=== PATIENT | female | born 1935 | race Caucasian/White ===

== ENCOUNTER 2017-03-03 15:31 | Inpatient (IN) | payer MEDICARE, MEDICAID ==
[2017-03-03 15:31] VITALS: BMI 35.6
--- NOTE | 2017-03-03 15:45 | C.PDOC ---
History Of Present Illness 81F c/o sob and productive cough and chest pain since yesterday worse today, she says from "bronchial asthma." she says she is scheduled for a "catheter with Dr Pendleton on monday." Time Seen by Provider: 03/03/17 15:34 Chief Complaint (Nursing): Chest Pain Past Medical History Vital Signs: Last Vital Signs Temp 98.3 F 03/10/17 14:15 Pulse 82 03/10/17 14:15 Resp 18 03/10/17 14:15 BP 110/81 03/10/17 14:15 Pulse Ox 97 03/10/17 14:15 - Medical History PMH: Anxiety, Arthritis, Asthma, Atrial Fibrillation, Bipolar Disorder, CAD, Cardia Arrhythmia (a fib), CHF, COPD, CVA, Dementia, Depression, Diabetes, Diverticulitis, Fractures (left hip), Gastritis, Hiatal Hernia, HTN, Hypercholesterolemia, Hyperlipidemia, Hypothyroidism, Osteoporosis, Peripheral Edema, Chronic Kidney Disease Surgical History: Cholecystectomy (documented in history but patient does not acknowledge), - [facility] Procedures CORONAR ARTERIOGR-2 CATH (08/24/12) ESOPHAGOGASTRODUODENOSCOPY [EGD] W/CLOSED BIOPSY (10/03/13) EXCISION OF DUODENUM, ENDO, DIAGN (11/02/15) EXCISION OF STOMACH, ENDO, DIAGN (11/02/15) EXERCISE TRMT MUSCULOSK LOW BACK/LE W ASSIST EQUIP (04/26/16) GAIT TRAINING/AMBULAT TREATMENT USING ASSIST EQUIPMENT (04/26/16) GAIT TRAINING/FUNCTIONAL AMBULATION TREATMENT (06/19/15) HOME MANAGEMENT TREATMENT (06/19/15) HOME MANAGEMENT TREATMENT USING ASSIST EQUIPMENT (04/26/16) INTRODUCE OF OTH THERAP SUBST INTO RESP TRACT, VIA OPENING (12/23/16) INTRODUCTION OF ANTI-INFLAM INTO PERIPH VEIN, PERC APPROACH (04/26/16) INTRODUCTION OF ANTI-INFLAM INTO RESP TRACT, VIA OPENING (04/26/16) INTRODUCTION OF SERUM/TOX/VACCINE INTO MUSCLE, PERC APPROACH (03/08/16) LT HEART ANGIOCARDIOGRAM (08/24/12) RT/LEFT HEART CARD CATH (08/24/12) THERAPEUTIC EXERCISE TREATMENT OF MUSCULOSK WHOLE (06/19/15) VACCINATION NEC (10/03/13) Family History: States: Other Other Family History: nc - Social History Hx Tobacco Use: No Hx Alcohol Use: No Hx Substance Use: No - Immunization History Hx Tetanus Toxoid Vaccination: No Hx Influenza Vaccination: No Hx Pneumococcal Vaccination: No Review Of Systems Constitutional: Negative for: Fever Cardiovascular: Positive for: Chest Pain, Edema (chronic) Respiratory: Positive for: Cough, Shortness of Breath. Negative for: Hemoptysis Gastrointestinal: Negative for: Nausea, Vomiting, Abdominal Pain Neurological: Negative for: Weakness, Numbness, Headache Physical Exam - Physical Exam Appears: Non-toxic Skin: Warm, Dry Eye(s): bilateral: PERRL Nose: No Epistaxis Oral Mucosa: Moist Cardiovascular: Rhythm Regular Respiratory: Decreased Breath Sounds, No Accessory Muscle Use Gastrointestinal/Abdominal: Soft, No Tenderness Extremity: Swelling (1+ BLE) Pulses: Left Radial: Normal, Right Radial: Normal Neurological/Psych: Oriented x3, Normal Motor, Normal Sensation, Other (no focla deficits) ED Course And Treatment - Laboratory Results Result Diagrams: 03/08/17 12:00 03/10/17 07:39 Medical Decision Making Medical Decision Making: ecg- a fib w rvr 114, lad, no stemi cxr- HISTORY:sob cough COMPARISON: No prior. FINDINGS: LUNGS: There are low lung volumes. The lungs are clear. PLEURA: No significant pleural effusion identified, no pneumothorax apparent. CARDIOVASCULAR: Normal. OSSEOUS STRUCTURES: No significant abnormalities. VISUALIZED UPPER ABDOMEN: Normal. OTHER FINDINGS: None. IMPRESSION: No active pulmonary disease. Disposition - Disposition Disposition: HOSPITALIZED Disposition Time: 16:59 Condition: STABLE - Clinical Impression Clinical Impression: Chest pain
[2017-03-03] MEDS ORDERED: Albuterol-Ipratrop 3 mg / 0.5 (3 ml) UD IH STA (15:46)
[2017-03-03 16:09] LABS: VENOUS BLOOD GAS BASE EXCESS 10.3 mmol/L (0.0-2.0); VENOUS BLOOD GAS PCO2 57 mmHg (40-60); VENOUS BLOOD PH 7.42 (7.32-7.43)
[2017-03-03 16:10] LABS: BASO # 0.1 K/uL (0.0-0.2); BASO % 2.1 % (0.0-2.0); EOS # 0.1 K/uL (0.0-0.7); EOS % 1.1 % (0.0-4.0); HEMATOCRIT 40.1 % (34.0-47.0); LYMPH # 3.2 K/uL (1.0-4.3); LYMPH % 48.8 % (20.0-40.0); MEAN CELL VOLUME 89.9 fL (81.0-99.0); MEAN CORPUSCULAR HEMOGLOBIN 29.2 pg (27.0-31.0); MEAN CORPUSCULAR HGB CONC 32.5 g/dL (33.0-37.0); MEAN PLATELET VOLUME 8.8 fL (7.2-11.7); MONO # 0.7 K/uL (0.0-0.8); MONO % 10.8 % (0.0-10.0); NRBC % 0.1 % (0.0-2.0); RED CELL DISTRIBUTION WIDTH 14.8 % (11.5-14.5); WHITE BLOOD COUNT 6.5 K/uL (4.8-10.8)
--- NOTE | 2017-03-03 16:10 | RAD ---
HISTORY: sob cough COMPARISON: No prior. FINDINGS: LUNGS: There are low lung volumes. The lungs are clear. PLEURA: No significant pleural effusion identified, no pneumothorax apparent. CARDIOVASCULAR: Normal. OSSEOUS STRUCTURES: No significant abnormalities. VISUALIZED UPPER ABDOMEN: Normal. OTHER FINDINGS: None. IMPRESSION: No active pulmonary disease.
[2017-03-03] MEDS ORDERED: Albuterol-Ipratrop 3 mg / 0.5 (3 ml) UD ONE (16:12)
[2017-03-03 16:21] LABS: CHLORIDE 97 mmol/L (98-107); SODIUM 136 mmol/L (132-148)
[2017-03-03 16:22] LABS: POTASSIUM 3.9 mmol/L (3.6-5.2)
[2017-03-03 16:23] LABS: GFR AFRICAN-AMERICAN > 60
[2017-03-03 16:24] LABS: ALB/GLOB RATIO 1.7 (1.0-2.1); ALKALINE PHOSPHATASE 99 U/L (38-126); ALT/SGPT 42 U/L (9-52); AST/SGOT 32 U/L (14-36); BILIRUBIN,TOTAL 0.7 mg/dL (0.2-1.3); BLOOD UREA NITROGEN 23 mg/dL (7-17); CARBON DIOXIDE 31 mmol/L (22-30); GLUCOSE,RANDOM 86 mg/dL (65-105); TOTAL PROTEIN 6.1 g/dL (6.3-8.3)
[2017-03-03 16:25] LABS: CALCIUM 8.6 mg/dl (8.6-10.4)
[2017-03-03] MEDS ORDERED: MethylPREDNISolone 40 mg Vial IVP STA (23:14)
[2017-03-04] MEDS: Albuterol-Ipratrop 3 mg / 0.5 (3 ml) UD INH SCH ×4 (01:18→19:35)
[2017-03-04] MEDS: Levothyroxine 100 MCG TAB PO SCH (06:08)
[2017-03-04] MEDS ORDERED: (Novolog) Insulin Aspart, Recombinant 100 u/ml 10 ml vial SC SCH (07:30)
[2017-03-04] MEDS: Fluticasone-Salmeterol 500-50mcg Diskus INH SCH ×2 (07:58→19:35)
[2017-03-04 08:00] LABS: CHLORIDE 98 mmol/L (98-107)
[2017-03-04 08:01] LABS: POTASSIUM 3.7 mmol/L (3.6-5.2); SODIUM 135 mmol/L (132-148)
[2017-03-04 08:03] LABS: ALB/GLOB RATIO 1.1 (1.0-2.1); AST/SGOT 36 U/L (14-36); BILIRUBIN,TOTAL 0.4 mg/dL (0.2-1.3); BLOOD UREA NITROGEN 20 mg/dL (7-17); CARBON DIOXIDE 29 mmol/L (22-30); GFR AFRICAN-AMERICAN > 60; TOTAL PROTEIN 6.9 g/dL (6.3-8.3)
[2017-03-04 08:04] LABS: ALKALINE PHOSPHATASE 99 U/L (38-126); ALT/SGPT 45 U/L (9-52); CALCIUM 8.8 mg/dl (8.6-10.4); GLUCOSE,RANDOM 143 mg/dL (65-105)
[2017-03-04 08:18] LABS: FREE T4 1.65 ng/dL (0.78-2.19)
[2017-03-04 08:32] LABS: THYROID STIMULATING HORMONE 0.04 mIU/L (0.46-4.68)
--- NOTE | 2017-03-04 10:25 | CP.PCM.HP ---
History of Present Illness - History of Present Illness History of Present Illness: pt came for chest pain pressure and sob Present on Admission - Present on Admission Any Indicators Present on Admission: Yes Review of Systems - Review of Systems Systems not reviewed;Unavailable: Acuity of Condition - Constitutional Constitutional: Fatigue, Sleep Apnea, Weakness - EENT Eyes: As Per HPI Ears: As Per HPI Nose/Mouth/Throat: As Per HPI - Breasts Breasts: As Per HPI - Cardiovascular Cardiovascular: Chest Pain at Rest, Chest Pain with Activity, Dyspnea, Irregular Heart Rhythm, Leg Edema, Pedal Edema - Respiratory Respiratory: Dyspnea - Gastrointestinal Gastrointestinal: Constipation - Genitourinary Genitourinary: Urinary Frequency - Reproductive: Female Reproductive:Female: Post Menopausal - Menstruation Menstruation: Post Menopausal - Musculoskeletal Musculoskeletal: Arthralgias, Back Pain, Stiffness - Integumentary Integumentary: As Per HPI - Neurological Neurological: Lack of Coordination - Psychiatric Psychiatric: Depression - Endocrine Endocrine: Cold Intolorance - Hematologic/Lymphatic Hematologic: As Per HPI Past Patient History - Infectious Disease Hx of Infectious Diseases: None - Past Medical History & Family History Past Medical History?: Yes - Past Social History Smoking Status: Never Smoked Chewing Tobacco Use: No Cigar Use: No Alcohol: None Drugs: Denies Home Situation {Lives}: Alone Domestic Violence: Negative - CARDIAC Hx Atrial Fibrillation: Yes Hx Cardia Arrhythmia: Yes (a fib) Hx Congestive Heart Failure: Yes Hx Hypercholesterolemia: Yes Hx Hypertension: Yes Hx Peripheral Edema: Yes - PULMONARY Hx Asthma: Yes Hx Chronic Obstructive Pulmonary Disease (COPD): Yes - NEUROLOGICAL Hx Dementia: Yes - HEENT Hx HEENT Problems: Yes 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) Hx Glaucoma: Yes (right eye) - RENAL Hx Chronic Kidney Disease: Yes - ENDOCRINE/METABOLIC Hx Hypothyroidism: Yes - INTEGUMENTARY Hx Dermatological Problems: No Other/Comment: redness sacrum/buttocks - MUSCULOSKELETAL/RHEUMATOLOGICAL Hx Arthritis: Yes Hx Falls: Yes Hx Fractures: Yes (left hip) Hx Osteoporosis: Yes - GASTROINTESTINAL Hx Diverticulitis: Yes Hx Gastritis: Yes - GENITOURINARY/GYNECOLOGICAL Hx Genitourinary Disorders: Yes Hx Incontinence: Yes - PSYCHIATRIC Hx Anxiety: Yes Hx Bipolar Disorder: Yes Hx Depression: Yes Hx Substance Use: No - SURGICAL HISTORY Hx Cholecystectomy: Yes (documented in history but patient does not acknowledge) - ANESTHESIA Hx Anesthesia: Yes Hx Anesthesia Reactions: No Hx Malignant Hyperthermia: No Meds Allergies/Adverse Reactions: Allergies Allergy/AdvReac Type Severity Reaction Status Date / Time No Known Allergies Allergy Verified 03/03/17 15:38 Physical Exam - Constitutional Appears: Non-toxic - Head Exam Head Exam: ATRAUMATIC - Eye Exam Pupil Exam: PERRL - ENT Exam ENT Exam: Mucous Membranes Moist - Neck Exam Neck exam: Positive for: Full Rom - Respiratory Exam Respiratory Exam: Decreased Breath Sounds - Cardiovascular Exam Cardiovascular Exam: Tachycardia - GI/Abdominal Exam GI & Abdominal Exam: Normal Bowel Sounds Results - Vital Signs Recent Vital Signs: Last Vital Signs Temp 97.4 F L 03/04/17 07:51 Pulse 72 03/04/17 07:51 Resp 20 03/04/17 07:51 BP 119/76 03/04/17 07:51 Pulse Ox 98 03/04/17 07:51 - Labs Result Diagrams: 03/03/17 16:04 03/04/17 07:15 Labs: Laboratory Results - last 24 hr 03/03/17 03/03/17 03/03/17 16:00 16:04 16:04 WBC 6.5 RBC 4.46 Hgb 13.0 Hct 40.1 MCV 89.9 MCH 29.2 MCHC 32.5 L RDW 14.8 H Plt Count 176 MPV 8.8 Neut % (Auto) 37.2 L Lymph % (Auto) 48.8 H Florence % (Auto) 10.8 H Eos % (Auto) 1.1 Baso % (Auto) 2.1 H Neut # 2.4 Lymph # 3.2 Florence # 0.7 Eos # 0.1 Baso # 0.1 pO2 32 VBG pH 7.42 VBG pCO2 57 VBG HCO3 32.0 VBG Total CO2 38.7 H VBG O2 Sat (Calc) 65.7 H VBG Base Excess 10.3 H VBG Potassium 3.6 Sodium 139.0 136 Chloride 104.0 97 L Glucose 97 Lactate 1.1 FiO2 21.0 Potassium 3.9 Carbon Dioxide 31 H Anion Gap 12 BUN 23 H Creatinine 0.7 Est GFR ( Amer) > 60 Est GFR (Non-Af Amer) > 60 POC Glucose (mg/dL) Random Glucose 86 Calcium 8.6 Total Bilirubin 0.7 AST 32 ALT 42 Alkaline Phosphatase 99 Total Creatine Kinase CK-MB (Mass) Troponin I < 0.0120 Troponin I, Quant NT-Pro-B Natriuret Pep 2450 H Total Protein 6.1 L Albumin 3.8 Globulin 2.3 Albumin/Globulin Ratio 1.7 Free T4 TSH 3rd Generation Venous Blood Potassium 3.6 03/03/17 03/03/17 03/04/17 18:35 21:01 00:41 WBC RBC Hgb Hct MCV MCH MCHC RDW Plt Count MPV Neut % (Auto) Lymph % (Auto) Florence % (Auto) Eos % (Auto) Baso % (Auto) Neut # Lymph # [place] # Eos # Baso # pO2 VBG pH VBG pCO2 VBG HCO3 VBG Total CO2 VBG O2 Sat (Calc) VBG Base Excess VBG Potassium Sodium Chloride Glucose Lactate FiO2 Potassium Carbon Dioxide Anion Gap BUN Creatinine Est GFR ( Amer) Est GFR (Non-Af Amer) POC Glucose (mg/dL) 107 206 H Random Glucose Calcium Total Bilirubin AST ALT Alkaline Phosphatase Total Creatine Kinase 23 L CK-MB (Mass) 0.54 Troponin I Troponin I, Quant < 0.0120 NT-Pro-B Natriuret Pep Total Protein Albumin Globulin Albumin/Globulin Ratio Free T4 TSH 3rd Generation Venous Blood Potassium 03/04/17 03/04/17 03/04/17 06:45 07:15 07:15 WBC RBC Hgb Hct MCV MCH MCHC RDW Plt Count MPV Neut % (Auto) Lymph % (Auto) Florence % (Auto) Eos % (Auto) Baso % (Auto) Neut # Lymph # [place] # Eos # Baso # pO2 VBG pH VBG pCO2 VBG HCO3 VBG Total CO2 VBG O2 Sat (Calc) VBG Base Excess VBG Potassium Sodium Chloride Glucose Lactate FiO2 Potassium Carbon Dioxide Anion Gap BUN Creatinine Est GFR ( Amer) Est GFR (Non-Af Amer) POC Glucose (mg/dL) 144 H Random Glucose Calcium Total Bilirubin AST ALT Alkaline Phosphatase Total Creatine Kinase 20 L CK-MB (Mass) 0.51 Troponin I Troponin I, Quant < 0.0120 NT-Pro-B Natriuret Pep Total Protein Albumin Globulin Albumin/Globulin Ratio Free T4 1.65 TSH 3rd Generation 0.04 L Venous Blood Potassium 03/04/17 07:15 WBC RBC Hgb Hct MCV MCH MCHC RDW Plt Count MPV Neut % (Auto) Lymph % (Auto) Florence % (Auto) Eos % (Auto) Baso % (Auto) Neut # Lymph # [place] # Eos # Baso # pO2 VBG pH VBG pCO2 VBG HCO3 VBG Total CO2 VBG O2 Sat (Calc) VBG Base Excess VBG Potassium Sodium 135 Chloride 98 Glucose Lactate FiO2 Potassium 3.7 Carbon Dioxide 29 Anion Gap 13 BUN 20 H Creatinine 0.7 Est GFR ( Amer) > 60 Est GFR (Non-Af Amer) > 60 POC Glucose (mg/dL) Random Glucose 143 H Calcium 8.8 Total Bilirubin 0.4 AST 36 ALT 45 Alkaline Phosphatase 99 Total Creatine Kinase CK-MB (Mass) Troponin I Troponin I, Quant NT-Pro-B Natriuret Pep 3060 H Total Protein 6.9 Albumin 3.6 Globulin 3.3 Albumin/Globulin Ratio 1.1 Free T4 TSH 3rd Generation Venous Blood Potassium Assessment & Plan - Assessment and Plan (Free Text) Assessment: ac chest pain chf palpitation pulmonary htn hypothyroid arthritis prediabetic asthma Plan: as per orders - Date & Time Date: 03/04/17 Time: 10:31
[2017-03-04] MEDS: guaiFENesin 600 mg ER Tab PO SCH ×2 (10:30→18:29)
[2017-03-04] MEDS: diltiaZEM 240 mg/24 Hours CD Cap PO SCH (10:30)
[2017-03-04] MEDS: Enoxaparin 40 mg Syringe SC SCH (10:41)
[2017-03-04] MEDS ORDERED: DICLOFENAC SODIUM APPL TOP PRN (10:47)
[2017-03-04] MEDS ORDERED: Omega-3-Acid Ethyl Esters 1 GM Cap PO SCH (18:00)
[2017-03-04] MEDS: Pantoprazole 40 mg EC Tab PO SCH (18:29)
[2017-03-04] MEDS ORDERED: Magnesium Hydroxide Susp 30 ml UD PO ONE (23:31)
[2017-03-05] MEDS: Albuterol-Ipratrop 3 mg / 0.5 (3 ml) UD INH SCH ×4 (01:46→19:38)
[2017-03-05] MEDS: Levothyroxine 100 MCG TAB PO SCH (06:12)
[2017-03-05] MEDS: Sucralfate 1 gm/10 ml Oral Susp UD PO SCH ×3 (08:30→16:59)
[2017-03-05] MEDS: LIPASE/PROTEASE/AMYLASE 4,200 U ECC PO SCH ×3 (08:30→18:00)
[2017-03-05] MEDS: Fluticasone-Salmeterol 500-50mcg Diskus INH SCH ×2 (08:45→19:38)
[2017-03-05] MEDS: Omega-3-Acid Ethyl Esters 1 GM Cap PO SCH ×2 (10:41→18:25)
[2017-03-05] MEDS: guaiFENesin 600 mg ER Tab PO SCH ×2 (10:42→18:25)
[2017-03-05] MEDS: Pantoprazole 40 mg EC Tab PO SCH (10:42)
[2017-03-05] MEDS: diltiaZEM 240 mg/24 Hours CD Cap PO SCH (10:42)
[2017-03-05] MEDS: Enoxaparin 40 mg Syringe SC SCH (10:44)
--- NOTE | 2017-03-05 12:15 | CP.PCM.PN ---
Subjective - Date & Time of Evaluation Date of Evaluation: 03/05/17 Time of Evaluation: 12:12 - Subjective Subjective: less sob less oeadeama has cough today Objective - Vital Signs/Intake and Output Vital Signs (last 24 hours): Temp Pulse Resp BP Pulse Ox 98.0 F 109 H 20 98/56 L 97 03/05/17 08:32 03/05/17 08:32 03/05/17 08:32 03/05/17 10:45 03/05/17 08:32 Intake and Output: 03/05/17 03/05/17 06:59 18:59 Intake Total 300 Balance 300 - Medications Medications: Current Medications Albuterol/Ipratropium (Duoneb 3 Mg/0.5 Mg (3 Ml) Ud) 3 ml INH RQ6 [facility] Last Admin: 03/05/17 08:45 Dose: 3 ml Aspirin (Ecotrin) 81 mg PO DAILY [facility] Last Admin: 03/05/17 10:42 Dose: 81 mg Diltiazem HCl (Cardizem Cd) 240 mg PO DAILY [facility] Last Admin: 03/05/17 10:42 Dose: Not Given Docusate Sodium (Colace) 200 mg PO HS [facility] Last Admin: 03/04/17 22:51 Dose: 200 mg Enoxaparin Sodium (Lovenox) 40 mg SC DAILY [facility] Last Admin: 03/05/17 10:44 Dose: 40 mg Furosemide (Lasix) 40 mg IVP DAILY [facility] Last Admin: 03/05/17 10:44 Dose: Not Given Guaifenesin (Mucinex La) 600 mg PO BID [facility] Last Admin: 03/05/17 10:42 Dose: 600 mg Home Med (Sildenafil [Revatio]) 20 mg PO TID [facility] Insulin Aspart (Novolog) 0 unit SC [facility] PRN Reason: Protocol Isosorbide Mononitrate (Imdur Er) 30 mg PO DAILY [facility] Last Admin: 03/05/17 10:44 Dose: Not Given Levothyroxine Sodium (Synthroid) 100 mcg PO DAILY@0630 [facility] Last Admin: 03/05/17 06:12 Dose: 100 mcg Montelukast Sodium (Singulair) 10 mg PO HS [facility] Last Admin: 03/04/17 22:51 Dose: 10 mg [id number] Ethyl Esters (Lovaza) 2 gm PO BID [facility] Last Admin: 03/05/17 10:41 Dose: 2 gm Pantoprazole Sodium (Protonix Ec Tab) 40 mg PO DAILY [facility] Last Admin: 03/05/17 10:42 Dose: 40 mg Rivastigmine (Exelon 4.6 Mg/24 Hr Patch) 3 patch TD DAILY [facility] Last Admin: 03/05/17 10:43 Dose: 3 patch Rosuvastatin Calcium (Crestor) 5 mg PO HS [facility] Last Admin: 03/04/17 22:52 Dose: 5 mg Fluticasone/Salmeterol (Advair Diskus 500/50) 1 puff INH RQ12 [facility] Last Admin: 03/05/17 08:45 Dose: 1 puff Sitagliptin Phosphate (Januvia) 50 mg PO DAILY [facility] Last Admin: 03/05/17 10:42 Dose: 50 mg Sucralfate (Carafate Oral Susp) 1 gm PO ACTID [facility] Last Admin: 03/05/17 10:39 Dose: 1 gm - Labs Labs: 03/03/17 16:04 03/04/17 07:15 - Constitutional Appears: Non-toxic - Head Exam Head Exam: NORMAL INSPECTION - Eye Exam Eye Exam: Normal appearance Pupil Exam: PERRL - ENT Exam ENT Exam: Mucous Membranes Moist - Neck Exam Neck Exam: Tenderness - Respiratory Exam Respiratory Exam: Decreased Breath Sounds, Rales - Cardiovascular Exam Cardiovascular Exam: REGULAR RHYTHM - GI/Abdominal Exam GI & Abdominal Exam: Normal Bowel Sounds - Rectal Exam Rectal Exam: Deferred - Extremities Exam Extremities Exam: Pedal Edema - Back Exam Back Exam: NORMAL INSPECTION - Neurological Exam Neurological Exam: Normal Gait - Psychiatric Exam Psychiatric exam: Normal Affect - Skin Skin Exam: Normal Color Assessment and Plan - Assessment and Plan (Free Text) Assessment: ac chf copd ex dm htn arthritis dificulty ambulating Plan: cont as per orders
--- NOTE | 2017-03-05 19:20 | CP.PCM.CON ---
History of Present Illness - History of Present Illness History of Present Illness: consulation for evaluation of worsening SOB and chest discomfort HPI: Past Patient History - Infectious Disease Hx of Infectious Diseases: None - Past Medical History & Family History Past Medical History?: Yes - Past Social History Smoking Status: Never Smoked Chewing Tobacco Use: No Cigar Use: No Alcohol: None Drugs: Denies Home Situation {Lives}: Alone Domestic Violence: Negative - CARDIAC Hx Hypercholesterolemia: Yes Hx Hypertension: Yes - PULMONARY Hx Asthma: Yes Hx Chronic Obstructive Pulmonary Disease (COPD): Yes - NEUROLOGICAL HX Cerebrovascular Accident: Yes - HEENT Hx HEENT Problems: Yes 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) Hx Glaucoma: Yes (right eye) - RENAL Hx Chronic Kidney Disease: Yes - ENDOCRINE/METABOLIC Hx Hypothyroidism: Yes - INTEGUMENTARY Hx Dermatological Problems: No Other/Comment: redness sacrum/buttocks - MUSCULOSKELETAL/RHEUMATOLOGICAL Hx Arthritis: Yes Hx Falls: Yes Hx Fractures: Yes (left hip) Hx Osteoporosis: Yes - GASTROINTESTINAL Hx Diverticulitis: Yes Hx Gastritis: Yes - GENITOURINARY/GYNECOLOGICAL Hx Genitourinary Disorders: Yes Hx Incontinence: Yes - PSYCHIATRIC Hx Anxiety: Yes Hx Bipolar Disorder: Yes Hx Depression: Yes Hx Substance Use: No - SURGICAL HISTORY Hx Cholecystectomy: Yes (documented in history but patient does not acknowledge) - ANESTHESIA Hx Anesthesia: Yes Hx Anesthesia Reactions: No Hx Malignant Hyperthermia: No Meds Allergies/Adverse Reactions: Allergies Allergy/AdvReac Type Severity Reaction Status Date / Time No Known Allergies Allergy Verified 03/03/17 15:38 - Medications Medications: Current Medications Albuterol/Ipratropium (Duoneb 3 Mg/0.5 Mg (3 Ml) Ud) 3 ml INH RQ6 [facility] Last Admin: 03/05/17 14:03 Dose: 3 ml Aspirin (Ecotrin) 81 mg PO DAILY [facility] Last Admin: 03/05/17 10:42 Dose: 81 mg Diltiazem HCl (Cardizem Cd) 240 mg PO DAILY [facility] Last Admin: 03/05/17 10:42 Dose: Not Given Docusate Sodium (Colace) 200 mg PO HS [facility] Last Admin: 03/04/17 22:51 Dose: 200 mg Enoxaparin Sodium (Lovenox) 40 mg SC DAILY [facility] Last Admin: 03/05/17 10:44 Dose: 40 mg Furosemide (Lasix) 40 mg IVP DAILY [facility] Last Admin: 03/05/17 10:44 Dose: Not Given Guaifenesin (Mucinex La) 600 mg PO BID [facility] Last Admin: 03/05/17 18:25 Dose: 600 mg Home Med (Sildenafil [Revatio]) 20 mg PO TID [facility] Insulin Aspart (Novolog) 0 unit SC [facility] PRN Reason: Protocol Isosorbide Mononitrate (Imdur Er) 30 mg PO DAILY [facility] Last Admin: 03/05/17 10:44 Dose: Not Given Levothyroxine Sodium (Synthroid) 100 mcg PO DAILY@0630 [facility] Last Admin: 03/05/17 06:12 Dose: 100 mcg Montelukast Sodium (Singulair) 10 mg PO HS [facility] Last Admin: 03/04/17 22:51 Dose: 10 mg Crfgt-[id number] Ethyl Esters (Lovaza) 2 gm PO BID [facility] Last Admin: 03/05/17 18:25 Dose: 2 gm Pantoprazole Sodium (Protonix Ec Tab) 40 mg PO DAILY [facility] Last Admin: 03/05/17 10:42 Dose: 40 mg Rivastigmine (Exelon 4.6 Mg/24 Hr Patch) 3 patch TD DAILY [facility] Last Admin: 03/05/17 10:43 Dose: 3 patch Rosuvastatin Calcium (Crestor) 5 mg PO HS [facility] Last Admin: 03/04/17 22:52 Dose: 5 mg Fluticasone/Salmeterol (Advair Diskus 500/50) 1 puff INH RQ12 [facility] Last Admin: 03/05/17 08:45 Dose: 1 puff Sitagliptin Phosphate (Januvia) 50 mg PO DAILY [facility] Last Admin: 03/05/17 10:42 Dose: 50 mg Sucralfate (Carafate Oral Susp) 1 gm PO ACTID [facility] Last Admin: 03/05/17 16:59 Dose: 1 gm Results - Vital Signs Recent Vital Signs: Last Vital Signs Temp 97.8 F 03/05/17 15:59 Pulse 103 H 03/05/17 15:59 Resp 20 03/05/17 15:59 BP 105/74 03/05/17 15:59 Pulse Ox 97 03/05/17 15:59 - Labs Result Diagrams: 03/03/17 16:04 11/11/17 07:15 Labs: Laboratory Results - last 24 hr 03/04/17 03/05/17 03/05/17 21:39 07:09 11:40 POC Glucose (mg/dL) 123 H 83 111 H 03/05/17 16:18 POC Glucose (mg/dL) 100
--- NOTE | 2017-03-05 19:20 | CP.PCM.PN ---
Subjective - Date & Time of Evaluation Date of Evaluation: 03/05/17 Time of Evaluation: 19:20 Objective - Vital Signs/Intake and Output Vital Signs (last 24 hours): Temp Pulse Resp BP Pulse Ox 97.8 F 103 H 20 105/74 97 03/05/17 15:59 03/05/17 15:59 03/05/17 15:59 03/05/17 15:59 03/05/17 15:59 Intake and Output: 03/05/17 03/06/17 18:59 06:59 Intake Total 240 Balance 240 - Medications Medications: Current Medications Albuterol/Ipratropium (Duoneb 3 Mg/0.5 Mg (3 Ml) Ud) 3 ml INH RQ6 [facility] Last Admin: 03/05/17 14:03 Dose: 3 ml Aspirin (Ecotrin) 81 mg PO DAILY [facility] Last Admin: 03/05/17 10:42 Dose: 81 mg Diltiazem HCl (Cardizem Cd) 240 mg PO DAILY [facility] Last Admin: 03/05/17 10:42 Dose: Not Given Docusate Sodium (Colace) 200 mg PO [facility] Last Admin: 03/04/17 22:51 Dose: 200 mg Enoxaparin Sodium (Lovenox) 40 mg SC DAILY [facility] Last Admin: 03/05/17 10:44 Dose: 40 mg Furosemide (Lasix) 40 mg IVP DAILY [facility] Last Admin: 03/05/17 10:44 Dose: Not Given Guaifenesin (Mucinex La) 600 mg PO BID [facility] Last Admin: 03/05/17 18:25 Dose: 600 mg Home Med (Sildenafil [Revatio]) 20 mg PO TID [facility] Insulin Aspart (Novolog) 0 unit SC [facility] PRN Reason: Protocol Isosorbide Mononitrate (Imdur Er) 30 mg PO DAILY [facility] Last Admin: 03/05/17 10:44 Dose: Not Given Levothyroxine Sodium (Synthroid) 100 mcg PO DAILY@0630 [facility] Last Admin: 03/05/17 06:12 Dose: 100 mcg Montelukast Sodium (Singulair) 10 mg PO HS [facility] Last Admin: 03/04/17 22:51 Dose: 10 mg Hwqai-2-Xtor Ethyl Esters (Lovaza) 2 gm PO BID [facility] Last Admin: 03/05/17 18:25 Dose: 2 gm Pantoprazole Sodium (Protonix Ec Tab) 40 mg PO DAILY [facility] Last Admin: 03/05/17 10:42 Dose: 40 mg Rivastigmine (Exelon 4.6 Mg/24 Hr Patch) 3 patch TD DAILY [facility] Last Admin: 03/05/17 10:43 Dose: 3 patch Rosuvastatin Calcium (Crestor) 5 mg PO HS [facility] Last Admin: 03/04/17 22:52 Dose: 5 mg Fluticasone/Salmeterol (Advair Diskus 500/50) 1 puff INH RQ12 [facility] Last Admin: 03/05/17 08:45 Dose: 1 puff Sitagliptin Phosphate (Januvia) 50 mg PO DAILY [facility] Last Admin: 03/05/17 10:42 Dose: 50 mg Sucralfate (Carafate Oral Susp) 1 gm PO ACTID [facility] Last Admin: 03/05/17 16:59 Dose: 1 gm - Labs Labs: 03/03/17 16:04 03/04/17 07:15
[2017-03-06] MEDS: Albuterol-Ipratrop 3 mg / 0.5 (3 ml) UD INH SCH ×5 (02:38→20:28)
[2017-03-06] MEDS: Levothyroxine 100 MCG TAB PO SCH (06:22)
[2017-03-06 06:45] LABS: BLOOD UREA NITROGEN 26 mg/dL (7-17); CALCIUM 8.4 mg/dl (8.6-10.4); CARBON DIOXIDE 32 mmol/L (22-30); CHLORIDE 96 mmol/L (98-107); CHOLESTEROL 127 mg/dL (0-199); GFR AFRICAN-AMERICAN > 60; GLUCOSE,RANDOM 100 mg/dL (65-105); POTASSIUM 3.9 mmol/L (3.6-5.2); SODIUM 135 mmol/L (132-148)
[2017-03-06 06:52] LABS: FREE T4 1.57 ng/dL (0.78-2.19)
[2017-03-06 07:06] LABS: THYROID STIMULATING HORMONE 0.22 mIU/L (0.46-4.68)
[2017-03-06] MEDS: LIPASE/PROTEASE/AMYLASE 4,200 U ECC PO SCH ×3 (07:49→17:00)
[2017-03-06] MEDS: Sucralfate 1 gm/10 ml Oral Susp UD PO SCH ×4 (07:49→18:09)
[2017-03-06] MEDS: Fluticasone-Salmeterol 500-50mcg Diskus INH SCH ×2 (08:49→20:25)
[2017-03-06] MEDS: diltiaZEM 240 mg/24 Hours CD Cap PO SCH (10:21)
[2017-03-06] MEDS: Pantoprazole 40 mg EC Tab PO SCH (10:22)
[2017-03-06] MEDS: Omega-3-Acid Ethyl Esters 1 GM Cap PO SCH ×2 (10:22→20:13)
[2017-03-06] MEDS: Enoxaparin 40 mg Syringe SC SCH (10:22)
[2017-03-06] MEDS: guaiFENesin 600 mg ER Tab PO SCH ×2 (10:22→20:13)
--- NOTE | 2017-03-06 12:10 | CP.PCM.PN ---
Subjective - Date & Time of Evaluation Date of Evaluation: 03/06/17 Time of Evaluation: 12:08 - Subjective Subjective: Pt s/e bedside, states she is feeling okay. She states that she does not need her oxygen at this time, and that her sob is improved. Pt denies cp. NO further complaints at this time. Objective - Vital Signs/Intake and Output Vital Signs (last 24 hours): Temp Pulse Resp BP Pulse Ox 97.7 F 93 H 20 114/79 99 03/06/17 08:09 03/06/17 08:09 03/06/17 08:09 03/06/17 08:09 03/06/17 08:09 Intake and Output: 03/06/17 03/06/17 06:59 18:59 Intake Total 400 Balance 400 - Medications Medications: Current Medications Albuterol/Ipratropium (Duoneb 3 Mg/0.5 Mg (3 Ml) Ud) 3 ml INH RQ6 [facility] Last Admin: 03/06/17 08:49 Dose: 3 ml Aspirin (Ecotrin) 81 mg PO DAILY [facility] Last Admin: 03/06/17 10:21 Dose: Not Given Diltiazem HCl (Cardizem Cd) 240 mg PO DAILY [facility] Last Admin: 03/06/17 10:21 Dose: Not Given Docusate Sodium (Colace) 200 mg PO HS [facility] Last Admin: 03/05/17 22:25 Dose: 200 mg Enoxaparin Sodium (Lovenox) 40 mg SC DAILY [facility] Last Admin: 03/06/17 10:22 Dose: Not Given Furosemide (Lasix) 40 mg IVP DAILY [facility] Last Admin: 03/06/17 10:22 Dose: Not Given Guaifenesin (Mucinex La) 600 mg PO BID [facility] Last Admin: 03/06/17 10:22 Dose: Not Given Home Med (Sildenafil [Revatio]) 20 mg PO TID [facility] Insulin Aspart (Novolog) 0 unit SC [facility] PRN Reason: Protocol Isosorbide Mononitrate (Imdur Er) 30 mg PO DAILY [facility] Last Admin: 03/06/17 10:21 Dose: Not Given Levothyroxine Sodium (Synthroid) 100 mcg PO DAILY@0630 [facility] Last Admin: 03/06/17 06:22 Dose: 100 mcg Montelukast Sodium (Singulair) 10 mg PO HS [facility] Last Admin: 03/05/17 22:25 Dose: 10 mg [id number] Ethyl Esters (Lovaza) 2 gm PO BID [facility] Last Admin: 03/06/17 10:22 Dose: Not Given Pantoprazole Sodium (Protonix Ec Tab) 40 mg PO DAILY [facility] Last Admin: 03/06/17 10:22 Dose: Not Given Rivastigmine (Exelon 4.6 Mg/24 Hr Patch) 3 patch TD DAILY [facility] Last Admin: 03/06/17 10:21 Dose: Not Given Rosuvastatin Calcium (Crestor) 5 mg PO HS [facility] Last Admin: 03/05/17 22:25 Dose: 5 mg Fluticasone/Salmeterol (Advair Diskus 500/50) 1 puff INH RQ12 [facility] Last Admin: 03/06/17 08:49 Dose: 1 puff Sitagliptin Phosphate (Januvia) 50 mg PO DAILY [facility] Last Admin: 03/06/17 10:22 Dose: Not Given Sucralfate (Carafate Oral Susp) 1 gm PO ACTID [facility] Last Admin: 03/06/17 07:51 Dose: Not Given - Labs Labs: 03/03/17 16:04 03/06/17 06:12 - Additional Findings Additional findings: Phys Exam: VS as below Const'l: a&o x 4, nad, morbidly obese, not currently using her oxygen Head/Neck: neck supple, no jvd, trachea midline, carotid midline, no cervical /head mass Eyes: tutu, nonicteric sclera, eom intact ENT: auditory acuity grossly intact, throat not congested, no nasal deformity Cardio: rrr, no m/r/g, no carotid bruit, nml s1, s2 Pulm: +diffuse rales anterior and posterior; no accessory muscle use, equal nml breath sounds bilaterally Abd: s/nt/nd, nbs x 4 q, no palpable masses Derm: no rashes, no ulcers, no lesions Extr: no edema, no cyanosis, no calf tenderness, no lesions, no varicosities Neuro: cn II-XII grossly intact, ue and le 5/5 muscle strength bilaterally, no los ue, le bilaterally and core Assessment and Plan - Assessment and Plan (Free Text) Assessment: A/P 81 F w/ Hx of CHF, COPD, Pulm HTN, and HLD presents with worsening sob and chest pressure. Tropes neg X 2 CHF Exacerbation - Continue diuresis - Taking her to [facility] today Thank you for this interesting consult Abhinav Daniel DO PGY - 1 d/w Dr. Pendleton.
--- NOTE | 2017-03-06 13:58 | CARD ---
APPROVED REPORT EKG Measurement Heart [id number] <Conclusion> Atrial fibrillation Left axis deviation Abnormal ECG
--- NOTE | 2017-03-06 13:59 | CARD ---
APPROVED REPORT EKG Measurement Heart [id number] <Conclusion> Atrial fibrillation with rapid ventricular response Left axis deviation Abnormal ECG
[2017-03-06] MEDS ORDERED: Lidocaine 2% Inj (20ml) ONE (16:03)
[2017-03-06] MEDS ORDERED: Midazolam 2 MG/2 ML VIAL ONE (16:03)
[2017-03-06] MEDS ORDERED: Iohexol 350mg/ml 100 ML ONE (16:27)
[2017-03-06] MEDS ORDERED: Naloxone 0.4 mg/ml Inj (Adult) ONE (16:44)
[2017-03-06] MEDS ORDERED: Flumazenil 0.1 mg/ml Inj (5ml) IVP ONE (16:44)
--- NOTE | 2017-03-06 16:56 | CP.PCM.PN ---
Subjective - Date & Time of Evaluation Date of Evaluation: 03/06/17 Time of Evaluation: 04:00 - Subjective Subjective: pt less sob ocasionaly chest pain Objective - Vital Signs/Intake and Output Vital Signs (last 24 hours): Temp Pulse Resp BP Pulse Ox 97.7 F 93 H 20 114/79 99 03/06/17 08:09 03/06/17 08:09 03/06/17 08:09 03/06/17 08:09 03/06/17 08:09 Intake and Output: 03/06/17 03/06/17 06:59 18:59 Intake Total 400 Balance 400 - Medications Medications: Current Medications Albuterol/Ipratropium (Duoneb 3 Mg/0.5 Mg (3 Ml) Ud) 3 ml INH RQ6 [facility] Last Admin: 03/06/17 13:52 Dose: 3 ml Aspirin (Ecotrin) 81 mg PO DAILY [facility] Last Admin: 03/06/17 10:21 Dose: Not Given Diltiazem HCl (Cardizem Cd) 240 mg PO DAILY [facility] Last Admin: 03/06/17 10:21 Dose: Not Given Docusate Sodium (Colace) 200 mg PO HS [facility] Last Admin: 03/05/17 22:25 Dose: 200 mg Enoxaparin Sodium (Lovenox) 40 mg SC DAILY [facility] Last Admin: 03/06/17 10:22 Dose: Not Given Furosemide (Lasix) 40 mg IVP DAILY [facility] Last Admin: 03/06/17 10:22 Dose: Not Given Guaifenesin (Mucinex La) 600 mg PO BID [facility] Last Admin: 03/06/17 10:22 Dose: Not Given Home Med (Sildenafil [Revatio]) 20 mg PO TID [facility] Insulin Aspart (Novolog) 0 unit SC [facility] PRN Reason: Protocol Isosorbide Mononitrate (Imdur Er) 30 mg PO DAILY [facility] Last Admin: 03/06/17 10:21 Dose: Not Given Levothyroxine Sodium (Synthroid) 100 mcg PO DAILY@0630 [facility] Last Admin: 03/06/17 06:22 Dose: 100 mcg Montelukast Sodium (Singulair) 10 mg PO HS [facility] Last Admin: 03/05/17 22:25 Dose: 10 mg [id number] Ethyl Esters (Lovaza) 2 gm PO BID [facility] Last Admin: 03/06/17 10:22 Dose: Not Given Pantoprazole Sodium (Protonix Ec Tab) 40 mg PO DAILY [facility] Last Admin: 03/06/17 10:22 Dose: Not Given Rivastigmine (Exelon 4.6 Mg/24 Hr Patch) 3 patch TD DAILY [facility] Last Admin: 03/06/17 10:21 Dose: Not Given Rosuvastatin Calcium (Crestor) 5 mg PO HS [facility] Last Admin: 03/05/17 22:25 Dose: 5 mg Fluticasone/Salmeterol (Advair Diskus 500/50) 1 puff INH RQ12 [facility] Last Admin: 03/06/17 08:49 Dose: 1 puff Sitagliptin Phosphate (Januvia) 50 mg PO DAILY [facility] Last Admin: 03/06/17 10:22 Dose: Not Given Sucralfate (Carafate Oral Susp) 1 gm PO ACTID [facility] Last Admin: 03/06/17 12:10 Dose: Not Given - Labs Labs: 03/03/17 16:04 03/06/17 06:12 - Constitutional Appears: Non-toxic - Head Exam Head Exam: NORMAL INSPECTION - Eye Exam Eye Exam: Periorbital tenderness - ENT Exam ENT Exam: Mucous Membranes Moist - Neck Exam Neck Exam: Normal Inspection - Respiratory Exam Respiratory Exam: Decreased Breath Sounds - Cardiovascular Exam Cardiovascular Exam: REGULAR RHYTHM, +S1, +S2, +S4 - GI/Abdominal Exam GI & Abdominal Exam: Normal Bowel Sounds - Rectal Exam Rectal Exam: Deferred - Extremities Exam Extremities Exam: Pedal Edema - Back Exam Back Exam: NORMAL INSPECTION - Neurological Exam Neurological Exam: Normal Gait, Oriented x3 - Psychiatric Exam Psychiatric exam: Normal Mood - Skin Skin Exam: Warm Assessment and Plan - Assessment and Plan (Free Text) Assessment: chf cad phypertension Plan: cardiac cath today
[2017-03-06 17:00] LABS: DRAW SITE VEN RA; VENOUS BLOOD GAS BASE EXCESS 10.7 mmol/L (0.0-2.0); VENOUS BLOOD GAS PCO2 65 mmHg (40-60); VENOUS BLOOD PH 7.38 (7.32-7.43)
[2017-03-06 17:04] LABS: DRAW SITE VEN PA; VENOUS BLOOD GAS BASE EXCESS 8.4 mmol/L (0.0-2.0); VENOUS BLOOD GAS PCO2 64 mmHg (40-60); VENOUS BLOOD PH 7.36 (7.32-7.43)
[2017-03-06 17:08] LABS: ARTERIAL BLOOD HGB O2 SAT 70.4 % (95.0-98.0); CARBOXYHEMOGLOBIN 1.9 % (0.5-1.5); DRAW SITE FA; HHB 26.8 % (0.0-5.0); METHEMOGLOBIN 0.9 % (0.0-3.0)
[2017-03-06] MEDS: Sodium Chloride 0.9% 1,000 ML IV SCH (19:53)
[2017-03-07] MEDS: Albuterol-Ipratrop 3 mg / 0.5 (3 ml) UD INH SCH ×3 (01:11→13:37)
[2017-03-07] MEDS: Levothyroxine 100 MCG TAB PO SCH (05:50)
[2017-03-07] MEDS: LIPASE/PROTEASE/AMYLASE 4,200 U ECC PO SCH ×4 (08:07→20:31)
[2017-03-07] MEDS: Sucralfate 1 gm/10 ml Oral Susp UD PO SCH ×3 (08:07→17:25)
--- NOTE | 2017-03-07 08:13 | CARDCATH ---
PROCEDURE NOTE PROCEDURE DATE: 03/06/2017 INDICATION: Ms. Ananda Martino is a 81-year-old female who [facility] with symptoms of pulmonary hypertension. She was scheduled to undergo outpatient catheterization for worsening of her heart rate with symptoms of intermittent episodes of chest pain. She was therefore brought to the [facility]. She was admitted to the emergency room with the above complaints with worsening lower extremity edema and shortness of breath accompanied with shortness of breath with retrosternal chest pains. PROCEDURE PERFORMED: Right and left heart catheterization via 6-Turkmen right femoral artery and 7-Turkmen right femoral venous access, left ventriculogram, Mynx closure device for hemostasis. TECHNIQUE OF PROCEDURE: After obtaining informed consent, the patient was brought to the cardiac cath suite in post-absorptive, non-sedated state. The patient was prepped and draped in the usual sterile fashion. Then, 2% lidocaine was used for infiltration of anesthesia. Using modified Seldinger technique, a 6-Turkmen sheath was introduced into the right femoral artery and 7-Turkmen sheath was introduced into the right femora vein. Subsequently, under fluoroscopic guidance, with the balloon inflated, the pulmonary capillary wedge catheter was serially advanced through the IVC into the RA, RV, PA and wedge positions. Hemodynamics and saturations were obtained. Right heart cath findings; RA pressures 14/14/12 with mean RA pressure of 12 mmHg. RV pressures were 56/7/7 with RVEDP of 11 mmHg. Pulmonary capillary wedge pressure is 13/18/12 with a mean pulmonary pressure of 12 mmHg. PA pressures were 55/31/41, mean PA pressure of 40 mmHg. Using the peak equation, cardiac outflow was calculated to be 7.56 liters per minute. Cardiac index was 4.07 liters per minute per square meter. IMPRESSSION: Normal filling pressures, mild pulmonary hypertension. Subsequently, attention was paid to the left coronary system. Selective angiogram of the left and right coronary systems were obtained with the JL4 and JR4 diagnostic catheter and LV gram was obtained in the LAYA view. CORONARY ANATOMY: Left main has moderate 40% stenosis. It gives off LAD and left circumflex coronary artery, nonobstructive coronary artery disease involving the LAD and the circumflex. RCA, a large-sized vessel gives of the right PDA with mild nonobstructive disease. IMPRESSION: Non obstructive coronary artery disease, mild; left main stenosis, normal ejection fraction. RECOMMENDATIONS: Continue aggressive medical management, risk factor modification, increase diuretics, add calcium-channel blockers. Rony Pendleton MD DT: 03/07/2017 3:24:31
--- NOTE | 2017-03-07 08:38 | CP.PCM.PN ---
Subjective - Date & Time of Evaluation Date of Evaluation: 03/07/17 Time of Evaluation: 08:35 - Subjective Subjective: Cardiology progress note for Dr. Helder Daniel DO PGY - 1 Pt s/e bedside, states she is feeling okay. She states that she does not need her oxygen at this time, and that her sob is improved. Pt denies cp. NO further complaints at this time. Objective - Vital Signs/Intake and Output Vital Signs (last 24 hours): Temp Pulse Resp BP Pulse Ox 98.2 F 104 H 20 107/68 100 03/07/17 07:20 03/07/17 07:20 03/07/17 07:20 03/07/17 07:20 03/07/17 07:20 Intake and Output: 03/07/17 03/07/17 06:59 18:59 Intake Total 1465 Balance 1465 - Medications Medications: Current Medications Albuterol/Ipratropium (Duoneb 3 Mg/0.5 Mg (3 Ml) Ud) 3 ml INH RQ6 [facility] Last Admin: 03/07/17 01:11 Dose: Not Given Aspirin (Ecotrin) 81 mg PO DAILY [facility] Last Admin: 03/06/17 10:21 Dose: Not Given Diltiazem HCl (Cardizem Cd) 240 mg PO DAILY [facility] Last Admin: 03/06/17 10:21 Dose: Not Given Docusate Sodium (Colace) 200 mg PO HS [facility] Last Admin: 03/06/17 22:36 Dose: 200 mg Enoxaparin Sodium (Lovenox) 40 mg SC DAILY [facility] Last Admin: 03/06/17 10:22 Dose: Not Given Furosemide (Lasix) 40 mg IVP DAILY [facility] Last Admin: 03/06/17 10:22 Dose: Not Given Guaifenesin (Mucinex La) 600 mg PO BID [facility] Last Admin: 03/06/17 20:13 Dose: 600 mg Home Med (Sildenafil [Revatio]) 20 mg PO TID [facility] Sodium Chloride (Sodium Chloride 0.9%) 1,000 mls @ 75 mls/hr IV .[id number] [facility] Last Admin: 03/06/17 19:53 Dose: 75 mls/hr Insulin Aspart (Novolog) 0 unit SC [facility] PRN Reason: Protocol Isosorbide Mononitrate (Imdur Er) 30 mg PO DAILY [facility] Last Admin: 03/06/17 10:21 Dose: Not Given Levothyroxine Sodium (Synthroid) 100 mcg PO DAILY@0630 [facility] Last Admin: 03/07/17 05:50 Dose: 100 mcg Montelukast Sodium (Singulair) 10 mg PO HS [facility] Last Admin: 03/06/17 22:41 Dose: 10 mg Dxfdj-0-Jhtl Ethyl Esters (Lovaza) 2 gm PO BID [facility] Last Admin: 03/06/17 20:13 Dose: 2 gm Pantoprazole Sodium (Protonix Ec Tab) 40 mg PO DAILY [facility] Last Admin: 03/06/17 10:22 Dose: Not Given Rivastigmine (Exelon 4.6 Mg/24 Hr Patch) 3 patch TD DAILY [facility] Last Admin: 03/06/17 10:21 Dose: Not Given Rosuvastatin Calcium (Crestor) 5 mg PO HS [facility] Last Admin: 03/06/17 22:37 Dose: 5 mg Fluticasone/Salmeterol (Advair Diskus 500/50) 1 puff INH RQ12 [facility] Last Admin: 03/06/17 20:25 Dose: 1 puff Sitagliptin Phosphate (Januvia) 50 mg PO DAILY [facility] Last Admin: 03/06/17 10:22 Dose: Not Given Sucralfate (Carafate Oral Susp) 1 gm PO ACTID [facility] Last Admin: 03/07/17 08:07 Dose: 1 gm - Labs Labs: 03/03/17 16:04 03/06/17 06:12 - Additional Findings Additional findings: Phys Exam: VS as below Const'l: a&o x 4, nad, morbidly obese, not currently using her oxygen Head/Neck: neck supple, no jvd, trachea midline, carotid midline, no cervical /head mass Eyes: tutu, nonicteric sclera, eom intact ENT: auditory acuity grossly intact, throat not congested, no nasal deformity Cardio: rrr, no m/r/g, no carotid bruit, nml s1, s2 Pulm: +diffuse rales anterior and posterior; no accessory muscle use, equal nml breath sounds bilaterally Abd: s/nt/nd, nbs x 4 q, no palpable masses Derm: no rashes, no ulcers, no lesions Extr: no edema, no cyanosis, no calf tenderness, no lesions, no varicosities Neuro: cn II-XII grossly intact, ue and le 5/5 muscle strength bilaterally, no los ue, le bilaterally and core Assessment and Plan - Assessment and Plan (Free Text) Assessment: A/P 81 F w/ Hx of CHF, COPD, Pulm HTN, and HLD presents with worsening sob and chest pressure. Tropes neg X 2 CHF Exacerbation - Underwent catheterization yesterday R and L heart cath via R Femoral A and R Femoral V access Left ventriculogram Mynx Closure device Impression: Non-obstructive CAD, mild; and L main stenosis with normal EF - Continue aggressive medical management - Increase diuretic treatment - Lasix 40 bid - Add Aldactone 25 bid - Add Dig .125 Thank you for this interesting consult Abhinav Daniel DO PGY - 1 d/w Dr. Pendleton.
[2017-03-07] MEDS: Fluticasone-Salmeterol 500-50mcg Diskus INH SCH ×2 (09:03→19:53)
[2017-03-07] MEDS: Enoxaparin 40 mg Syringe SC SCH (09:46)
[2017-03-07] MEDS: Pantoprazole 40 mg EC Tab PO SCH (09:47)
[2017-03-07] MEDS: guaiFENesin 600 mg ER Tab PO SCH ×3 (09:47→20:31)
[2017-03-07] MEDS: Omega-3-Acid Ethyl Esters 1 GM Cap PO SCH ×3 (09:47→20:31)
[2017-03-07] MEDS: diltiaZEM 240 mg/24 Hours CD Cap PO SCH (09:47)
[2017-03-07] MEDS: Sodium Chloride 0.9% 1,000 ML IV SCH ×2 (11:22→22:38)
--- NOTE | 2017-03-07 11:56 | CP.PCM.PN ---
Subjective - Date & Time of Evaluation Date of Evaluation: 03/07/17 Time of Evaluation: 11:53 - Subjective Subjective: pt had c cath yesterday recomend cont on medication feels beter Objective - Vital Signs/Intake and Output Vital Signs (last 24 hours): Temp Pulse Resp BP Pulse Ox 98.2 F 104 H 20 113/80 100 03/07/17 07:20 03/07/17 07:20 03/07/17 07:20 03/07/17 09:47 03/07/17 07:20 Intake and Output: 03/07/17 03/07/17 06:59 18:59 Intake Total 1465 Balance 1465 - Medications Medications: Current Medications Albuterol/Ipratropium (Duoneb 3 Mg/0.5 Mg (3 Ml) Ud) 3 ml INH RQ6 [facility] Last Admin: 03/07/17 09:03 Dose: 3 ml Aspirin (Ecotrin) 81 mg PO DAILY [facility] Last Admin: 03/07/17 09:47 Dose: 81 mg Diltiazem HCl (Cardizem Cd) 240 mg PO DAILY [facility] Last Admin: 03/07/17 09:47 Dose: 240 mg Docusate Sodium (Colace) 200 mg PO HS [facility] Last Admin: 03/06/17 22:36 Dose: 200 mg Enoxaparin Sodium (Lovenox) 40 mg SC DAILY [facility] Last Admin: 03/07/17 09:46 Dose: 40 mg Furosemide (Lasix) 40 mg IVP DAILY [facility] Last Admin: 03/07/17 09:47 Dose: 40 mg Guaifenesin (Mucinex La) 600 mg PO BID [facility] Last Admin: 03/07/17 09:47 Dose: 600 mg Home Med (Sildenafil [Revatio]) 20 mg PO TID [facility] Sodium Chloride (Sodium Chloride 0.9%) 1,000 mls @ 75 mls/hr IV .[id number] [facility] Last Admin: 03/07/17 11:22 Dose: 75 mls/hr Insulin Aspart (Novolog) 0 unit SC ACHS [facility] PRN Reason: Protocol Isosorbide Mononitrate (Imdur Er) 30 mg PO DAILY [facility] Last Admin: 03/07/17 09:51 Dose: 30 mg Levothyroxine Sodium (Synthroid) 100 mcg PO DAILY@0630 [facility] Last Admin: 03/07/17 05:50 Dose: 100 mcg Montelukast Sodium (Singulair) 10 mg PO HS [facility] Last Admin: 03/06/17 22:41 Dose: 10 mg Aenhz-0-Zked Ethyl Esters (Lovaza) 2 gm PO BID [facility] Last Admin: 03/07/17 09:47 Dose: 2 gm Pantoprazole Sodium (Protonix Ec Tab) 40 mg PO DAILY [facility] Last Admin: 03/07/17 09:47 Dose: 40 mg Rivastigmine (Exelon 4.6 Mg/24 Hr Patch) 3 patch TD DAILY [facility] Last Admin: 03/07/17 09:46 Dose: 3 patch Rosuvastatin Calcium (Crestor) 5 mg PO HS [facility] Last Admin: 03/06/17 22:37 Dose: 5 mg Fluticasone/Salmeterol (Advair Diskus 500/50) 1 puff INH RQ12 [facility] Last Admin: 03/07/17 09:03 Dose: 1 puff Sitagliptin Phosphate (Januvia) 50 mg PO DAILY [facility] Last Admin: 03/07/17 09:47 Dose: 50 mg Sucralfate (Carafate Oral Susp) 1 gm PO ACTID [facility] Last Admin: 03/07/17 08:07 Dose: 1 gm - Labs Labs: 03/03/17 16:04 03/06/17 06:12 - Constitutional Appears: Non-toxic - Head Exam Head Exam: NORMAL INSPECTION - Eye Exam Eye Exam: Normal appearance Pupil Exam: NORMAL ACCOMODATION - ENT Exam ENT Exam: Normal Exam - Neck Exam Neck Exam: Full ROM - Respiratory Exam Respiratory Exam: Decreased Breath Sounds - Cardiovascular Exam Cardiovascular Exam: REGULAR RHYTHM - GI/Abdominal Exam GI & Abdominal Exam: Normal Bowel Sounds - Extremities Exam Extremities Exam: Normal Inspection Additional comments: no oeadeama now - Back Exam Back Exam: NORMAL INSPECTION - Neurological Exam Neurological Exam: Normal Gait, Oriented x3 - Psychiatric Exam Psychiatric exam: Normal Affect - Skin Skin Exam: Normal Color Assessment and Plan - Assessment and Plan (Free Text) Assessment: chf p ht htn dm arthritis Plan: d/c home with pt f/u in my office next weeke
--- NOTE | 2017-03-07 12:31 | CARD ---
APPROVED REPORT EKG Measurement Heart [id number] <Conclusion> Atrial fibrillation with rapid ventricular response with premature ventricular or aberrantly conducted complexes Left axis deviation Abnormal ECG
[2017-03-07] MEDS ORDERED: Albuterol-Ipratrop 3 mg / 0.5 (3 ml) UD INH STA (18:30)
[2017-03-08] MEDS ORDERED: Digoxin 500 mcg/2ml (0.5 mg/2ml) Inj IVP ONE (00:43)
[2017-03-08] MEDS: Albuterol-Ipratrop 3 mg / 0.5 (3 ml) UD INH SCH ×4 (01:48→19:37)
[2017-03-08] MEDS: Sodium Chloride 0.9% 1,000 ML IV SCH (05:00)
[2017-03-08] MEDS: Sucralfate 1 gm/10 ml Oral Susp UD PO SCH ×3 (06:34→18:16)
[2017-03-08] MEDS: Levothyroxine 100 MCG TAB PO SCH (06:34)
[2017-03-08] MEDS: LIPASE/PROTEASE/AMYLASE 4,200 U ECC PO SCH ×3 (08:30→18:17)
[2017-03-08] MEDS: Fluticasone-Salmeterol 500-50mcg Diskus INH SCH ×2 (09:10→19:37)
--- NOTE | 2017-03-08 09:30 | CP.PCM.PN ---
Subjective - Date & Time of Evaluation Date of Evaluation: 03/08/17 Time of Evaluation: 09:27 - Subjective Subjective: Cardiology progress note for Dr. Helder Daniel DO PGY - 1 Pt s/e bedside, states she is feeling okay. She states that she does not need her oxygen at this time, and that her sob is improved. Pt denies cp. Pt does have a question about her low bp, states that she thinks this is why she is always tired. NO further complaints at this time. Objective - Vital Signs/Intake and Output Vital Signs (last 24 hours): Temp Pulse Resp BP Pulse Ox 98.4 F 87 20 105/69 99 03/08/17 08:47 03/08/17 08:47 03/08/17 08:47 03/08/17 08:47 03/08/17 08:47 Intake and Output: 03/08/17 03/08/17 06:59 18:59 Intake Total 600 Balance 600 - Medications Medications: Current Medications Albuterol/Ipratropium (Duoneb 3 Mg/0.5 Mg (3 Ml) Ud) 3 ml INH RQ6 [facility] Last Admin: 03/08/17 07:19 Dose: 3 ml Aspirin (Ecotrin) 81 mg PO DAILY [facility] Last Admin: 03/07/17 09:47 Dose: 81 mg Digoxin (Lanoxin) 0.125 mg PO DAILY@1800 [facility] Diltiazem HCl (Cardizem Cd) 240 mg PO DAILY [facility] Last Admin: 03/07/17 09:47 Dose: 240 mg Docusate Sodium (Colace) 200 mg PO HS [facility] Last Admin: 03/07/17 21:17 Dose: 200 mg Enoxaparin Sodium (Lovenox) 40 mg SC DAILY [facility] Last Admin: 03/07/17 09:46 Dose: 40 mg Furosemide (Lasix) 40 mg IVP BID [facility] Guaifenesin (Mucinex La) 600 mg PO BID [facility] Last Admin: 03/07/17 20:31 Dose: 600 mg Home Med (Sildenafil [Revatio]) 20 mg PO TID [facility] Sodium Chloride (Sodium Chloride 0.9%) 1,000 mls @ 75 mls/hr IV .[id number] [facility] Last Admin: 03/08/17 05:00 Dose: 75 mls/hr Insulin Aspart (Novolog) 0 unit SC ACHS [facility] PRN Reason: Protocol Isosorbide Mononitrate (Imdur Er) 30 mg PO DAILY [facility] Last Admin: 03/07/17 09:51 Dose: 30 mg Levothyroxine Sodium (Synthroid) 100 mcg PO DAILY@0630 [facility] Last Admin: 03/08/17 06:34 Dose: 100 mcg Montelukast Sodium (Singulair) 10 mg PO HS [facility] Last Admin: 03/07/17 21:17 Dose: 10 mg Socmx-0-Quot Ethyl Esters (Lovaza) 2 gm PO BID [facility] Last Admin: 03/07/17 20:31 Dose: 2 gm Pantoprazole Sodium (Protonix Ec Tab) 40 mg PO DAILY [facility] Last Admin: 03/07/17 09:47 Dose: 40 mg Rivastigmine (Exelon 4.6 Mg/24 Hr Patch) 3 patch TD DAILY [facility] Last Admin: 03/07/17 09:46 Dose: 3 patch Rosuvastatin Calcium (Crestor) 5 mg PO HS [facility] Last Admin: 03/07/17 21:17 Dose: 5 mg Fluticasone/Salmeterol (Advair Diskus 500/50) 1 puff INH RQ12 [facility] Last Admin: 03/07/17 19:53 Dose: 1 puff Sitagliptin Phosphate (Januvia) 50 mg PO DAILY [facility] Last Admin: 03/07/17 09:47 Dose: 50 mg Spironolactone (Aldactone) 25 mg PO BID [facility] Sucralfate (Carafate Oral Susp) 1 gm PO ACTID [facility] Last Admin: 03/08/17 06:34 Dose: 1 gm - Labs Labs: 03/03/17 16:04 03/06/17 06:12 - Additional Findings Additional findings: Phys Exam: VS as below Const'l: a&o x 4, nad, morbidly obese, not currently using her oxygen Head/Neck: neck supple, no jvd, trachea midline, carotid midline, no cervical /head mass Eyes: tutu, nonicteric sclera, eom intact ENT: auditory acuity grossly intact, throat not congested, no nasal deformity Cardio: rrr, no m/r/g, no carotid bruit, nml s1, s2 Pulm: +diffuse rales anterior and posterior; no accessory muscle use, equal nml breath sounds bilaterally Abd: s/nt/nd, nbs x 4 q, no palpable masses Derm: no rashes, no ulcers, no lesions Extr: no edema, no cyanosis, no calf tenderness, no lesions, no varicosities Neuro: cn II-XII grossly intact, ue and le 5/5 muscle strength bilaterally, no los ue, le bilaterally and core Assessment and Plan - Assessment and Plan (Free Text) Assessment: A/P 81 F w/ Hx of CHF, COPD, Pulm HTN, and HLD presents with worsening sob and chest pressure. Tropes neg X 3. s/p Cath two days ago CHF Exacerbation - Underwent catheterization two days ago R and L heart cath via R Femoral A and R Femoral V access Left ventriculogram Mynx Closure device Impression: Non-obstructive CAD, mild; and L main stenosis with normal EF - Change Lasix 40 bid to Lasix 5 mg IV drip, non-titrated - Add sodium restriction to diet - 2 mg - Remove Januvia from medications at this time Januvia has been known to cause water retention - Continue Aldactone 25 bid, Dig .125 Thank you for this interesting consult Abhinav Daniel DO PGY - 1 d/w Dr. Pendleton.
--- NOTE | 2017-03-08 10:09 | CP.PCM.PN ---
Subjective - Date & Time of Evaluation Date of Evaluation: 03/08/17 Time of Evaluation: 10:05 - Subjective Subjective: weeke sob ocasionaly cough bp low severe pain r wrest canot move it tender Objective - Vital Signs/Intake and Output Vital Signs (last 24 hours): Temp Pulse Resp BP Pulse Ox 98.4 F 87 20 105/69 99 03/08/17 08:47 03/08/17 08:47 03/08/17 08:47 03/08/17 08:47 03/08/17 08:47 Intake and Output: 03/08/17 03/08/17 06:59 18:59 Intake Total 600 Balance 600 - Medications Medications: Current Medications Albuterol/Ipratropium (Duoneb 3 Mg/0.5 Mg (3 Ml) Ud) 3 ml INH RQ6 [facility] Last Admin: 03/08/17 07:19 Dose: 3 ml Aspirin (Ecotrin) 81 mg PO DAILY [facility] Last Admin: 03/07/17 09:47 Dose: 81 mg Digoxin (Lanoxin) 0.125 mg PO DAILY@1800 [facility] Diltiazem HCl (Cardizem Cd) 240 mg PO DAILY [facility] Last Admin: 03/07/17 09:47 Dose: 240 mg Docusate Sodium (Colace) 200 mg PO HS [facility] Last Admin: 03/07/17 21:17 Dose: 200 mg Enoxaparin Sodium (Lovenox) 40 mg SC DAILY [facility] Last Admin: 03/07/17 09:46 Dose: 40 mg Furosemide (Lasix) 40 mg IVP BID [facility] Guaifenesin (Mucinex La) 600 mg PO BID [facility] Last Admin: 03/07/17 20:31 Dose: 600 mg Home Med (Sildenafil [Revatio]) 20 mg PO TID [facility] Sodium Chloride (Sodium Chloride 0.9%) 1,000 mls @ 75 mls/hr IV .[id number] [facility] Last Admin: 03/08/17 05:00 Dose: 75 mls/hr Insulin Aspart (Novolog) 0 unit SC ACHS [facility] PRN Reason: Protocol Levothyroxine Sodium (Synthroid) 100 mcg PO DAILY@0630 [facility] Last Admin: 03/08/17 06:34 Dose: 100 mcg Montelukast Sodium (Singulair) 10 mg PO HS [facility] Last Admin: 03/07/17 21:17 Dose: 10 mg Qunbq-5-Mmzq Ethyl Esters (Lovaza) 2 gm PO BID [facility] Last Admin: 03/07/17 20:31 Dose: 2 gm Pantoprazole Sodium (Protonix Ec Tab) 40 mg PO DAILY [facility] Last Admin: 03/07/17 09:47 Dose: 40 mg Rivastigmine (Exelon 4.6 Mg/24 Hr Patch) 3 patch TD DAILY [facility] Last Admin: 03/07/17 09:46 Dose: 3 patch Rosuvastatin Calcium (Crestor) 5 mg PO HS [facility] Last Admin: 03/07/17 21:17 Dose: 5 mg Fluticasone/Salmeterol (Advair Diskus 500/50) 1 puff INH RQ12 [facility] Last Admin: 03/07/17 19:53 Dose: 1 puff Sitagliptin Phosphate (Januvia) 50 mg PO DAILY [facility] Last Admin: 03/07/17 09:47 Dose: 50 mg Spironolactone (Aldactone) 25 mg PO BID [facility] Sucralfate (Carafate Oral Susp) 1 gm PO ACTID [facility] Last Admin: 03/08/17 06:34 Dose: 1 gm - Labs Labs: 03/03/17 16:04 03/06/17 06:12 - Constitutional Appears: Non-toxic - Head Exam Head Exam: NORMAL INSPECTION - Eye Exam Additional comments: jeanie protheis - ENT Exam ENT Exam: Mucous Membranes Moist - Neck Exam Neck Exam: Full ROM - Respiratory Exam Respiratory Exam: Decreased Breath Sounds - Cardiovascular Exam Cardiovascular Exam: REGULAR RHYTHM - GI/Abdominal Exam GI & Abdominal Exam: Normal Bowel Sounds - Back Exam Back Exam: NORMAL INSPECTION - Neurological Exam Neurological Exam: Abnormal Gait, Alert, Awake, Oriented x3 - Psychiatric Exam Psychiatric exam: Normal Affect - Skin Skin Exam: Normal Color Assessment and Plan - Assessment and Plan (Free Text) Assessment: ac wrest r pain chf diastolic ac exacerbation copd pulmonary htn arthritis hypotension Plan: as per orders
[2017-03-08] MEDS: Enoxaparin 40 mg Syringe SC SCH (11:00)
[2017-03-08] MEDS: guaiFENesin 600 mg ER Tab PO SCH ×2 (11:00→18:17)
[2017-03-08] MEDS: Pantoprazole 40 mg EC Tab PO SCH (11:00)
[2017-03-08] MEDS: Omega-3-Acid Ethyl Esters 1 GM Cap PO SCH ×2 (11:00→18:17)
[2017-03-08] MEDS: diltiaZEM 240 mg/24 Hours CD Cap PO SCH (11:01)
[2017-03-08 12:18] LABS: BASO % 0.4 % (0.0-2.0); EOS # 0.1 K/uL (0.0-0.7); EOS % 1.5 % (0.0-4.0); HEMATOCRIT 36.2 % (34.0-47.0); LYMPH # 1.6 K/uL (1.0-4.3); LYMPH % 28.9 % (20.0-40.0); MEAN CELL VOLUME 90.6 fL (81.0-99.0); MEAN CORPUSCULAR HEMOGLOBIN 29.7 pg (27.0-31.0); MEAN CORPUSCULAR HGB CONC 32.7 g/dL (33.0-37.0); MEAN PLATELET VOLUME 9.3 fL (7.2-11.7); MONO # 0.6 K/uL (0.0-0.8); MONO % 10.9 % (0.0-10.0); NRBC % 0.1 % (0.0-2.0); RED CELL DISTRIBUTION WIDTH 14.8 % (11.5-14.5); WHITE BLOOD COUNT 5.6 K/uL (4.8-10.8)
[2017-03-08 12:26] LABS: BLOOD UREA NITROGEN 17 mg/dL (7-17); CARBON DIOXIDE 31 mmol/L (22-30); CHLORIDE 97 mmol/L (98-107); GFR AFRICAN-AMERICAN > 60; GLUCOSE,RANDOM 102 mg/dL (65-105); POTASSIUM 3.9 mmol/L (3.6-5.2); SODIUM 133 mmol/L (132-148)
[2017-03-08] MEDS: Furosemide 100 MG in Dextrose 5% In Water 90 ML IV SCH (13:15)
--- NOTE | 2017-03-08 13:17 | RAD ---
Indication: Severe wrist pain Right wrist radiographs Comparison: None available Findings: Examination limited by habitus. Diffuse osseous demineralization limits evaluation for acute fracture lines. No acute displaced fracture appreciated. Rotated lateral view. No evidence of retained radiopaque foreign body. IV tubing evident. Impression: Osseous demineralization. Degenerative changes. No acute displaced fracture identified.
[2017-03-08] MEDS: Digoxin 125 mcg (0.125 mg) Tab PO SCH (18:17)
[2017-03-09] MEDS: Albuterol-Ipratrop 3 mg / 0.5 (3 ml) UD INH SCH ×4 (01:20→19:22)
[2017-03-09] MEDS: Furosemide 100 MG in Dextrose 5% In Water 90 ML IV SCH (05:45)
[2017-03-09] MEDS: Sucralfate 1 gm/10 ml Oral Susp UD PO SCH ×4 (06:30→17:47)
--- NOTE | 2017-03-09 08:13 | CP.PCM.PN ---
Subjective - Date & Time of Evaluation Date of Evaluation: 03/09/17 Time of Evaluation: 08:10 - Subjective Subjective: Cardiology progress note for Dr. Helder Daniel DO PGY - 1 Pt s/e bedside, states she is feeling okay. She states that she does not need her oxygen at this time, and that her sob is improved. Pt denies cp. Pt again asked about her low bp, states that she thinks this is why she is always tired. NO further complaints at this time. Objective - Vital Signs/Intake and Output Vital Signs (last 24 hours): Temp Pulse Resp BP Pulse Ox 98 F 76 20 115/72 98 03/09/17 03:47 03/09/17 03:47 03/09/17 03:47 03/09/17 05:45 03/09/17 03:47 Intake and Output: 03/09/17 03/09/17 06:59 18:59 Intake Total 50 Balance 50 - Medications Medications: Current Medications Albuterol/Ipratropium (Duoneb 3 Mg/0.5 Mg (3 Ml) Ud) 3 ml INH RQ6 [facility] Last Admin: 03/09/17 07:28 Dose: Not Given Aspirin (Ecotrin) 81 mg PO DAILY [facility] Last Admin: 03/08/17 11:00 Dose: 81 mg Digoxin (Lanoxin) 0.125 mg PO DAILY@1800 [facility] Last Admin: 03/08/17 18:17 Dose: 0.125 mg Diltiazem HCl (Cardizem Cd) 240 mg PO DAILY [facility] Last Admin: 03/08/17 11:01 Dose: Not Given Docusate Sodium (Colace) 200 mg PO HS [facility] Last Admin: 03/08/17 21:52 Dose: 200 mg Enoxaparin Sodium (Lovenox) 40 mg SC DAILY [facility] Last Admin: 03/08/17 11:00 Dose: 40 mg Guaifenesin (Mucinex La) 600 mg PO BID [facility] Last Admin: 03/08/17 18:17 Dose: 600 mg Home Med (Sildenafil [Revatio]) 20 mg PO TID [facility] Furosemide 100 mg/ Dextrose 100 mls @ 5 mls/hr IV .Q20H [facility] PRN Reason: 5 MG/HR Last Admin: 03/09/17 05:45 Dose: 5 mls/hr Insulin Aspart (Novolog) 0 unit SC ACHS [facility] PRN Reason: Protocol Levothyroxine Sodium (Synthroid) 100 mcg PO DAILY@0630 [facility] Last Admin: 03/08/17 06:34 Dose: 100 mcg Montelukast Sodium (Singulair) 10 mg PO HS [facility] Last Admin: 03/08/17 21:53 Dose: 10 mg Trcqa-8-Gxdi Ethyl Esters (Lovaza) 2 gm PO BID [facility] Last Admin: 03/08/17 18:17 Dose: 2 gm Pantoprazole Sodium (Protonix Ec Tab) 40 mg PO DAILY [facility] Last Admin: 03/08/17 11:00 Dose: 40 mg Rivastigmine (Exelon 4.6 Mg/24 Hr Patch) 3 patch TD DAILY [facility] Last Admin: 03/08/17 11:00 Dose: 3 patch Rosuvastatin Calcium (Crestor) 5 mg PO HS [facility] Last Admin: 03/08/17 21:53 Dose: 5 mg Fluticasone/Salmeterol (Advair Diskus 500/50) 1 puff INH RQ12 [facility] Last Admin: 03/08/17 19:37 Dose: 1 puff Spironolactone (Aldactone) 25 mg PO BID [facility] Last Admin: 03/08/17 18:18 Dose: 25 mg Sucralfate (Carafate Oral Susp) 1 gm PO ACTID [facility] Last Admin: 03/08/17 18:16 Dose: 1 gm - Labs Labs: 03/08/17 12:00 03/08/17 12:00 - Additional Findings Additional findings: Phys Exam: VS as below Const'l: a&o x 4, nad, morbidly obese, not currently using her oxygen Head/Neck: neck supple, no jvd, trachea midline, carotid midline, no cervical /head mass Eyes: tutu, nonicteric sclera, eom intact ENT: auditory acuity grossly intact, throat not congested, no nasal deformity Cardio: rrr, no m/r/g, no carotid bruit, nml s1, s2 Pulm: +diffuse rales anterior and posterior - much improved; no accessory muscle use, equal nml breath sounds bilaterally Abd: s/nt/nd, nbs x 4 q, no palpable masses Derm: no rashes, no ulcers, no lesions Extr: +2+ pitting edema; no cyanosis, no calf tenderness, no lesions, no varicosities Neuro: cn II-XII grossly intact, ue and le 5/5 muscle strength bilaterally, no los ue, le bilaterally and core Assessment and Plan - Assessment and Plan (Free Text) Assessment: A/P 81 F w/ Hx of CHF, COPD, Pulm HTN, and HLD presents with worsening sob and chest pressure. Tropes neg X 3. s/p Cath two days ago CHF Exacerbation - Underwent catheterization two days ago R and L heart cath via R Femoral A and R Femoral V access Left ventriculogram Mynx Closure device Impression: Non-obstructive CAD, mild; and L main stenosis with normal EF - Change Lasix 40 bid to Lasix 5 mg IV drip, non-titrated - Add sodium restriction to diet - 2 mg - Continue Aldactone 25 bid, Dig .125 - Remove Januvia from medications at this time Januvia has been known to cause water retention - Remove fluids Thank you for this interesting consult Abhinav Daniel DO PGY - 1 d/w Dr. Pendleton.
[2017-03-09] MEDS: Fluticasone-Salmeterol 500-50mcg Diskus INH SCH ×2 (08:30→19:22)
[2017-03-09] MEDS: LIPASE/PROTEASE/AMYLASE 4,200 U ECC PO SCH ×3 (08:35→18:12)
[2017-03-09 09:07] LABS: BLOOD UREA NITROGEN 20 mg/dL (7-17); CALCIUM 8.4 mg/dl (8.6-10.4); CARBON DIOXIDE 38 mmol/L (22-30); CHLORIDE 90 mmol/L (98-107); GFR AFRICAN-AMERICAN > 60; GLUCOSE,RANDOM 89 mg/dL (65-105); POTASSIUM 3.2 mmol/L (3.6-5.2); SODIUM 134 mmol/L (132-148)
[2017-03-09] MEDS: Omega-3-Acid Ethyl Esters 1 GM Cap PO SCH ×2 (10:04→18:10)
[2017-03-09] MEDS: Pantoprazole 40 mg EC Tab PO SCH (10:04)
[2017-03-09] MEDS: guaiFENesin 600 mg ER Tab PO SCH ×2 (10:04→18:11)
[2017-03-09] MEDS: diltiaZEM 240 mg/24 Hours CD Cap PO SCH (10:05)
[2017-03-09] MEDS: Enoxaparin 40 mg Syringe SC SCH (10:13)
[2017-03-09] MEDS ORDERED: Potassium Chloride 20 mEq ER Tab PO ONE (14:00)
[2017-03-09] MEDS ORDERED: Furosemide 100 MG in Sodium Chloride 0.9% 90 ML IV SCH (18:00)
[2017-03-09] MEDS: Digoxin 125 mcg (0.125 mg) Tab PO SCH (18:12)
[2017-03-09] MEDS: Metoprolol Succinate 25 mg XL Tab PO SCH (18:15)
[2017-03-09 18:16] VITALS: PULSE 66
--- NOTE | 2017-03-09 19:03 | CP.PCM.PN ---
Subjective - Date & Time of Evaluation Date of Evaluation: 03/09/17 Time of Evaluation: 19:01 - Subjective Subjective: less sob Objective - Vital Signs/Intake and Output Vital Signs (last 24 hours): Temp Pulse Resp BP Pulse Ox 98.1 F 71 20 114/79 100 03/09/17 15:18 03/09/17 16:23 03/09/17 15:18 03/09/17 18:11 03/09/17 15:18 Intake and Output: 03/09/17 03/10/17 18:59 06:59 Intake Total 440 Balance 440 - Medications Medications: Current Medications Albuterol/Ipratropium (Duoneb 3 Mg/0.5 Mg (3 Ml) Ud) 3 ml INH RQ6 [facility] Last Admin: 03/09/17 13:26 Dose: 3 ml Aspirin (Ecotrin) 81 mg PO DAILY [facility] Last Admin: 03/09/17 10:04 Dose: 81 mg Digoxin (Lanoxin) 0.125 mg PO DAILY@1800 [facility] Last Admin: 03/09/17 18:12 Dose: 0.125 mg Diltiazem HCl (Cardizem Cd) 240 mg PO DAILY [facility] Last Admin: 03/09/17 10:05 Dose: 240 mg Docusate Sodium (Colace) 200 mg PO HS [facility] Last Admin: 03/08/17 21:52 Dose: 200 mg Enoxaparin Sodium (Lovenox) 40 mg SC DAILY [facility] Last Admin: 03/09/17 10:13 Dose: 40 mg Furosemide (Lasix) 60 mg PO BID [facility] Last Admin: 03/09/17 18:11 Dose: 60 mg Guaifenesin (Mucinex La) 600 mg PO BID [facility] Last Admin: 03/09/17 18:11 Dose: 600 mg Home Med (Sildenafil [Revatio]) 20 mg PO TID [facility] Insulin Aspart (Novolog) 0 unit SC [facility] PRN Reason: Protocol Levothyroxine Sodium (Synthroid) 100 mcg PO DAILY@0630 [facility] Last Admin: 03/08/17 06:34 Dose: 100 mcg Metoprolol Succinate (Toprol Xl) 25 mg PO DAILY [facility] Last Admin: 03/09/17 18:15 Dose: 25 mg Montelukast Sodium (Singulair) 10 mg PO HS [facility] Last Admin: 03/08/17 21:53 Dose: 10 mg Gdzlg-8-Ohqg Ethyl Esters (Lovaza) 2 gm PO BID [facility] Last Admin: 03/09/17 18:10 Dose: 2 gm Pantoprazole Sodium (Protonix Ec Tab) 40 mg PO DAILY [facility] Last Admin: 03/09/17 10:04 Dose: 40 mg Rivastigmine (Exelon 4.6 Mg/24 Hr Patch) 3 patch TD DAILY [facility] Last Admin: 03/09/17 10:05 Dose: 3 patch Rosuvastatin Calcium (Crestor) 5 mg PO HS [facility] Last Admin: 03/08/17 21:53 Dose: 5 mg Fluticasone/Salmeterol (Advair Diskus 500/50) 1 puff INH RQ12 [facility] Last Admin: 03/09/17 08:30 Dose: Not Given Spironolactone (Aldactone) 25 mg PO BID [facility] Last Admin: 03/09/17 18:10 Dose: 25 mg Sucralfate (Carafate Oral Susp) 1 gm PO ACTID [facility] Last Admin: 03/09/17 17:47 Dose: 1 gm - Labs Labs: 03/08/17 12:00 03/09/17 08:38 - Constitutional Appears: Non-toxic - Head Exam Head Exam: NORMAL INSPECTION - Eye Exam Eye Exam: Normal appearance Pupil Exam: NORMAL ACCOMODATION - ENT Exam ENT Exam: Mucous Membranes Moist - Neck Exam Neck Exam: Full ROM - Respiratory Exam Respiratory Exam: Decreased Breath Sounds - Cardiovascular Exam Cardiovascular Exam: REGULAR RHYTHM - GI/Abdominal Exam GI & Abdominal Exam: Normal Bowel Sounds - Rectal Exam Rectal Exam: NORMAL INSPECTION - Extremities Exam Extremities Exam: Normal Inspection - Back Exam Back Exam: NORMAL INSPECTION - Neurological Exam Neurological Exam: Normal Gait, Oriented x3 - Psychiatric Exam Psychiatric exam: Normal Affect - Skin Skin Exam: Normal Color Assessment and Plan - Assessment and Plan (Free Text) Assessment: ac chf copd arthriris pulmonary htn dm Plan: cont as per orders
[2017-03-09] MEDS ORDERED: guaiFENesin DM 100 mg-10 mg/5 ml UD PO PRN (21:36)
[2017-03-10 01:05] VITALS: O2SAT 97
[2017-03-10] MEDS: Albuterol-Ipratrop 3 mg / 0.5 (3 ml) UD INH SCH ×3 (01:15→13:23)
--- NOTE | 2017-03-10 02:47 | CP.PCM.PN ---
Subjective - Date & Time of Evaluation Date of Evaluation: 03/10/17 Time of Evaluation: 07:15 - Subjective Subjective: Cardiology progress note for Dr. Helder Daniel DO PGY - 1 Pt s/e bedside, states she is feeling okay. She states that she does not need her oxygen at this time, and that her sob is improved. Pt denies cp. No further complaints at this time. Objective - Vital Signs/Intake and Output Vital Signs (last 24 hours): Temp Pulse Resp BP Pulse Ox 98.1 F 78 20 101/62 97 03/09/17 23:45 03/09/17 23:45 03/09/17 23:45 03/09/17 23:45 03/09/17 23:45 Intake and Output: 03/09/17 03/10/17 18:59 06:59 Intake Total 440 Balance 440 - Medications Medications: Current Medications Albuterol/Ipratropium (Duoneb 3 Mg/0.5 Mg (3 Ml) Ud) 3 ml INH RQ6 [facility] Last Admin: 03/10/17 01:15 Dose: Not Given Aspirin (Ecotrin) 81 mg PO DAILY [facility] Last Admin: 03/09/17 10:04 Dose: 81 mg Digoxin (Lanoxin) 0.125 mg PO DAILY@1800 [facility] Last Admin: 03/09/17 18:12 Dose: 0.125 mg Diltiazem HCl (Cardizem Cd) 240 mg PO DAILY [facility] Last Admin: 03/09/17 10:05 Dose: 240 mg Docusate Sodium (Colace) 200 mg PO HS [facility] Last Admin: 03/09/17 21:29 Dose: 200 mg Enoxaparin Sodium (Lovenox) 40 mg SC DAILY [facility] Last Admin: 03/09/17 10:13 Dose: 40 mg Furosemide (Lasix) 60 mg PO BID [facility] Last Admin: 03/09/17 18:11 Dose: 60 mg Guaifenesin (Mucinex La) 600 mg PO BID [facility] Last Admin: 03/09/17 18:11 Dose: 600 mg Guaifenesin/Dextromethorphan (Robitussin Dm) 5 ml PO Q6 PRN PRN Reason: Cough Last Admin: 03/09/17 21:58 Dose: 5 ml Home Med (Sildenafil [Revatio]) 20 mg PO TID [facility] Insulin Aspart (Novolog) 0 unit SC ACHS [facility] PRN Reason: Protocol Levothyroxine Sodium (Synthroid) 100 mcg PO DAILY@0630 [facility] Last Admin: 03/08/17 06:34 Dose: 100 mcg Metoprolol Succinate (Toprol Xl) 25 mg PO DAILY [facility] Last Admin: 03/09/17 18:15 Dose: 25 mg Montelukast Sodium (Singulair) 10 mg PO HS [facility] Last Admin: 03/09/17 21:29 Dose: 10 mg Bvrmc-2-Mwpv Ethyl Esters (Lovaza) 2 gm PO BID [facility] Last Admin: 03/09/17 18:10 Dose: 2 gm Pantoprazole Sodium (Protonix Ec Tab) 40 mg PO DAILY [facility] Last Admin: 03/09/17 10:04 Dose: 40 mg Rivastigmine (Exelon 4.6 Mg/24 Hr Patch) 3 patch TD DAILY [facility] Last Admin: 03/09/17 10:05 Dose: 3 patch Rosuvastatin Calcium (Crestor) 5 mg PO HS [facility] Last Admin: 03/09/17 21:29 Dose: 5 mg Fluticasone/Salmeterol (Advair Diskus 500/50) 1 puff INH RQ12 [facility] Last Admin: 03/09/17 19:22 Dose: 1 puff Spironolactone (Aldactone) 25 mg PO BID [facility] Last Admin: 03/09/17 18:10 Dose: 25 mg Sucralfate (Carafate Oral Susp) 1 gm PO ACTID [facility] Last Admin: 03/09/17 17:47 Dose: 1 gm Zolpidem Tartrate (Ambien) 5 mg PO HS PRN PRN Reason: Insomnia Last Admin: 03/09/17 21:58 Dose: 5 mg - Labs Labs: 03/08/17 12:00 03/09/17 08:38 - Additional Findings Additional findings: Phys Exam: VS as below Const'l: a&o x 4, nad, morbidly obese, not currently using her oxygen Head/Neck: neck supple, no jvd, trachea midline, carotid midline, no cervical /head mass Eyes: tutu, nonicteric sclera, eom intact ENT: auditory acuity grossly intact, throat not congested, no nasal deformity Cardio: rrr, no m/r/g, no carotid bruit, nml s1, s2 Pulm: +diffuse rales anterior and posterior - much improved; no accessory muscle use, equal nml breath sounds bilaterally Abd: s/nt/nd, nbs x 4 q, no palpable masses Derm: no rashes, no ulcers, no lesions Extr: +2+ pitting edema; no cyanosis, no calf tenderness, no lesions, no varicosities Neuro: cn II-XII grossly intact, ue and le 5/5 muscle strength bilaterally, no los ue, le bilaterally and core Assessment and Plan - Assessment and Plan (Free Text) Assessment: A/P 81 F w/ Hx of CHF, COPD, Pulm HTN, and HLD presents with worsening sob and chest pressure. Tropes neg X 3. s/p Cath POD #3 CHF Exacerbation - Underwent catheterization three days ago R and L heart cath via R Femoral A and R Femoral V access Left ventriculogram Mynx Closure device Impression: Non-obstructive CAD, mild; and L main stenosis with normal EF - Change Lasix 40 bid to Lasix 5 mg IV drip, non-titrated - Add sodium restriction to diet - 2 mg - Continue Aldactone 25 bid, Dig .125 - Remove Januvia from medications at this time Januvia has been known to cause water retention - Remove fluids Pulm HTN - Reduce preload with GDMT - Follow up with Dr. Pendleton o/p HLD - Continue GDMT A-Fib - Continue rate control and anti-coagulation (dig and coumadin) Dispo: At this point, no further cardiac intervention necessary. Pt needs to follow up with Dr. Pendleton o/p. Thank you for this interesting consult Abhinav Daniel DO PGY - 1 d/w Dr. Pendleton.
[2017-03-10 08:11] VITALS: RESP 18
[2017-03-10] MEDS: Sucralfate 1 gm/10 ml Oral Susp UD PO SCH ×2 (08:23→12:30)
[2017-03-10] MEDS: LIPASE/PROTEASE/AMYLASE 4,200 U ECC PO SCH ×2 (08:24→12:31)
[2017-03-10 09:09] LABS: BLOOD UREA NITROGEN 25 mg/dL (7-17); CALCIUM 8.9 mg/dl (8.6-10.4); CHLORIDE 89 mmol/L (98-107); GFR AFRICAN-AMERICAN > 60; GLUCOSE,RANDOM 97 mg/dL (65-105); POTASSIUM 3.7 mmol/L (3.6-5.2); SODIUM 136 mmol/L (132-148)
[2017-03-10 09:16] LABS: CARBON DIOXIDE 39 mmol/L (22-30)
[2017-03-10] MEDS: guaiFENesin 600 mg ER Tab PO SCH (09:35)
[2017-03-10] MEDS: Pantoprazole 40 mg EC Tab PO SCH (09:35)
[2017-03-10] MEDS: Metoprolol Succinate 25 mg XL Tab PO SCH (09:35)
[2017-03-10] MEDS: diltiaZEM 240 mg/24 Hours CD Cap PO SCH (09:35)
[2017-03-10] MEDS: Enoxaparin 40 mg Syringe SC SCH (09:35)
[2017-03-10] MEDS: Omega-3-Acid Ethyl Esters 1 GM Cap PO SCH (09:39)
[2017-03-10] MEDS: Fluticasone-Salmeterol 500-50mcg Diskus INH SCH (10:08)
--- NOTE | 2017-03-10 11:39 | CP.PCM.PN ---
Subjective - Date & Time of Evaluation Date of Evaluation: 03/10/17 Time of Evaluation: 11:37 - Subjective Subjective: PT FEELS BETER NO SOB OOB TOLERATING DIET NO PAIN Objective - Vital Signs/Intake and Output Vital Signs (last 24 hours): Temp Pulse Resp BP Pulse Ox 98.1 F 78 18 104/69 97 03/10/17 07:20 03/10/17 07:20 03/10/17 07:20 03/10/17 09:30 03/10/17 07:20 - Medications Medications: Current Medications Albuterol/Ipratropium (Duoneb 3 Mg/0.5 Mg (3 Ml) Ud) 3 ml INH RQ6 [facility] Last Admin: 03/10/17 07:23 Dose: Not Given Aspirin (Ecotrin) 81 mg PO DAILY [facility] Last Admin: 03/10/17 09:35 Dose: 81 mg Digoxin (Lanoxin) 0.125 mg PO DAILY@1800 [facility] Last Admin: 03/09/17 18:12 Dose: 0.125 mg Diltiazem HCl (Cardizem Cd) 240 mg PO DAILY [facility] Last Admin: 03/10/17 09:35 Dose: 240 mg Docusate Sodium (Colace) 200 mg PO HS [facility] Last Admin: 03/09/17 21:29 Dose: 200 mg Enoxaparin Sodium (Lovenox) 40 mg SC DAILY [facility] Last Admin: 03/10/17 09:35 Dose: 40 mg Furosemide (Lasix) 60 mg PO BID [facility] Last Admin: 03/10/17 09:30 Dose: 60 mg Guaifenesin (Mucinex La) 600 mg PO BID [facility] Last Admin: 03/10/17 09:35 Dose: 600 mg Guaifenesin/Dextromethorphan (Robitussin Dm) 5 ml PO Q6 PRN PRN Reason: Cough Last Admin: 03/09/17 21:58 Dose: 5 ml Home Med (Sildenafil [Revatio]) 20 mg PO TID [facility] Insulin Aspart (Novolog) 0 unit SC ACHS [facility] PRN Reason: Protocol Levothyroxine Sodium (Synthroid) 100 mcg PO DAILY@0630 [facility] Last Admin: 03/08/17 06:34 Dose: 100 mcg Metoprolol Succinate (Toprol Xl) 25 mg PO DAILY [facility] Last Admin: 03/10/17 09:35 Dose: 25 mg Montelukast Sodium (Singulair) 10 mg PO HS [facility] Last Admin: 03/09/17 21:29 Dose: 10 mg [id number] Ethyl Esters (Lovaza) 2 gm PO BID [facility] Last Admin: 03/10/17 09:39 Dose: 2 gm Pantoprazole Sodium (Protonix Ec Tab) 40 mg PO DAILY [facility] Last Admin: 03/10/17 09:35 Dose: 40 mg Rivastigmine (Exelon 4.6 Mg/24 Hr Patch) 3 patch TD DAILY [facility] Last Admin: 03/10/17 09:37 Dose: 3 patch Rosuvastatin Calcium (Crestor) 5 mg PO HS [facility] Last Admin: 03/09/17 21:29 Dose: 5 mg Fluticasone/Salmeterol (Advair Diskus 500/50) 1 puff INH RQ12 [facility] Last Admin: 03/10/17 10:08 Dose: 1 puff Spironolactone (Aldactone) 25 mg PO BID [facility] Last Admin: 03/10/17 09:34 Dose: 25 mg Sucralfate (Carafate Oral Susp) 1 gm PO ACTID [facility] Last Admin: 03/10/17 08:23 Dose: 1 gm Zolpidem Tartrate (Ambien) 5 mg PO HS PRN PRN Reason: Insomnia Last Admin: 03/09/17 21:58 Dose: 5 mg - Labs Labs: 03/08/17 12:00 03/10/17 07:39 - Constitutional Appears: Non-toxic - Head Exam Head Exam: NORMAL INSPECTION - Eye Exam Eye Exam: Normal appearance Pupil Exam: NORMAL ACCOMODATION - ENT Exam ENT Exam: Mucous Membranes Moist - Neck Exam Neck Exam: Full ROM - Respiratory Exam Respiratory Exam: NORMAL BREATHING PATTERN - Cardiovascular Exam Cardiovascular Exam: REGULAR RHYTHM - GI/Abdominal Exam GI & Abdominal Exam: Normal Bowel Sounds - Extremities Exam Extremities Exam: Normal Capillary Refill, Normal Inspection Additional comments: NO OEADEAMA - Psychiatric Exam Psychiatric exam: Normal Affect - Skin Skin Exam: Normal Color Assessment and Plan - Assessment and Plan (Free Text) Assessment: AC DEECOMPENSATED CHF COPD PULMONARY HTN DM ARTHRIRIS Plan: D/C HOME WITH PT AND ALL MED F/U IN MY OFFICE [facility]
--- NOTE | 2017-03-10 12:40 | CP.PCM.PN ---
Subjective - Date & Time of Evaluation Date of Evaluation: 03/10/17 Time of Evaluation: 12:40 - Subjective Subjective: PATIENT WAS ADMITTED FOR COPD AND CHEST PAIN She states that she does not need her oxygen at this time, and that her sob is improved. Pt denies cp. Pt again asked about her low blood pressure, states that she thinks this is why she is always tire. Objective - Vital Signs/Intake and Output Vital Signs (last 24 hours): Temp Pulse Resp BP Pulse Ox 98.1 F 70 18 104/69 97 03/10/17 07:20 03/10/17 08:00 03/10/17 07:20 03/10/17 09:30 03/10/17 07:20 - Medications Medications: Current Medications Albuterol/Ipratropium (Duoneb 3 Mg/0.5 Mg (3 Ml) Ud) 3 ml INH RQ6 [facility] Last Admin: 03/10/17 07:23 Dose: Not Given Aspirin (Ecotrin) 81 mg PO DAILY [facility] Last Admin: 03/10/17 09:35 Dose: 81 mg Digoxin (Lanoxin) 0.125 mg PO DAILY@1800 [facility] Last Admin: 03/09/17 18:12 Dose: 0.125 mg Diltiazem HCl (Cardizem Cd) 240 mg PO DAILY [facility] Last Admin: 03/10/17 09:35 Dose: 240 mg Docusate Sodium (Colace) 200 mg PO HS [facility] Last Admin: 03/09/17 21:29 Dose: 200 mg Enoxaparin Sodium (Lovenox) 40 mg SC DAILY [facility] Last Admin: 03/10/17 09:35 Dose: 40 mg Furosemide (Lasix) 60 mg PO BID [facility] Last Admin: 03/10/17 09:30 Dose: 60 mg Guaifenesin (Mucinex La) 600 mg PO BID [facility] Last Admin: 03/10/17 09:35 Dose: 600 mg Guaifenesin/Dextromethorphan (Robitussin Dm) 5 ml PO Q6 PRN PRN Reason: Cough Last Admin: 03/09/17 21:58 Dose: 5 ml Home Med (Sildenafil [Revatio]) 20 mg PO TID [facility] Insulin Aspart (Novolog) 0 unit SC ACHS [facility] PRN Reason: Protocol Levothyroxine Sodium (Synthroid) 100 mcg PO DAILY@0630 [facility] Last Admin: 03/08/17 06:34 Dose: 100 mcg Metoprolol Succinate (Toprol Xl) 25 mg PO DAILY [facility] Last Admin: 03/10/17 09:35 Dose: 25 mg Montelukast Sodium (Singulair) 10 mg PO HS [facility] Last Admin: 03/09/17 21:29 Dose: 10 mg [id number] Ethyl Esters (Lovaza) 2 gm PO BID [facility] Last Admin: 03/10/17 09:39 Dose: 2 gm Pantoprazole Sodium (Protonix Ec Tab) 40 mg PO DAILY [facility] Last Admin: 03/10/17 09:35 Dose: 40 mg Rivastigmine (Exelon 4.6 Mg/24 Hr Patch) 3 patch TD DAILY [facility] Last Admin: 03/10/17 09:37 Dose: 3 patch Rosuvastatin Calcium (Crestor) 5 mg PO HS [facility] Last Admin: 03/09/17 21:29 Dose: 5 mg Fluticasone/Salmeterol (Advair Diskus 500/50) 1 puff INH RQ12 [facility] Last Admin: 03/10/17 10:08 Dose: 1 puff Spironolactone (Aldactone) 25 mg PO BID [facility] Last Admin: 03/10/17 09:34 Dose: 25 mg Sucralfate (Carafate Oral Susp) 1 gm PO ACTID [facility] Last Admin: 03/10/17 12:30 Dose: 1 gm Zolpidem Tartrate (Ambien) 5 mg PO HS PRN PRN Reason: Insomnia Last Admin: 03/09/17 21:58 Dose: 5 mg - Labs Labs: 03/08/17 12:00 03/10/17 07:39 - Head Exam Head Exam: NORMAL INSPECTION - Respiratory Exam Respiratory Exam: Clear to Ausculation Bilateral - Cardiovascular Exam Cardiovascular Exam: +S1, +S2 - Skin Skin Exam: Normal Color Assessment and Plan - Assessment and Plan (Free Text) Assessment: A/P PATIENT WAS SEEN AND EXAMINED AT THE BEDSIDE; LUNG SOUND CLEAR BILATERAL ON AND OFF OXYGEN; BP IS 106 SYSTOLIC; ALSO FOLLOW UP WITH DR SANCHEZ IN HER OFFICE IN A WEEK ----CALL HER OFFICE FOR APPOINTMENT NEW Rx CARDIZEM GIVEN, HTCZ, ALDACTONE AND LASIX STOP TAKING JANUVIA AND LOSARTAN PER DR SANCHEZ DUE TO LOW BLOOD PRESSURE ALSO PATIENT WILL NEEDS PHYSICAL THERAPY THREE TIMES A WEEK OUT PATIENT CALL DR SANCHEZ OR GO TO THE NEAREST EMERGENCY ROOM IS SYMPTOMS RETURN OR WORSENING DR MUÑOZ AND [employer]ER DISCUSS DISCHARGE PLAN WITH PATIENT AND SHE AGREE AND VERBALIZE UNDERSTANDING
[2017-03-10 14:56] VITALS: BP 110/81; PULSE 82; TEMP 98.3
--- NOTE | 2017-03-15 05:42 | DS ---
HISTORY AND HOSPITAL COURSE: The patient came in with chest pain, pressure like and short of breath. She was having tightness. She has history of arthritis. She has history of coronary artery disease, COPD, pulmonary hypertension and she was admitted because of her chest pain, to monitor her cardiac enzymes and to be seen by the Cardiology. Her blood pressure at time of admission was 119/76. She was afebrile. Her sugar was 143. Her blood count was normal, and she was having bilateral edema both lower extremities, decreased breath sounds and some crackles and rales and wheezing. She was put on all medications for her asthma, and she was monitored for her enzymes and EKGs and she was seen by Dr. Pendleton who took her to the cardiac cath and she was taking aspirin, Plavix, Lasix, guaifenesin DM, insulin, Singulair, omega-3, Crestor and Januvia. We felt that the Januvia may increase heart failure and we discontinued that and she was taking Carafate for her stomach. She has no obstruction in the coronary artery disease as per the cardiac cath, so she was continued on her medications and she was gradually improving. She has physical therapy to help her with the walking. She was instructed to get all her medications as per order and to have physical therapy at home, and she was discharged on 03/10/2017 with PT arrangement and the medications. FINAL DIAGNOSES: Congestive heart failure, coronary artery disease, pulmonary hypertension, chronic obstructive pulmonary disease, arthritis and difficulty ambulating. Tomasa Perry MD
== END 2017-03-10 15:35 | disposition home or self-care (01) | DRG 286 ==
LOC: C.ER 15:31 → C.9E 16:59 → C.6T 17:38 → OBSVTOIN 03-04 16:38
PROVIDERS: ADMIT Internal Medicine; ATTEND Internal Medicine
PROC: 4A023N8 Measurement of Cardiac Sampling and Pressure, Bilateral, Percutaneous Approach (ICD-10-PCS; principal; 2017-03-06)
PROC: B2111ZZ Fluoroscopy of Multiple Coronary Arteries using Low Osmolar Contrast (ICD-10-PCS; 2017-03-06)
PROC: B2161ZZ Fluoroscopy of Right and Left Heart using Low Osmolar Contrast (ICD-10-PCS; 2017-03-06)
DX: I25.10 Atherosclerotic heart disease of native coronary artery without angina pectoris (principal); I50.33 Acute on chronic diastolic (congestive) heart failure; E11.22 Type 2 diabetes mellitus with diabetic chronic kidney disease; I48.91 Unspecified atrial fibrillation; J44.1 Chronic obstructive pulmonary disease with (acute) exacerbation; I13.0 Hypertensive heart and chronic kidney disease with heart failure and stage 1 through stage 4 chronic kidney disease, or unspecified chronic kidney disease; I27.20 Pulmonary hypertension, unspecified; E03.9 Hypothyroidism, unspecified; E78.00 Pure hypercholesterolemia, unspecified; F31.9 Bipolar disorder, unspecified; Z97.0 Presence of artificial eye; H91.93 Unspecified hearing loss, bilateral; M19.90 Unspecified osteoarthritis, unspecified site; M81.0 Age-related osteoporosis without current pathological fracture; N18.9 Chronic kidney disease, unspecified; Z86.73 Personal history of transient ischemic attack (TIA), and cerebral infarction without residual deficits

== ENCOUNTER 2017-03-11 11:17 | Inpatient (IN) | payer MEDICARE, MEDICAID ==
[2017-03-11 11:18] VITALS: BMI 35.6
--- NOTE | 2017-03-11 11:47 | C.PDOC ---
History Of Present Illness Patient is a 81 y/o female who presents to the ED with complaints of recurring SOB and CP since last night. Patient was discharged this week after presenting to ED with the same symptoms. Denies fever. Patient admits to feeling weak and reports having to use O2 "all the time". No other physical complaints at this time. RECUR SOB, CP SINCE LAST NIGHT. DC THIS WEEK S/P ADMISSION FOR SAME. NO FEVER. "I FEEL WEAK". NO FEVER. "I HAVE TO USE O2 ALL THE TIME" EXAM MILD DIST NONTOXIC HEENT NEG LUNGS +TACHYPNEA POOR EFFORT NO WHEEZE, AUDIBLE RALE CV IRREG REG NO EDEMA REMAINDER NEG Time Seen by Provider: 03/11/17 11:21 History Per: Patient History/Exam Limitations: no limitations Onset/Duration Of Symptoms: Hrs (last night) Current Symptoms Are (Timing): Still Present Associated Symptoms: Chest Pain. denies: Fever Reports Recently: Seen In ED (with same complaints; discharged) Recent travel outside of the [place]: No Additional History Per: Patient Past Medical History Reviewed: Historical Data, Nursing Documentation, Vital Signs Vital Signs: Last Vital Signs Temp 98.3 F 03/11/17 11:25 Pulse 85 03/11/17 11:25 Resp 24 03/11/17 11:25 BP 103/49 L 03/11/17 11:25 Pulse Ox 92 L 03/11/17 13:33 - Medical History PMH: Anxiety, Arthritis, Asthma, Atrial Fibrillation, Bipolar Disorder, CAD, Cardia Arrhythmia (a fib), CHF, COPD, CVA, Dementia, Depression, Diabetes, Diverticulitis, Fractures (left hip), Gastritis, Hiatal Hernia, HTN, Hypercholesterolemia, Hyperlipidemia, Hypothyroidism, Osteoporosis, Peripheral Edema, Chronic Kidney Disease Surgical History: Cholecystectomy (documented in history but patient does not acknowledge), - [facility] Procedures CORONAR ARTERIOGR-2 CATH (08/24/12) ESOPHAGOGASTRODUODENOSCOPY [EGD] W/CLOSED BIOPSY (10/03/13) EXCISION OF DUODENUM, ENDO, DIAGN (11/02/15) EXCISION OF STOMACH, ENDO, DIAGN (11/02/15) EXERCISE TRMT MUSCULOSK LOW BACK/LE W ASSIST EQUIP (04/26/16) GAIT TRAINING/AMBULAT TREATMENT USING ASSIST EQUIPMENT (04/26/16) GAIT TRAINING/FUNCTIONAL AMBULATION TREATMENT (06/19/15) HOME MANAGEMENT TREATMENT (06/19/15) HOME MANAGEMENT TREATMENT USING ASSIST EQUIPMENT (04/26/16) INTRODUCE OF OTH THERAP SUBST INTO RESP TRACT, VIA OPENING (12/23/16) INTRODUCTION OF ANTI-INFLAM INTO PERIPH VEIN, PERC APPROACH (04/26/16) INTRODUCTION OF ANTI-INFLAM INTO RESP TRACT, VIA OPENING (04/26/16) INTRODUCTION OF SERUM/TOX/VACCINE INTO MUSCLE, PERC APPROACH (03/08/16) LT HEART ANGIOCARDIOGRAM (08/24/12) RT/LEFT HEART CARD CATH (08/24/12) THERAPEUTIC EXERCISE TREATMENT OF MUSCULOSK WHOLE (06/19/15) VACCINATION NEC (10/03/13) Family History: States: Unknown Family Hx - Social History Hx Tobacco Use: No Hx Alcohol Use: No Hx Substance Use: No - Immunization History Hx Tetanus Toxoid Vaccination: No Hx Influenza Vaccination: No Hx Pneumococcal Vaccination: No Review Of Systems Constitutional: Negative for: Fever Cardiovascular: Positive for: Chest Pain Respiratory: Positive for: Shortness of Breath Neurological: Positive for: Weakness Physical Exam - Physical Exam Appears: Non-toxic, In Acute Distress (mild) Head: Atraumatic, Normacephalic Eye(s): bilateral: Normal Inspection Ear(s): Bilateral: Normal Nose: Normal Oral Mucosa: Moist Chest: Symmetrical Cardiovascular: Rhythm Regular, No Murmur Respiratory: Rales, No Wheezing, Other (tachypnea, poor effort) Gastrointestinal/Abdominal: Soft, No Tenderness Extremity: No Pedal Edema, No Swelling Neurological/Psych: Oriented x3, Normal Speech, Normal Cognition, Other (no focal deficits) ED Course And Treatment - Laboratory Results Result Diagrams: 03/11/17 12:10 03/11/17 12:10 Lab Interpretation: No Changes Compared To Prior Results ECG: Interpreted By Ks ECG Rhythm: Atrial Fibrillation Rate From EC O2 Sat by Pulse Oximetry: 92 Pulse Ox Interpretation: Abnormal - Radiology CXR: Interpreted by Me CXR Interpretation: Yes: No Acute Disease (ncp) Progress Note: CXR Impression: Patchy increased markings at the left lung base laterally which may represent some mild atelectasis and or infiltrate with trace left pleural effusion. Dr. Tomasa Perry called at 1:25 pm. - Physician Consult Information Time Consulting Physician Contacted: 01:30 Physician Contacted: Tomasa Perry Progress - Re-Evaluation Re-evaluation Note: 03/11/17 12:31 PT REFUSING VAPOTHERM, REQUESTING O2 NC ONLY 03/11/17 13:30 D/W DR PERRY PT HAD FULL SOSA DURING RECENT ADMISSION. ADMIT OBS - Data Reviewed Data Reviewed: Lab, Diagnostic imaging, EKG, Old records Medical Decision Making Medical Decision Making: Plan: * EKG * Blood work * CXR * Nebulizer treatment * Combivent Respimat Disposition Counseled Patient/Family Regarding: Studies Performed, Diagnosis - Disposition Disposition: HOSPITALIZED Disposition Time: 13:32 Condition: STABLE - POA Present On Arrival: None - Clinical Impression Clinical Impression: Dyspnea - Scribe Statement The provider has reviewed the documentation as recorded by the Scribe Elizabeth Moeller All medical record entries made by the Scribe were at my direction and personally dictated by me. I have reviewed the chart and agree that the record accurately reflects my personal performance of the history, physical exam, medical decision making, and the department course for this patient. I have also personally directed, reviewed, and agree with the discharge instructions and disposition. Decision To Admit - Pt Status Changed To: Hospital Disposition Of: Observation - . Bed Request Type: Telemetry Admitting Physician: Tomasa Perry Patient Diagnosis: Dyspnea
[2017-03-11] MEDS ORDERED: Albuterol-Ipratrop 3 mg / 0.5 (3 ml) UD IH STA (11:49)
[2017-03-11 12:21] LABS: BASO % 0.5 % (0.0-2.0); EOS # 0.1 K/uL (0.0-0.7); EOS % 1.8 % (0.0-4.0); HEMATOCRIT 44.2 % (34.0-47.0); LYMPH # 2.3 K/uL (1.0-4.3); LYMPH % 35.1 % (20.0-40.0); MEAN CELL VOLUME 90.6 fL (81.0-99.0); MEAN CORPUSCULAR HGB CONC 33.1 g/dL (33.0-37.0); MEAN PLATELET VOLUME 8.9 fL (7.2-11.7); MONO % 14.9 % (0.0-10.0); RED CELL DISTRIBUTION WIDTH 14.3 % (11.5-14.5); WHITE BLOOD COUNT 6.7 K/uL (4.8-10.8)
[2017-03-11] MEDS ORDERED: Albuterol-Ipratrop 3 mg / 0.5 (3 ml) UD ONE (12:29)
--- NOTE | 2017-03-11 12:46 | RAD ---
Chest x-ray single frontal view History: Shortness of breath. Comparison: 03/03/2017 Findings: Patchy increased markings at the left lung base laterally which may represent some mild atelectasis and or infiltrate with trace left pleural effusion. Mild venous congestion. Upper lobe granulomatous changes. Cardiomegaly. Calcification at the aortic knob. Degenerative changes in the spine and shoulders. Impression: Patchy increased markings at the left lung base laterally which may represent some mild atelectasis and or infiltrate with trace left pleural effusion. Mild venous congestion. Upper lobe granulomatous changes. Cardiomegaly.
[2017-03-11 12:51] LABS: ALKALINE PHOSPHATASE 117 U/L (38-126); ALT/SGPT 45 U/L (9-52); AST/SGOT 38 U/L (14-36); BILIRUBIN,TOTAL 0.6 mg/dL (0.2-1.3); BLOOD UREA NITROGEN 29 mg/dL (7-17); CALCIUM 9.1 mg/dl (8.6-10.4); CARBON DIOXIDE 40 mmol/L (22-30); CHLORIDE 91 mmol/L (98-107); GFR AFRICAN-AMERICAN > 60; GLUCOSE,RANDOM 103 mg/dL (65-105); POTASSIUM 3.8 mmol/L (3.6-5.2); SODIUM 137 mmol/L (132-148); TOTAL PROTEIN 7.6 g/dL (6.3-8.3)
--- NOTE | 2017-03-11 14:11 | CP.PCM.HP ---
History of Present Illness - History of Present Illness History of Present Illness: pt came in to er feeling very weeke dizzy light headed unable to walk sob scared was d/c yesterday Present on Admission - Present on Admission Any Indicators Present on Admission: No Review of Systems - Review of Systems Systems not reviewed;Unavailable: Acuity of Condition, Unstable Vital Signs, Respiratory Distress - Constitutional Constitutional: Fatigue - EENT Eyes: As Per HPI Ears: As Per HPI Nose/Mouth/Throat: As Per HPI - Breasts Breasts: As Per HPI - Cardiovascular Cardiovascular: Dyspnea, Dyspnea on Exertion, Irregular Heart Rhythm, Leg Edema , Rapid Heart Rate - Respiratory Respiratory: Dyspnea, Dyspnea on Exertion - Genitourinary Genitourinary: As Per HPI, Voiding Freq/Small Amts - Reproductive: Female Reproductive:Female: Post Menopausal - Menstruation Menstruation: Post Menopausal - Musculoskeletal Musculoskeletal: Arthralgias, Back Pain, Joint Swelling, Numbness, Stiffness - Integumentary Integumentary: As Per HPI - Neurological Neurological: Dizziness, Lack of Coordination - Psychiatric Psychiatric: Anxiety - Endocrine Endocrine: Cold Intolorance, Fatigue, Palpitations - Hematologic/Lymphatic Hematologic: As Per HPI Past Patient History - Infectious Disease Hx of Infectious Diseases: None - Past Medical History & Family History Past Medical History?: Yes - Past Social History Smoking Status: Never Smoked - CARDIAC Hx Atrial Fibrillation: Yes Hx Cardia Arrhythmia: Yes (a fib) Hx Congestive Heart Failure: Yes Hx Hypercholesterolemia: Yes Hx Hypertension: Yes Hx Peripheral Edema: Yes - PULMONARY Hx Asthma: Yes Hx Chronic Obstructive Pulmonary Disease (COPD): Yes - NEUROLOGICAL Hx Dementia: Yes - HEENT Hx HEENT Problems: Yes 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) Hx Glaucoma: Yes (right eye) - RENAL Hx Chronic Kidney Disease: Yes - ENDOCRINE/METABOLIC Hx Hypothyroidism: Yes - INTEGUMENTARY Hx Dermatological Problems: No Other/Comment: redness sacrum/buttocks - MUSCULOSKELETAL/RHEUMATOLOGICAL Hx Arthritis: Yes Hx Fractures: Yes (left hip) Hx Osteoporosis: Yes - GASTROINTESTINAL Hx Diverticulitis: Yes Hx Gastritis: Yes - GENITOURINARY/GYNECOLOGICAL Hx Genitourinary Disorders: Yes Hx Incontinence: Yes - PSYCHIATRIC Hx Anxiety: Yes Hx Bipolar Disorder: Yes Hx Depression: Yes Hx Substance Use: No - SURGICAL HISTORY Hx Cholecystectomy: Yes (documented in history but patient does not acknowledge) - ANESTHESIA Hx Anesthesia: Yes Hx Anesthesia Reactions: No Hx Malignant Hyperthermia: No Meds Allergies/Adverse Reactions: Allergies Allergy/AdvReac Type Severity Reaction Status Date / Time No Known Allergies Allergy Verified 03/03/17 15:38 Physical Exam - Constitutional Appears: In Acute Distress - Head Exam Head Exam: NORMOCEPHALIC - Eye Exam Additional comments: one eye - ENT Exam ENT Exam: Mucous Membranes Moist - Neck Exam Neck exam: Positive for: Full Rom - Respiratory Exam Respiratory Exam: Decreased Breath Sounds - Cardiovascular Exam Cardiovascular Exam: Irregular Rhythm - GI/Abdominal Exam GI & Abdominal Exam: Normal Bowel Sounds - Extremities Exam Extremities exam: Positive for: pedal edema - Back Exam Back exam: CVA tenderness (L), tenderness - Neurological Exam Neurological exam: Abnormal Gait, Oriented x3 - Psychiatric Exam Psychiatric exam: Anxious, Normal Affect - Skin Skin Exam: Normal Color Results - Vital Signs Recent Vital Signs: Last Vital Signs Temp 98.3 F 03/11/17 11:25 Pulse 81 03/11/17 13:42 Resp 20 03/11/17 13:42 BP 108/67 03/11/17 13:42 Pulse Ox 96 03/11/17 13:42 - Labs Result Diagrams: 03/11/17 12:10 03/11/17 12:10 Labs: Laboratory Results - last 24 hr 03/11/17 03/11/17 03/11/17 11:36 12:10 12:10 WBC 6.7 RBC 4.88 Hgb 14.6 D Hct 44.2 MCV 90.6 MCH 30.0 MCHC 33.1 RDW 14.3 Plt Count 214 MPV 8.9 Neut % (Auto) 47.7 L Lymph % (Auto) 35.1 [place] % (Auto) 14.9 H Eos % (Auto) 1.8 Baso % (Auto) 0.5 Neut # 3.2 Lymph # 2.3 [place] # 1.0 H Eos # 0.1 Baso # 0.0 Sodium 137 Potassium 3.8 Chloride 91 L Carbon Dioxide 40 H* Anion Gap 10 BUN 29 H Creatinine 0.8 Est GFR ( Amer) > 60 Est GFR (Non-Af Amer) > 60 POC Glucose (mg/dL) 112 H Random Glucose 103 Calcium 9.1 Total Bilirubin 0.6 AST 38 H ALT 45 Alkaline Phosphatase 117 Troponin I < 0.0120 NT-Pro-B Natriuret Pep 1210 H Total Protein 7.6 Albumin 3.9 Globulin 3.7 Albumin/Globulin Ratio 1.0 Influenza Typ A,B (EIA) 03/11/17 12:20 WBC RBC Hgb Hct MCV MCH MCHC RDW Plt Count MPV Neut % (Auto) Lymph % (Auto) [place] % (Auto) Eos % (Auto) Baso % (Auto) Neut # Lymph # [place] # Eos # Baso # Sodium Potassium Chloride Carbon Dioxide Anion Gap BUN Creatinine Est GFR ( Amer) Est GFR (Non-Af Amer) POC Glucose (mg/dL) Random Glucose Calcium Total Bilirubin AST ALT Alkaline Phosphatase Troponin I NT-Pro-B Natriuret Pep Total Protein Albumin Globulin Albumin/Globulin Ratio Influenza Typ A,B (EIA) Negative for flu a/b Assessment & Plan - Assessment and Plan (Free Text) Assessment: acdizziness weekness anexiety decompansated chf cardiac arrythmia copd arthritis hypotension Plan: admit pt to tele - Date & Time Date: 03/11/17 Time: 14:16
[2017-03-11] MEDS: Levothyroxine 100 MCG TAB PO SCH (17:29)
--- NOTE | 2017-03-11 22:29 | CP.PCM.CON ---
History of Present Illness - History of Present Illness History of Present Illness: consultation for dizziness, fatigue , hx of diastolic CHF and afib HPI: Thyroid is a pleasant 81-year-old English female with past medical history significant for hypertension dyslipidemia morbid obesity primary pulmonary hypertension diastolic congestive heart failure who has been followed by me for the last 4-5 years. She was recently seen by me in the office last week at which time she was noted to have worsening shortness of breath and lower extremity swelling and the plan was for further evaluation for possible right heart catheterization. Over the course of last hospitalization at which time she was complaining of chest pain and shortness of breath she underwent a cardiac catheterization showing mild to moderate CAD with mild to moderate pulmonary hypertension she was kept on IV diuretic therapy with IV Lasix which improved her swelling and edema significantly she was also noted to be in atrial fibrillation with variable ventricular response for which she was initiated on digoxin therapy with the improvement in her heart rate. She was subsequently discharged home yesterday and then went home and felt that she is getting extremely fatigued lethargic and short of breath and got very concerned and came back to the emergency room. Review of Systems - Review of Systems Systems not reviewed;Unavailable: Acuity of Condition - Constitutional Constitutional: As Per HPI, Fatigue, Lethargy, Malaise - EENT Eyes: As Per HPI Ears: As Per HPI Nose/Mouth/Throat: As Per HPI - Breasts Breasts: As Per HPI - Cardiovascular Cardiovascular: As Per HPI, Irregular Heart Rhythm - Respiratory Respiratory: As Per HPI - Gastrointestinal Gastrointestinal: As Per HPI - Genitourinary Genitourinary: As Per HPI - Reproductive: Female Reproductive:Female: As Per HPI - Musculoskeletal Musculoskeletal: As Per HPI - Integumentary Integumentary: As Per HPI - Neurological Neurological: As Per HPI, Abnormal Gait - Psychiatric Psychiatric: As Per HPI - Endocrine Endocrine: As Per HPI - Hematologic/Lymphatic Hematologic: As Per HPI Past Patient History - Infectious Disease Hx of Infectious Diseases: None - Past Medical History & Family History Past Medical History?: Yes - Past Social History Smoking Status: Never Smoked - CARDIAC Hx Atrial Fibrillation: Yes Hx Cardia Arrhythmia: Yes (a fib) Hx Congestive Heart Failure: Yes Hx Hypercholesterolemia: Yes Hx Hypertension: Yes Hx Peripheral Edema: Yes - PULMONARY Hx Asthma: Yes Hx Chronic Obstructive Pulmonary Disease (COPD): Yes - NEUROLOGICAL Hx Dementia: Yes - HEENT Hx HEENT Problems: Yes 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) Hx Glaucoma: Yes (right eye) - RENAL Hx Chronic Kidney Disease: Yes - ENDOCRINE/METABOLIC Hx Hypothyroidism: Yes - INTEGUMENTARY Hx Dermatological Problems: No Other/Comment: redness sacrum/buttocks - MUSCULOSKELETAL/RHEUMATOLOGICAL Hx Arthritis: Yes Hx Fractures: Yes (left hip) Hx Osteoporosis: Yes - GASTROINTESTINAL Hx Diverticulitis: Yes Hx Gastritis: Yes - GENITOURINARY/GYNECOLOGICAL Hx Genitourinary Disorders: Yes Hx Incontinence: Yes - PSYCHIATRIC Hx Anxiety: Yes Hx Bipolar Disorder: Yes Hx Depression: Yes Hx Substance Use: No - SURGICAL HISTORY Hx Cholecystectomy: Yes (documented in history but patient does not acknowledge) - ANESTHESIA Hx Anesthesia: Yes Hx Anesthesia Reactions: No Hx Malignant Hyperthermia: No Meds Allergies/Adverse Reactions: Allergies Allergy/AdvReac Type Severity Reaction Status Date / Time No Known Allergies Allergy Verified 03/03/17 15:38 - Medications Medications: Current Medications Aspirin (Ecotrin) 81 mg PO DAILY [facility] Last Admin: 03/11/17 17:14 Dose: 81 mg Docusate Sodium (Colace) 200 mg PO HS [facility] Last Admin: 03/11/17 21:11 Dose: 200 mg Ergocalciferol (Drisdol 50,000 Intl Units Cap) 1 cap PO QWK [facility] Furosemide (Lasix) 20 mg IVP DAILY [facility] Last Admin: 03/11/17 17:14 Dose: 20 mg Home Med (Lipase/Protease/Amylase [Zenpep Dr 20,000 Units Capsule]) 2 cap PO BID [facility] Home Med (Sildenafil [Revatio]) 20 mg PO TID [facility] Levothyroxine Sodium (Synthroid) 100 mcg PO DAILY@0630 [facility] Last Admin: 03/11/17 17:29 Dose: 100 mcg Magnesium Oxide (Mag-Ox) 800 mg PO DAILY [facility] Metoclopramide HCl (Reglan) 5 mg PO ACTID [facility] Last Admin: 03/11/17 18:22 Dose: 5 mg Rivastigmine (Exelon 4.6 Mg/24 Hr Patch) 3 patch TD DAILY [facility] Last Admin: 03/11/17 18:22 Dose: 3 patch Rosuvastatin Calcium (Crestor) 5 mg PO HS [facility] Last Admin: 03/11/17 21:11 Dose: 5 mg Spironolactone (Aldactone) 25 mg PO DAILY [facility] Physical Exam - Constitutional Appears: Well - Head Exam Head Exam: ATRAUMATIC, NORMAL INSPECTION, NORMOCEPHALIC - Eye Exam Eye Exam: EOMI, Normal appearance, PERRL Pupil Exam: NORMAL ACCOMODATION, PERRL - ENT Exam ENT Exam: Mucous Membranes Moist, Normal Exam - Neck Exam Neck exam: Positive for: Normal Inspection - Respiratory Exam Respiratory Exam: Clear to Auscultation Bilateral, Rales, NORMAL BREATHING PATTERN - Cardiovascular Exam Cardiovascular Exam: Irregular Rhythm, +S1, +S2, Systolic Murmur - GI/Abdominal Exam GI & Abdominal Exam: Normal Bowel Sounds, Soft. absent: Tenderness - Extremities Exam Extremities exam: Positive for: normal inspection, pedal edema - Back Exam Back exam: NORMAL INSPECTION - Neurological Exam Neurological exam: Alert, CN II-XII Intact, Normal Gait, Oriented x3, Reflexes Normal - Psychiatric Exam Psychiatric exam: Normal Affect, Normal Mood - Skin Skin Exam: Dry, Intact, Normal Color, Warm Results - Vital Signs Recent Vital Signs: Last Vital Signs Temp 98.1 F 03/11/17 15:33 Pulse 85 03/11/17 15:33 Resp 20 03/11/17 15:33 BP 110/64 03/11/17 17:14 Pulse Ox 96 03/11/17 15:33 - Labs Result Diagrams: 03/11/17 12:10 03/11/17 12:10 Labs: Laboratory Results - last 24 hr 03/11/17 03/11/17 03/11/17 11:36 12:10 12:10 WBC 6.7 RBC 4.88 Hgb 14.6 D Hct 44.2 MCV 90.6 MCH 30.0 MCHC 33.1 RDW 14.3 Plt Count 214 MPV 8.9 Neut % (Auto) 47.7 L Lymph % (Auto) 35.1 [place] % (Auto) 14.9 H Eos % (Auto) 1.8 Baso % (Auto) 0.5 Neut # 3.2 Lymph # 2.3 [place] # 1.0 H Eos # 0.1 Baso # 0.0 Sodium 137 Potassium 3.8 Chloride 91 L Carbon Dioxide 40 H* Anion Gap 10 BUN 29 H Creatinine 0.8 Est GFR ( Amer) > 60 Est GFR (Non-Af Amer) > 60 POC Glucose (mg/dL) 112 H Random Glucose 103 Calcium 9.1 Total Bilirubin 0.6 AST 38 H ALT 45 Alkaline Phosphatase 117 Troponin I < 0.0120 NT-Pro-B Natriuret Pep 1210 H Total Protein 7.6 Albumin 3.9 Globulin 3.7 Albumin/Globulin Ratio 1.0 Influenza Typ A,B (EIA) 03/11/17 03/11/17 03/11/17 12:20 17:20 22:08 WBC RBC Hgb Hct MCV MCH MCHC RDW Plt Count MPV Neut % (Auto) Lymph % (Auto) [place] % (Auto) Eos % (Auto) Baso % (Auto) Neut # Lymph # [place] # Eos # Baso # Sodium Potassium Chloride Carbon Dioxide Anion Gap BUN Creatinine Est GFR ( Amer) Est GFR (Non-Af Amer) POC Glucose (mg/dL) 129 H 104 Random Glucose Calcium Total Bilirubin AST ALT Alkaline Phosphatase Troponin I NT-Pro-B Natriuret Pep Total Protein Albumin Globulin Albumin/Globulin Ratio Influenza Typ A,B (EIA) Negative for flu a/b Assessment & Plan (1) CHF (congestive heart failure), NYHA class III Assessment and Plan: stable cont lasix 20mg IV daily cont bb, arb cont aldactone Status: Acute (2) Dyspnea Assessment and Plan: 2' to pulmonary HTN cont sildenafil Status: Acute (3) A-fib Assessment and Plan: cont digoxin, bb Status: Chronic (4) Hypertension Status: Chronic (5) Pulmonary hypertension Status: Chronic (6) Fatigue Status: Acute (7) Hypokalemia Status: Acute
[2017-03-12] MEDS: Levothyroxine 100 MCG TAB PO SCH (05:44)
[2017-03-12] MEDS: Magnesium Oxide 400 mg Tab UD PO SCH (09:29)
[2017-03-12] MEDS ORDERED: DICLOFENAC SODIUM APPL TOP PRN (11:47)
--- NOTE | 2017-03-12 12:01 | CP.PCM.PN ---
Subjective - Date & Time of Evaluation Date of Evaluation: 03/12/17 Time of Evaluation: 11:59 - Subjective Subjective: weeke sob Objective - Vital Signs/Intake and Output Vital Signs (last 24 hours): Temp Pulse Resp BP Pulse Ox 97.6 F 66 18 121/74 96 03/12/17 07:20 03/12/17 07:20 03/12/17 07:20 03/12/17 09:26 03/12/17 07:20 Intake and Output: 03/12/17 03/12/17 06:59 18:59 Intake Total 300 Balance 300 - Medications Medications: Current Medications Aspirin (Ecotrin) 81 mg PO DAILY [facility] Last Admin: 03/12/17 09:30 Dose: 81 mg Docusate Sodium (Colace) 200 mg PO HS [facility] Last Admin: 03/11/17 21:11 Dose: 200 mg Ergocalciferol (Drisdol 50,000 Intl Units Cap) 1 cap PO QWK [facility] Furosemide (Lasix) 20 mg IVP DAILY [facility] Last Admin: 03/12/17 09:26 Dose: 20 mg Heparin Sodium (Porcine) (Heparin) 5,000 units SC STAT STA Stop: 03/12/17 11:50 Heparin Sodium (Porcine) (Heparin) 5,000 units SC BID [facility] Home Med (Sildenafil [Revatio]) 20 mg PO TID [facility] Home Med (Linaclotide [Linzess]) 290 mcg PO DAILY PRN PRN Reason: Constipation Home Med (Tolterodine Tartrate [Detrol La]) 4 mg PO DAILY [facility] Home Med (Diclofenac Sodium [Voltaren]) 1 appl TOP QID PRN PRN Reason: Pain, Mild (1-3) Levothyroxine Sodium (Synthroid) 100 mcg PO DAILY@0630 [facility] Last Admin: 03/12/17 05:44 Dose: 100 mcg Magnesium Oxide (Mag-Ox) 800 mg PO DAILY [facility] Last Admin: 03/12/17 09:29 Dose: 800 mg Metoclopramide HCl (Reglan) 5 mg PO ACTID [facility] Last Admin: 03/12/17 08:08 Dose: 5 mg [id number] Ethyl Esters (Lovaza) 2 gm PO BID [facility] Polyethylene Glycol (Miralax) 17 gm PO ACD [facility] Rivastigmine (Exelon 4.6 Mg/24 Hr Patch) 3 patch TD DAILY [facility] Last Admin: 03/11/17 18:22 Dose: 3 patch Rosuvastatin Calcium (Crestor) 5 mg PO HS [facility] Last Admin: 03/11/17 21:11 Dose: 5 mg Spironolactone (Aldactone) 25 mg PO DAILY [facility] Last Admin: 03/12/17 09:29 Dose: 25 mg - Labs Labs: 03/11/17 12:10 03/11/17 12:10 - Constitutional Appears: Non-toxic - Head Exam Head Exam: NORMAL INSPECTION - ENT Exam ENT Exam: Mucous Membranes Moist - Neck Exam Neck Exam: Full ROM - Respiratory Exam Respiratory Exam: Decreased Breath Sounds - Cardiovascular Exam Cardiovascular Exam: REGULAR RHYTHM - GI/Abdominal Exam GI & Abdominal Exam: Normal Bowel Sounds - Extremities Exam Extremities Exam: Calf Tenderness - Back Exam Back Exam: CVA tenderness (L) - Neurological Exam Neurological Exam: Alert, Awake, Oriented x3 - Psychiatric Exam Psychiatric exam: Normal Affect - Skin Skin Exam: Normal Color Assessment and Plan - Assessment and Plan (Free Text) Assessment: copd chf arthritis dificulty ambulating pulmonary htn Plan: cont as per prders arrange for rehab
[2017-03-12] MEDS: LIPASE/PROTEASE/AMYLASE 4,200 U ECC PO SCH ×2 (14:15→17:38)
[2017-03-12] MEDS: POLYETHYLENE GLYCOL 3350 17 GM/Dose PACKET PO SCH (19:21)
[2017-03-12] MEDS: Omega-3-Acid Ethyl Esters 1 GM Cap PO SCH (19:21)
--- NOTE | 2017-03-13 02:50 | CP.PCM.PN ---
Subjective - Date & Time of Evaluation Date of Evaluation: 03/12/17 Time of Evaluation: 23:00 - Subjective Subjective: patient laying in bed fatigue +Ve Objective - Vital Signs/Intake and Output Vital Signs (last 24 hours): Temp Pulse Resp BP Pulse Ox 98.1 F 85 20 140/85 99 03/12/17 23:10 03/12/17 23:35 03/12/17 23:10 03/12/17 23:10 03/12/17 23:10 Intake and Output: 03/12/17 03/13/17 18:59 06:59 Intake Total 300 Balance 300 - Medications Medications: Current Medications Aspirin (Ecotrin) 81 mg PO DAILY [facility] Last Admin: 03/12/17 09:30 Dose: 81 mg Docusate Sodium (Colace) 200 mg PO HS [facility] Last Admin: 03/12/17 21:19 Dose: 200 mg Ergocalciferol (Drisdol 50,000 Intl Units Cap) 1 cap PO QWK [facility] Furosemide (Lasix) 20 mg IVP DAILY [facility] Last Admin: 03/12/17 09:26 Dose: 20 mg Heparin Sodium (Porcine) (Heparin) 5,000 units SC Q12 [facility] Last Admin: 03/12/17 21:20 Dose: 5,000 units Home Med (Sildenafil [Revatio]) 20 mg PO TID [facility] Home Med (Linaclotide [Linzess]) 290 mcg PO DAILY PRN PRN Reason: Constipation Home Med (Diclofenac Sodium [Voltaren]) 1 appl TOP QID PRN PRN Reason: Pain, Mild (1-3) Levothyroxine Sodium (Synthroid) 100 mcg PO DAILY@0630 [facility] Last Admin: 03/12/17 05:44 Dose: 100 mcg Magnesium Oxide (Mag-Ox) 800 mg PO DAILY [facility] Last Admin: 03/12/17 09:29 Dose: 800 mg Metoclopramide HCl (Reglan) 5 mg PO ACTID [facility] Last Admin: 03/12/17 17:42 Dose: 5 mg [id number]-[id number] Ethyl Esters (Lovaza) 2 gm PO BID [facility] Last Admin: 03/12/17 19:21 Dose: Not Given Polyethylene Glycol (Miralax) 17 gm PO ACD [facility] Last Admin: 03/12/17 19:21 Dose: 17 gm Rivastigmine (Exelon 4.6 Mg/24 Hr Patch) 3 patch TD DAILY [facility] Last Admin: 03/12/17 11:00 Dose: 3 patch Rosuvastatin Calcium (Crestor) 5 mg PO HS [facility] Last Admin: 03/12/17 21:19 Dose: 5 mg Spironolactone (Aldactone) 25 mg PO DAILY [facility] Last Admin: 03/12/17 09:29 Dose: 25 mg Tolterodine Tartrate (Detrol La) 4 mg PO DAILY [facility] - Labs Labs: 03/11/17 12:10 03/11/17 12:10 - Constitutional Appears: Well - Head Exam Head Exam: ATRAUMATIC, NORMAL INSPECTION, NORMOCEPHALIC - Eye Exam Eye Exam: EOMI, Normal appearance, PERRL Pupil Exam: NORMAL ACCOMODATION, PERRL - ENT Exam ENT Exam: Mucous Membranes Moist, Normal Exam - Neck Exam Neck Exam: Full ROM, Normal Inspection. absent: Lymphadenopathy - Respiratory Exam Respiratory Exam: Rales, NORMAL BREATHING PATTERN - Cardiovascular Exam Cardiovascular Exam: Irregular Rhythm, +S1, +S2, Murmur - GI/Abdominal Exam GI & Abdominal Exam: Soft, Normal Bowel Sounds. absent: Tenderness - Exam Bimanual exam: NORMAL BIMANUAL EXAM - Extremities Exam Extremities Exam: Full ROM, Normal Capillary Refill, Normal Inspection, Pedal Edema. absent: Joint Swelling - Back Exam Back Exam: NORMAL INSPECTION - Neurological Exam Neurological Exam: Alert, Awake, CN II-XII Intact, Normal Gait, Oriented x3 - Psychiatric Exam Psychiatric exam: Normal Affect, Normal Mood - Skin Skin Exam: Dry, Intact, Normal Color, Warm Assessment and Plan (1) CHF (congestive heart failure), NYHA class III Status: Acute (2) Dyspnea Status: Acute (3) A-fib Status: Chronic (4) Hypertension Status: Chronic (5) Pulmonary hypertension Status: Chronic (6) Fatigue Status: Acute (7) Hypokalemia Status: Acute
[2017-03-13] MEDS: Levothyroxine 100 MCG TAB PO SCH (06:42)
[2017-03-13] MEDS: Magnesium Oxide 400 mg Tab UD PO SCH (09:15)
[2017-03-13] MEDS: LIPASE/PROTEASE/AMYLASE 4,200 U ECC PO SCH ×4 (09:18→20:31)
[2017-03-13] MEDS: Omega-3-Acid Ethyl Esters 1 GM Cap PO SCH ×2 (10:15→17:01)
[2017-03-13] MEDS: Tolterodine 4 mg ER Cap PO SCH (10:15)
[2017-03-13] MEDS: POLYETHYLENE GLYCOL 3350 17 GM/Dose PACKET PO SCH (17:02)
--- NOTE | 2017-03-13 17:51 | CP.PCM.PN ---
Subjective - Date & Time of Evaluation Date of Evaluation: 03/13/17 Time of Evaluation: 17:48 - Subjective Subjective: pt weeke less sob in no distress had pt today needs SATHYA Objective - Vital Signs/Intake and Output Vital Signs (last 24 hours): Temp Pulse Resp BP Pulse Ox 97.8 F 92 H 20 129/81 98 03/13/17 15:00 03/13/17 15:00 03/13/17 15:00 03/13/17 15:00 03/13/17 15:00 Intake and Output: 03/13/17 03/13/17 06:59 18:59 Intake Total 300 Balance 300 - Medications Medications: Current Medications Aspirin (Ecotrin) 81 mg PO DAILY [facility] Last Admin: 03/13/17 09:16 Dose: 81 mg Docusate Sodium (Colace) 200 mg PO HS [facility] Last Admin: 03/12/17 21:19 Dose: 200 mg Ergocalciferol (Drisdol 50,000 Intl Units Cap) 1 cap PO QWK [facility] Furosemide (Lasix) 20 mg IVP DAILY [facility] Last Admin: 03/13/17 09:16 Dose: 20 mg Heparin Sodium (Porcine) (Heparin) 5,000 units SC Q12 [facility] Last Admin: 03/13/17 09:20 Dose: 5,000 units Home Med (Sildenafil [Revatio]) 20 mg PO TID [facility] Home Med (Linaclotide [Linzess]) 290 mcg PO DAILY PRN PRN Reason: Constipation Home Med (Diclofenac Sodium [Voltaren]) 1 appl TOP QID PRN PRN Reason: Pain, Mild (1-3) Levothyroxine Sodium (Synthroid) 100 mcg PO DAILY@0630 [facility] Last Admin: 03/13/17 06:42 Dose: 100 mcg Magnesium Oxide (Mag-Ox) 800 mg PO DAILY [facility] Last Admin: 03/13/17 09:15 Dose: 800 mg Metoclopramide HCl (Reglan) 5 mg PO ACTID [facility] Last Admin: 03/13/17 17:03 Dose: 5 mg [id number]-6-Dsua Ethyl Esters (Lovaza) 2 gm PO BID [facility] Last Admin: 03/13/17 17:01 Dose: 2 gm Polyethylene Glycol (Miralax) 17 gm PO ACD [facility] Last Admin: 03/13/17 17:02 Dose: Not Given Rivastigmine (Exelon 4.6 Mg/24 Hr Patch) 3 patch TD DAILY [facility] Last Admin: 03/13/17 09:21 Dose: 3 patch Rosuvastatin Calcium (Crestor) 5 mg PO HS [facility] Last Admin: 03/12/17 21:19 Dose: 5 mg Spironolactone (Aldactone) 25 mg PO DAILY [facility] Last Admin: 03/13/17 09:14 Dose: 25 mg Tolterodine Tartrate (Detrol La) 4 mg PO DAILY [facility] Last Admin: 03/13/17 10:15 Dose: 4 mg - Labs Labs: 03/11/17 12:10 03/11/17 12:10 - Constitutional Appears: Non-toxic - Head Exam Head Exam: NORMAL INSPECTION - Eye Exam Eye Exam: Normal appearance Pupil Exam: NORMAL ACCOMODATION - ENT Exam ENT Exam: Mucous Membranes Moist - Neck Exam Neck Exam: Full ROM - Respiratory Exam Respiratory Exam: Decreased Breath Sounds, NORMAL BREATHING PATTERN - Cardiovascular Exam Cardiovascular Exam: REGULAR RHYTHM - GI/Abdominal Exam GI & Abdominal Exam: Normal Bowel Sounds - Rectal Exam Rectal Exam: NORMAL INSPECTION - Back Exam Back Exam: NORMAL INSPECTION - Neurological Exam Neurological Exam: Abnormal Gait, Alert - Psychiatric Exam Psychiatric exam: Normal Affect - Skin Skin Exam: Normal Color Assessment and Plan - Assessment and Plan (Free Text) Assessment: generalised weekness arthritis chf copd dm ph Plan: as per orders
--- NOTE | 2017-03-13 17:54 | CARD ---
APPROVED REPORT EKG Measurement Heart [id number] <Conclusion> Atrial fibrillation Left axis deviation Abnormal ECG
[2017-03-14] MEDS: Levothyroxine 100 MCG TAB PO SCH (06:32)
[2017-03-14 06:48] LABS: BASO % 0.5 % (0.0-2.0); EOS # 0.2 K/uL (0.0-0.7); EOS % 2.5 % (0.0-4.0); LYMPH # 3.1 K/uL (1.0-4.3); LYMPH % 52.7 % (20.0-40.0); MEAN CELL VOLUME 89.8 fL (81.0-99.0); MEAN CORPUSCULAR HEMOGLOBIN 29.5 pg (27.0-31.0); MEAN CORPUSCULAR HGB CONC 32.8 g/dL (33.0-37.0); MEAN PLATELET VOLUME 9.2 fL (7.2-11.7); MONO # 0.7 K/uL (0.0-0.8); MONO % 11.7 % (0.0-10.0)
[2017-03-14 07:04] LABS: BLOOD UREA NITROGEN 32 mg/dL (7-17); CALCIUM 8.8 mg/dl (8.6-10.4); CARBON DIOXIDE 39 mmol/L (22-30); CHLORIDE 89 mmol/L (98-107); GFR AFRICAN-AMERICAN > 60; GLUCOSE,RANDOM 98 mg/dL (65-105); POTASSIUM 3.2 mmol/L (3.6-5.2); SODIUM 135 mmol/L (132-148)
[2017-03-14] MEDS: Omega-3-Acid Ethyl Esters 1 GM Cap PO SCH ×2 (09:18→17:44)
[2017-03-14] MEDS: Magnesium Oxide 400 mg Tab UD PO SCH (09:18)
[2017-03-14] MEDS: Tolterodine 4 mg ER Cap PO SCH (09:19)
[2017-03-14] MEDS: LIPASE/PROTEASE/AMYLASE 4,200 U ECC PO SCH ×3 (09:19→17:44)
--- NOTE | 2017-03-14 11:59 | CP.PCM.PN ---
Subjective - Date & Time of Evaluation Date of Evaluation: 03/14/17 Time of Evaluation: 11:59 - Subjective Subjective: weeke sob Objective - Vital Signs/Intake and Output Vital Signs (last 24 hours): Temp Pulse Resp BP Pulse Ox 97.8 F 80 20 120/74 99 03/14/17 08:30 03/14/17 08:30 03/14/17 08:30 03/14/17 09:17 03/14/17 08:30 Intake and Output: 03/14/17 03/14/17 06:59 18:59 Intake Total 118 Balance 118 - Medications Medications: Current Medications Aspirin (Ecotrin) 81 mg PO DAILY [facility] Last Admin: 03/14/17 09:18 Dose: 81 mg Diphenhydramine HCl (Benadryl) 25 mg PO HS [facility] Docusate Sodium (Colace) 200 mg PO HS [facility] Last Admin: 03/13/17 21:15 Dose: 200 mg Ergocalciferol (Drisdol 50,000 Intl Units Cap) 1 cap PO QWK [facility] Furosemide (Lasix) 20 mg IVP DAILY [facility] Last Admin: 03/14/17 09:17 Dose: 20 mg Heparin Sodium (Porcine) (Heparin) 5,000 units SC Q12 [facility] Last Admin: 03/14/17 09:17 Dose: 5,000 units Home Med (Sildenafil [Revatio]) 20 mg PO TID [facility] Home Med (Linaclotide [Linzess]) 290 mcg PO DAILY PRN PRN Reason: Constipation Home Med (Diclofenac Sodium [Voltaren]) 1 appl TOP QID PRN PRN Reason: Pain, Mild (1-3) Levothyroxine Sodium (Synthroid) 100 mcg PO DAILY@0630 [facility] Last Admin: 03/14/17 06:32 Dose: 100 mcg Magnesium Oxide (Mag-Ox) 800 mg PO DAILY [facility] Last Admin: 03/14/17 09:18 Dose: 800 mg Metoclopramide HCl (Reglan) 5 mg PO ACTID [facility] Last Admin: 03/14/17 06:32 Dose: 5 mg [id number] Ethyl Esters (Lovaza) 2 gm PO BID [facility] Last Admin: 03/14/17 09:18 Dose: 2 gm Polyethylene Glycol (Miralax) 17 gm PO ACD [facility] Last Admin: 03/13/17 17:02 Dose: Not Given Potassium Chloride (K-Dur 20 Meq Er Tab) 40 meq PO STAT STA Stop: 03/14/17 11:51 Rivastigmine (Exelon 4.6 Mg/24 Hr Patch) 3 patch TD DAILY [facility] Last Admin: 03/14/17 09:24 Dose: 3 patch Rosuvastatin Calcium (Crestor) 5 mg PO HS [facility] Last Admin: 03/13/17 21:15 Dose: 5 mg Spironolactone (Aldactone) 25 mg PO DAILY [facility] Last Admin: 03/14/17 09:18 Dose: 25 mg Tolterodine Tartrate (Detrol La) 4 mg PO DAILY [facility] Last Admin: 03/14/17 09:19 Dose: 4 mg - Labs Labs: 03/14/17 06:36 03/14/17 06:36 - Constitutional Appears: Non-toxic - Head Exam Head Exam: NORMOCEPHALIC - Eye Exam Eye Exam: Normal appearance Pupil Exam: NORMAL ACCOMODATION - ENT Exam ENT Exam: Mucous Membranes Moist - Respiratory Exam Respiratory Exam: Decreased Breath Sounds, NORMAL BREATHING PATTERN - Cardiovascular Exam Cardiovascular Exam: +S1, +S2, +S4 - GI/Abdominal Exam GI & Abdominal Exam: Normal Bowel Sounds - Rectal Exam Rectal Exam: NORMAL INSPECTION - Extremities Exam Extremities Exam: Normal Inspection - Back Exam Back Exam: NORMAL INSPECTION - Neurological Exam Neurological Exam: Abnormal Gait - Skin Skin Exam: Normal Color Assessment and Plan - Assessment and Plan (Free Text) Assessment: CHF COPD PH DM HYPOTENSION Plan: WILL D/C MAXIM
[2017-03-14] MEDS ORDERED: Potassium Chloride 20 mEq ER Tab PO STA (12:06)
--- NOTE | 2017-03-14 16:22 | CP.PCM.PN ---
<Remy López - Last Filed: 03/14/17 18:16> Subjective - Date & Time of Evaluation Date of Evaluation: 03/14/17 Time of Evaluation: 08:50 - Subjective Subjective: Patient was seen and examined at bedside in no acute distress and no complaints over night. Patient states her shortness of breath has improved, however requests for sidenafil to be restarted as this helps her breathe even better. Denies chest pain, shortness of breath, weakness, cough. Objective - Vital Signs/Intake and Output Vital Signs (last 24 hours): Temp Pulse Resp BP Pulse Ox 98.3 F 90 18 107/73 94 L 03/14/17 15:13 03/14/17 15:13 03/14/17 15:13 03/14/17 15:13 03/14/17 15:13 Intake and Output: 03/14/17 03/14/17 06:59 18:59 Intake Total 118 300 Output Total 0 Balance 118 300 - Medications Medications: Current Medications Aspirin (Ecotrin) 81 mg PO DAILY [facility] Last Admin: 03/14/17 09:18 Dose: 81 mg Diphenhydramine HCl (Benadryl) 25 mg PO HS [facility] Docusate Sodium (Colace) 200 mg PO HS [facility] Last Admin: 03/13/17 21:15 Dose: 200 mg Ergocalciferol (Drisdol 50,000 Intl Units Cap) 1 cap PO QWK [facility] Furosemide (Lasix) 20 mg IVP DAILY [facility] Last Admin: 03/14/17 09:17 Dose: 20 mg Heparin Sodium (Porcine) (Heparin) 5,000 units SC Q12 [facility] Last Admin: 03/14/17 09:17 Dose: 5,000 units Home Med (Sildenafil [Revatio]) 20 mg PO TID [facility] Home Med (Linaclotide [Linzess]) 290 mcg PO DAILY PRN PRN Reason: Constipation Home Med (Diclofenac Sodium [Voltaren]) 1 appl TOP QID PRN PRN Reason: Pain, Mild (1-3) Levothyroxine Sodium (Synthroid) 100 mcg PO DAILY@0630 [facility] Last Admin: 03/14/17 06:32 Dose: 100 mcg Magnesium Oxide (Mag-Ox) 800 mg PO DAILY [facility] Last Admin: 03/14/17 09:18 Dose: 800 mg Metoclopramide HCl (Reglan) 5 mg PO ACTID [facility] Last Admin: 03/14/17 12:00 Dose: 5 mg Ijdge-8-Ktli Ethyl Esters (Lovaza) 2 gm PO BID [facility] Last Admin: 03/14/17 09:18 Dose: 2 gm Polyethylene Glycol (Miralax) 17 gm PO ACD [facility] Last Admin: 03/13/17 17:02 Dose: Not Given Rivastigmine (Exelon 4.6 Mg/24 Hr Patch) 3 patch TD DAILY [facility] Last Admin: 03/14/17 09:24 Dose: 3 patch Rosuvastatin Calcium (Crestor) 5 mg PO HS [facility] Last Admin: 03/13/17 21:15 Dose: 5 mg Spironolactone (Aldactone) 25 mg PO BID [facility] Last Admin: 03/14/17 12:45 Dose: Not Given Tolterodine Tartrate (Detrol La) 4 mg PO DAILY [facility] Last Admin: 03/14/17 09:19 Dose: 4 mg - Labs Labs: 03/14/17 06:36 03/14/17 06:36 - Constitutional Appears: Non-toxic, No Acute Distress - Head Exam Head Exam: ATRAUMATIC, NORMAL INSPECTION, NORMOCEPHALIC - Eye Exam Eye Exam: EOMI. absent: Normal appearance (right eye defect) - ENT Exam ENT Exam: Mucous Membranes Moist, Normal Exam - Neck Exam Neck Exam: Normal Inspection - Respiratory Exam Respiratory Exam: Clear to Ausculation Bilateral - Cardiovascular Exam Cardiovascular Exam: REGULAR RHYTHM, +S1, +S2 - GI/Abdominal Exam GI & Abdominal Exam: Soft, Normal Bowel Sounds - Neurological Exam Neurological Exam: Alert, Awake, Oriented x3 - Psychiatric Exam Psychiatric exam: Normal Affect, Normal Mood - Skin Skin Exam: Normal Color, Warm Assessment and Plan - Assessment and Plan (Free Text) Assessment: Patient is a 81 y/o female who presented to [facility] with complaints of recurring shortness of breath and chest pain. Plan: 1. CHF NYHA Class III - 03/11 BNP 1210 - Shortness of breath and pitting edema improved - Will add Toprol XL 25mg qD and Digoxin 0.125 mg PO to medicine regimen 2. Dypsnea secondary to Pulmonary hypertension - restart sildenafil; not in hospital pharmacy, patient advised to bring from home Patient will be discharged to [place] today; medication usage explained to patient. <Rony Pendleton - Last Filed: 03/14/17 19:55> Objective - Vital Signs/Intake and Output Vital Signs (last 24 hours): Temp Pulse Resp BP Pulse Ox 98.3 F 90 18 107/73 94 L 03/14/17 15:13 03/14/17 15:13 03/14/17 15:13 03/14/17 15:13 03/14/17 15:13 Intake and Output: 03/14/17 03/15/17 18:59 06:59 Intake Total 300 300 Output Total 0 Balance 300 300 - Medications Medications: Current Medications Aspirin (Ecotrin) 81 mg PO DAILY [facility] Last Admin: 03/14/17 09:18 Dose: 81 mg Digoxin (Lanoxin) 0.125 mg PO DAILY@1800 [facility] Diphenhydramine HCl (Benadryl) 25 mg PO HS [facility] Docusate Sodium (Colace) 200 mg PO HS [facility] Last Admin: 03/13/17 21:15 Dose: 200 mg Ergocalciferol (Drisdol 50,000 Intl Units Cap) 1 cap PO QWK [facility] Furosemide (Lasix) 20 mg IVP DAILY [facility] Last Admin: 03/14/17 09:17 Dose: 20 mg Heparin Sodium (Porcine) (Heparin) 5,000 units SC Q12 [facility] Last Admin: 03/14/17 09:17 Dose: 5,000 units Home Med (Linaclotide [Linzess]) 290 mcg PO DAILY PRN PRN Reason: Constipation Home Med (Diclofenac Sodium [Voltaren]) 1 appl TOP QID PRN PRN Reason: Pain, Mild (1-3) Home Med (Sildenafil [Revatio]) 20 mg PO TID [facility] Levothyroxine Sodium (Synthroid) 100 mcg PO DAILY@0630 [facility] Last Admin: 03/14/17 06:32 Dose: 100 mcg Magnesium Oxide (Mag-Ox) 800 mg PO DAILY [facility] Last Admin: 03/14/17 09:18 Dose: 800 mg Metoclopramide HCl (Reglan) 5 mg PO ACTID [facility] Last Admin: 03/14/17 17:00 Dose: 5 mg Metoprolol Succinate (Toprol Xl) 12.5 mg PO DAILY [facility] Woean-7-[id number] Ethyl Esters (Lovaza) 2 gm PO BID [facility] Last Admin: 03/14/17 17:44 Dose: 2 gm Polyethylene Glycol (Miralax) 17 gm PO ACD [facility] Last Admin: 03/13/17 17:02 Dose: Not Given Rivastigmine (Exelon 4.6 Mg/24 Hr Patch) 3 patch TD DAILY [facility] Last Admin: 03/14/17 09:24 Dose: 3 patch Rosuvastatin Calcium (Crestor) 5 mg PO HS [facility] Last Admin: 03/13/17 21:15 Dose: 5 mg Spironolactone (Aldactone) 25 mg PO BID [facility] Last Admin: 03/14/17 17:45 Dose: 25 mg Tolterodine Tartrate (Detrol La) 4 mg PO DAILY [facility] Last Admin: 03/14/17 09:19 Dose: 4 mg - Labs Labs: 03/14/17 06:36 03/14/17 06:36 - Constitutional Appears: Well - Head Exam Head Exam: ATRAUMATIC, NORMAL INSPECTION, NORMOCEPHALIC - Eye Exam Eye Exam: EOMI, Normal appearance, PERRL Pupil Exam: NORMAL ACCOMODATION, PERRL - ENT Exam ENT Exam: Mucous Membranes Moist, Normal Exam - Neck Exam Neck Exam: Full ROM, Normal Inspection. absent: Lymphadenopathy - Respiratory Exam Respiratory Exam: Rales, NORMAL BREATHING PATTERN - Cardiovascular Exam Cardiovascular Exam: Irregular Rhythm, +S1, +S2, Murmur - GI/Abdominal Exam GI & Abdominal Exam: Soft, Normal Bowel Sounds. absent: Tenderness - Extremities Exam Extremities Exam: Full ROM, Normal Capillary Refill, Normal Inspection. absent : Joint Swelling, Pedal Edema - Back Exam Back Exam: NORMAL INSPECTION - Neurological Exam Neurological Exam: Alert, Awake, CN II-XII Intact, Normal Gait, Oriented x3 - Psychiatric Exam Psychiatric exam: Normal Affect, Normal Mood - Skin Skin Exam: Dry, Intact, Normal Color, Warm Assessment and Plan (1) CHF (congestive heart failure), NYHA class III Status: Acute (2) Dyspnea Status: Acute (3) A-fib Status: Chronic (4) Hypertension Status: Chronic (5) Pulmonary hypertension Status: Chronic (6) Fatigue Status: Acute (7) Hypokalemia Status: Acute Attending/Attestation - Attestation I have personally seen and examined this patient.: Yes I have fully participated in the care of the patient.: Yes I have reviewed all pertinent clinical information, including history, physical exam and plan: Yes
[2017-03-14] MEDS: POLYETHYLENE GLYCOL 3350 17 GM/Dose PACKET PO SCH (17:00)
--- NOTE | 2017-03-14 17:37 | PCM.HF ---
Heart Failure Core Measure Beta-Amor Prescribed: Metoprolol Succinate Aldosterone Antagonist Prescribed: Yes
--- NOTE | 2017-03-14 17:38 | CP.PCM.PN ---
Objective - Vital Signs/Intake and Output Vital Signs (last 24 hours): Temp Pulse Resp BP Pulse Ox 98.3 F 90 18 107/73 94 L 03/14/17 15:13 03/14/17 15:13 03/14/17 15:13 03/14/17 15:13 03/14/17 15:13 Intake and Output: 03/14/17 03/14/17 06:59 18:59 Intake Total 318 300 Output Total 0 Balance 318 300 - Medications Medications: Current Medications Aspirin (Ecotrin) 81 mg PO DAILY [facility] Last Admin: 03/14/17 09:18 Dose: 81 mg Digoxin (Lanoxin) 0.125 mg PO DAILY@1800 [facility] Diphenhydramine HCl (Benadryl) 25 mg PO HS [facility] Docusate Sodium (Colace) 200 mg PO HS [facility] Last Admin: 03/13/17 21:15 Dose: 200 mg Ergocalciferol (Drisdol 50,000 Intl Units Cap) 1 cap PO QWK [facility] Furosemide (Lasix) 20 mg IVP DAILY [facility] Last Admin: 03/14/17 09:17 Dose: 20 mg Heparin Sodium (Porcine) (Heparin) 5,000 units SC Q12 [facility] Last Admin: 03/14/17 09:17 Dose: 5,000 units Home Med (Linaclotide [Linzess]) 290 mcg PO DAILY PRN PRN Reason: Constipation Home Med (Diclofenac Sodium [Voltaren]) 1 appl TOP QID PRN PRN Reason: Pain, Mild (1-3) Home Med (Sildenafil [Revatio]) 20 mg PO TID [facility] Levothyroxine Sodium (Synthroid) 100 mcg PO DAILY@0630 [facility] Last Admin: 03/14/17 06:32 Dose: 100 mcg Magnesium Oxide (Mag-Ox) 800 mg PO DAILY [facility] Last Admin: 03/14/17 09:18 Dose: 800 mg Metoclopramide HCl (Reglan) 5 mg PO ACTID [facility] Last Admin: 03/14/17 12:00 Dose: 5 mg Metoprolol Succinate (Toprol Xl) 12.5 mg PO DAILY [facility] Zbeor-5-Mafu Ethyl Esters (Lovaza) 2 gm PO BID [facility] Last Admin: 03/14/17 09:18 Dose: 2 gm Polyethylene Glycol (Miralax) 17 gm PO ACD [facility] Last Admin: 03/13/17 17:02 Dose: Not Given Rivastigmine (Exelon 4.6 Mg/24 Hr Patch) 3 patch TD DAILY [facility] Last Admin: 03/14/17 09:24 Dose: 3 patch Rosuvastatin Calcium (Crestor) 5 mg PO HS [facility] Last Admin: 03/13/17 21:15 Dose: 5 mg Spironolactone (Aldactone) 25 mg PO BID [facility] Last Admin: 03/14/17 12:45 Dose: Not Given Tolterodine Tartrate (Detrol La) 4 mg PO DAILY [facility] Last Admin: 03/14/17 09:19 Dose: 4 mg - Labs Labs: 03/14/17 06:36 03/14/17 06:36 Assessment and Plan - Assessment and Plan (Free Text) Assessment: Patient is seen and examined.
[2017-03-14] MEDS ORDERED: Digoxin 125 mcg (0.125 mg) Tab PO SCH (18:00)
[2017-03-14] MEDS: Metoprolol Succinate 12.5 mg XL PO SCH (18:00)
--- NOTE | 2017-03-14 19:54 | CP.PCM.PN ---
Subjective - Date & Time of Evaluation Date of Evaluation: 03/13/17 Time of Evaluation: 17:00 - Subjective Subjective: sx improving Objective - Vital Signs/Intake and Output Vital Signs (last 24 hours): Temp Pulse Resp BP Pulse Ox 98.3 F 90 18 107/73 94 L 03/14/17 15:13 03/14/17 15:13 03/14/17 15:13 03/14/17 15:13 03/14/17 15:13 Intake and Output: 03/14/17 03/15/17 18:59 06:59 Intake Total 300 300 Output Total 0 Balance 300 300 - Medications Medications: Current Medications Aspirin (Ecotrin) 81 mg PO DAILY [facility] Last Admin: 03/14/17 09:18 Dose: 81 mg Digoxin (Lanoxin) 0.125 mg PO DAILY@1800 [facility] Diphenhydramine HCl (Benadryl) 25 mg PO HS [facility] Docusate Sodium (Colace) 200 mg PO HS [facility] Last Admin: 03/13/17 21:15 Dose: 200 mg Ergocalciferol (Drisdol 50,000 Intl Units Cap) 1 cap PO QWK [facility] Furosemide (Lasix) 20 mg IVP DAILY [facility] Last Admin: 03/14/17 09:17 Dose: 20 mg Heparin Sodium (Porcine) (Heparin) 5,000 units SC Q12 [facility] Last Admin: 03/14/17 09:17 Dose: 5,000 units Home Med (Linaclotide [Linzess]) 290 mcg PO DAILY PRN PRN Reason: Constipation Home Med (Diclofenac Sodium [Voltaren]) 1 appl TOP QID PRN PRN Reason: Pain, Mild (1-3) Home Med (Sildenafil [Revatio]) 20 mg PO TID [facility] Levothyroxine Sodium (Synthroid) 100 mcg PO DAILY@0630 [facility] Last Admin: 03/14/17 06:32 Dose: 100 mcg Magnesium Oxide (Mag-Ox) 800 mg PO DAILY [facility] Last Admin: 03/14/17 09:18 Dose: 800 mg Metoclopramide HCl (Reglan) 5 mg PO ACTID [facility] Last Admin: 03/14/17 17:00 Dose: 5 mg Metoprolol Succinate (Toprol Xl) 12.5 mg PO DAILY [facility] [id number] Ethyl Esters (Lovaza) 2 gm PO BID [facility] Last Admin: 03/14/17 17:44 Dose: 2 gm Polyethylene Glycol (Miralax) 17 gm PO ACD [facility] Last Admin: 03/13/17 17:02 Dose: Not Given Rivastigmine (Exelon 4.6 Mg/24 Hr Patch) 3 patch TD DAILY [facility] Last Admin: 03/14/17 09:24 Dose: 3 patch Rosuvastatin Calcium (Crestor) 5 mg PO HS [facility] Last Admin: 03/13/17 21:15 Dose: 5 mg Spironolactone (Aldactone) 25 mg PO BID [facility] Last Admin: 03/14/17 17:45 Dose: 25 mg Tolterodine Tartrate (Detrol La) 4 mg PO DAILY [facility] Last Admin: 03/14/17 09:19 Dose: 4 mg - Labs Labs: 03/14/17 06:36 03/14/17 06:36 - Constitutional Appears: Well - Head Exam Head Exam: ATRAUMATIC, NORMAL INSPECTION, NORMOCEPHALIC - Eye Exam Eye Exam: EOMI, Normal appearance, PERRL Pupil Exam: NORMAL ACCOMODATION, PERRL - ENT Exam ENT Exam: Mucous Membranes Moist, Normal Exam - Neck Exam Neck Exam: Full ROM, Normal Inspection. absent: Lymphadenopathy - Respiratory Exam Respiratory Exam: Rales, NORMAL BREATHING PATTERN - Cardiovascular Exam Cardiovascular Exam: Irregular Rhythm, REGULAR RHYTHM, +S1, +S2, Murmur - GI/Abdominal Exam GI & Abdominal Exam: Soft, Normal Bowel Sounds. absent: Tenderness - Extremities Exam Extremities Exam: Full ROM, Normal Capillary Refill, Normal Inspection. absent : Joint Swelling, Pedal Edema - Back Exam Back Exam: NORMAL INSPECTION - Neurological Exam Neurological Exam: Alert, Awake, CN II-XII Intact, Normal Gait, Oriented x3 - Psychiatric Exam Psychiatric exam: Normal Affect, Normal Mood - Skin Skin Exam: Dry, Intact, Normal Color, Warm Assessment and Plan (1) CHF (congestive heart failure), NYHA class III Status: Acute (2) Dyspnea Status: Acute (3) A-fib Status: Chronic (4) Hypertension Status: Chronic (5) Pulmonary hypertension Status: Chronic (6) Fatigue Status: Acute (7) Hypokalemia Status: Acute
[2017-03-14 21:39] VITALS: PULSE 87
[2017-03-14] MEDS ORDERED: DiphenhydrAMINE 12.5 mg/5 ml LIQ UD (5 ml) PO SCH (22:00)
[2017-03-15 01:57] VITALS: RESP 20
[2017-03-15] MEDS: Levothyroxine 100 MCG TAB PO SCH (06:35)
[2017-03-15 07:45] VITALS: PULSE 107; TEMP 97.7; O2SAT 99
[2017-03-15] MEDS: LIPASE/PROTEASE/AMYLASE 4,200 U ECC PO SCH (09:57)
[2017-03-15] MEDS: Metoprolol Succinate 12.5 mg XL PO SCH (09:58)
[2017-03-15] MEDS: Omega-3-Acid Ethyl Esters 1 GM Cap PO SCH ×2 (09:58→09:59)
[2017-03-15] MEDS: Magnesium Oxide 400 mg Tab UD PO SCH (10:00)
--- NOTE | 2017-03-15 10:37 | CP.PCM.PN ---
Subjective - Date & Time of Evaluation Date of Evaluation: 03/15/17 Time of Evaluation: 10:34 - Subjective Subjective: pt couldnot leave last night was sob chest tightness cold acking today less discomfort Objective - Vital Signs/Intake and Output Vital Signs (last 24 hours): Temp Pulse Resp BP Pulse Ox 97.7 F 107 H 20 133/85 99 03/15/17 07:44 03/15/17 07:44 03/15/17 07:44 03/15/17 07:44 03/15/17 07:44 Intake and Output: 03/15/17 03/15/17 06:59 18:59 Intake Total 600 Balance 600 - Medications Medications: Current Medications Aspirin (Ecotrin) 81 mg PO DAILY [facility] Last Admin: 03/15/17 10:01 Dose: 81 mg Digoxin (Lanoxin) 0.125 mg PO DAILY@1800 [facility] Last Admin: 03/14/17 18:05 Dose: 0.125 mg Diphenhydramine HCl (Benadryl) 25 mg PO HS [facility] Last Admin: 03/14/17 22:34 Dose: 25 mg Docusate Sodium (Colace) 200 mg PO HS [facility] Last Admin: 03/14/17 21:43 Dose: 200 mg Ergocalciferol (Drisdol 50,000 Intl Units Cap) 1 cap PO QWK [facility] Furosemide (Lasix) 20 mg IVP DAILY [facility] Last Admin: 03/14/17 09:17 Dose: 20 mg Furosemide (Lasix) 40 mg PO DAILY [facility] Heparin Sodium (Porcine) (Heparin) 5,000 units SC Q12 [facility] Last Admin: 03/15/17 10:11 Dose: 5,000 units Home Med (Linaclotide [Linzess]) 290 mcg PO DAILY PRN PRN Reason: Constipation Home Med (Diclofenac Sodium [Voltaren]) 1 appl TOP QID PRN PRN Reason: Pain, Mild (1-3) Home Med (Sildenafil [Revatio]) 20 mg PO TID [facility] Levothyroxine Sodium (Synthroid) 100 mcg PO DAILY@0630 [facility] Last Admin: 03/15/17 06:35 Dose: 100 mcg Magnesium Oxide (Mag-Ox) 800 mg PO DAILY [facility] Last Admin: 03/15/17 10:00 Dose: 800 mg Metoclopramide HCl (Reglan) 5 mg PO ACTID [facility] Last Admin: 03/15/17 06:35 Dose: 5 mg Metoprolol Succinate (Toprol Xl) 12.5 mg PO DAILY [facility] Last Admin: 03/15/17 09:58 Dose: 12.5 mg Jsfgm-1-[id number] Ethyl Esters (Lovaza) 2 gm PO BID [facility] Last Admin: 03/15/17 09:59 Dose: 2 gm Polyethylene Glycol (Miralax) 17 gm PO ACD [facility] Last Admin: 03/14/17 17:00 Dose: Not Given Rivastigmine (Exelon 4.6 Mg/24 Hr Patch) 3 patch TD DAILY [facility] Last Admin: 03/15/17 10:01 Dose: 3 patch Rosuvastatin Calcium (Crestor) 5 mg PO HS [facility] Last Admin: 03/14/17 21:37 Dose: 5 mg Spironolactone (Aldactone) 25 mg PO BID [facility] Last Admin: 03/15/17 10:00 Dose: 25 mg Tolterodine Tartrate (Detrol La) 4 mg PO DAILY [facility] Last Admin: 03/14/17 09:19 Dose: 4 mg - Labs Labs: 03/14/17 06:36 03/14/17 06:36 - Constitutional Appears: Non-toxic - Head Exam Head Exam: NORMAL INSPECTION - Eye Exam Eye Exam: Normal appearance Pupil Exam: NORMAL ACCOMODATION - ENT Exam ENT Exam: Mucous Membranes Moist - Neck Exam Neck Exam: Full ROM - Respiratory Exam Respiratory Exam: NORMAL BREATHING PATTERN - Cardiovascular Exam Cardiovascular Exam: REGULAR RHYTHM - GI/Abdominal Exam GI & Abdominal Exam: Normal Bowel Sounds - Skin Skin Exam: Normal Color Assessment and Plan - Assessment and Plan (Free Text) Assessment: copd ph aerhritis generalised weekness Plan: macrina
[2017-03-15 11:05] VITALS: BP 130/80
--- NOTE | 2017-03-15 12:25 | CP.PCM.PN ---
Subjective - Date & Time of Evaluation Date of Evaluation: 03/15/17 Time of Evaluation: 10:00 - Subjective Subjective: feeling fine back to baseline swelling resolved being transferred to Rehab today Objective - Vital Signs/Intake and Output Vital Signs (last 24 hours): Temp Pulse Resp BP Pulse Ox 97.7 F 107 H 20 130/80 99 03/15/17 07:44 03/15/17 07:44 03/15/17 07:44 03/15/17 11:04 03/15/17 07:44 Intake and Output: 03/15/17 03/15/17 06:59 18:59 Intake Total 600 Balance 600 - Labs Labs: 03/14/17 06:36 03/14/17 06:36 - Constitutional Appears: Well - Head Exam Head Exam: ATRAUMATIC, NORMAL INSPECTION, NORMOCEPHALIC - Eye Exam Eye Exam: EOMI, Normal appearance, PERRL Pupil Exam: NORMAL ACCOMODATION, PERRL - ENT Exam ENT Exam: Mucous Membranes Moist, Normal Exam - Neck Exam Neck Exam: Full ROM, Normal Inspection. absent: Lymphadenopathy - Respiratory Exam Respiratory Exam: Clear to Ausculation Bilateral, NORMAL BREATHING PATTERN - Cardiovascular Exam Cardiovascular Exam: REGULAR RHYTHM, +S1, +S2, Murmur - GI/Abdominal Exam GI & Abdominal Exam: Soft, Normal Bowel Sounds. absent: Tenderness - Extremities Exam Extremities Exam: Full ROM, Normal Capillary Refill, Normal Inspection, Pedal Edema. absent: Joint Swelling - Back Exam Back Exam: NORMAL INSPECTION - Neurological Exam Neurological Exam: Alert, Awake, CN II-XII Intact, Normal Gait, Oriented x3 - Psychiatric Exam Psychiatric exam: Normal Affect, Normal Mood - Skin Skin Exam: Dry, Intact, Normal Color, Warm Assessment and Plan (1) CHF (congestive heart failure), NYHA class III Status: Acute (2) Dyspnea Status: Acute (3) A-fib Status: Chronic (4) Hypertension Status: Chronic (5) Pulmonary hypertension Status: Chronic (6) Fatigue Status: Acute (7) Hypokalemia Status: Acute
[2017-03-18] MEDS ORDERED: Ergocalciferol 50,000 Intl Units Cap PO SCH (10:00)
== END 2017-03-15 11:20 | disposition home or self-care (01) | DRG 292 ==
LOC: C.ER 11:17 → C.9E 13:33 → C.6T 14:02 → OBSVTOIN 03-13 12:50
PROVIDERS: ADMIT Internal Medicine; ATTEND Internal Medicine
DX: I13.0 Hypertensive heart and chronic kidney disease with heart failure and stage 1 through stage 4 chronic kidney disease, or unspecified chronic kidney disease (principal); I50.32 Chronic diastolic (congestive) heart failure; I27.0 Primary pulmonary hypertension; F03.90 Unspecified dementia, unspecified severity, without behavioral disturbance, psychotic disturbance, mood disturbance, and anxiety; I48.91 Unspecified atrial fibrillation; J44.9 Chronic obstructive pulmonary disease, unspecified; M19.90 Unspecified osteoarthritis, unspecified site; I25.10 Atherosclerotic heart disease of native coronary artery without angina pectoris; N18.9 Chronic kidney disease, unspecified; E87.6 Hypokalemia; E78.5 Hyperlipidemia, unspecified

== ENCOUNTER 2017-04-07 14:03 | Observation (INO) | payer MEDICARE, MEDICAID ==
[2017-04-07 14:04] VITALS: PULSE 87; BMI 35.6
[2017-04-07] MEDS ORDERED: Aspirin 325 mg EC Tablets PO STA (14:33)
--- NOTE | 2017-04-07 14:34 | C.PDOC ---
History Of Present Illness Patient is a 81 y/o M with complex medical history, see below for further, including copd, pulmonary htn, non-obstructive cad, htn, afib, presenting with chest pain. She reports that this has been an issue for 4 days but worsened today PMD: Randa Perry Time Seen by Provider: 04/07/17 14:23 Chief Complaint (Nursing): Chest Pain Past Medical History Vital Signs: Last Vital Signs Temp 98.1 F 04/07/17 17:30 Pulse 90 04/07/17 17:30 Resp 18 04/07/17 17:30 BP 138/80 04/07/17 17:30 Pulse Ox 100 04/07/17 17:30 - Medical History PMH: Anxiety, Arthritis, Asthma, Atrial Fibrillation, Bipolar Disorder, CAD, Cardia Arrhythmia (a fib), CHF, COPD, CVA, Dementia, Depression, Diabetes, Diverticulitis, Fractures (left hip), Gastritis, Hiatal Hernia, HTN, Hypercholesterolemia, Hyperlipidemia, Hypothyroidism, Osteoporosis, Peripheral Edema, Chronic Kidney Disease Surgical History: Cholecystectomy (documented in history but patient does not acknowledge), - [facility] Procedures CORONAR ARTERIOGR-2 CATH (08/24/12) ESOPHAGOGASTRODUODENOSCOPY [EGD] W/CLOSED BIOPSY (10/03/13) EXCISION OF DUODENUM, ENDO, DIAGN (11/02/15) EXCISION OF STOMACH, ENDO, DIAGN (11/02/15) EXERCISE TRMT MUSCULOSK LOW BACK/LE W ASSIST EQUIP (04/26/16) FLUOROSCOPY OF MULT COR ART USING L OSM CONTRAST (03/04/17) FLUOROSCOPY OF RIGHT AND LEFT HEART USING L OSM CONTRAST (03/04/17) GAIT TRAINING/AMBULAT TREATMENT USING ASSIST EQUIPMENT (04/26/16) GAIT TRAINING/FUNCTIONAL AMBULATION TREATMENT (06/19/15) HOME MANAGEMENT TREATMENT (06/19/15) HOME MANAGEMENT TREATMENT USING ASSIST EQUIPMENT (04/26/16) INTRODUCE OF OTH THERAP SUBST INTO RESP TRACT, VIA OPENING (12/23/16) INTRODUCTION OF ANTI-INFLAM INTO PERIPH VEIN, PERC APPROACH (04/26/16) INTRODUCTION OF ANTI-INFLAM INTO RESP TRACT, VIA OPENING (04/26/16) INTRODUCTION OF SERUM/TOX/VACCINE INTO MUSCLE, PERC APPROACH (03/08/16) LT HEART ANGIOCARDIOGRAM (08/24/12) MEASURE CARDIAC SAMPL & PRESSURE, BILATERAL, PERC (03/04/17) RT/LEFT HEART CARD CATH (08/24/12) THERAPEUTIC EXERCISE TREATMENT OF MUSCULOSK WHOLE (06/19/15) VACCINATION NEC (10/03/13) Family History: States: Unknown Family Hx - Social History Hx Tobacco Use: No Hx Alcohol Use: No Hx Substance Use: No - Immunization History Hx Tetanus Toxoid Vaccination: No Hx Influenza Vaccination: Yes Hx Pneumococcal Vaccination: Yes Review Of Systems Constitutional: Negative for: Fever, Chills Cardiovascular: Positive for: Chest Pain, Palpitations. Negative for: Edema Respiratory: Positive for: Cough, Shortness of Breath, SOB with Excertion. Negative for: Wheezing Gastrointestinal: Negative for: Nausea, Vomiting, Abdominal Pain, Constipation Neurological: Negative for: Weakness, Numbness, Altered Mental Status, Headache Physical Exam - Physical Exam Appears: Well, Non-toxic, No Acute Distress, Other (speaking in complete sentences, no tachypnea) Skin: Normal Color, Warm, Dry Head: Atraumatic, Normacephalic Eye(s): bilateral: Normal Inspection, PERRL, EOMI Chest: Symmetrical Cardiovascular: Other (irregularly irregular) Respiratory: Normal Breath Sounds Gastrointestinal/Abdominal: Soft, No Tenderness, No Mass Back: Normal Inspection Extremity: No Pedal Edema ED Course And Treatment - Laboratory Results Result Diagrams: 04/07/17 15:22 04/07/17 15:22 O2 Sat by Pulse Oximetry: 98 Medical Decision Making Medical Decision Making: EKG shows afib at 91bpm with normal intervals and no ST changes. Trop x 1 negative. BNP elevated. Lasix and aspirin ordered. Refusing cxray 4:41PM Now reporting chest pain. Repeat ekg ordered and shows afib at 97bpm with no acute ST changes. Now allowing cxray which shows cardiomegaly and pulmonary venous congestion. Spoke to PMD Dr. Perry and will transfer to tele observation. Disposition - Disposition Disposition: HOSPITALIZED Disposition Time: 16:41 Condition: FAIR - Clinical Impression Clinical Impression: Shortness of breath, Chest discomfort, Elevated brain natriuretic peptide (BNP ) level
[2017-04-07] MEDS ORDERED: Aspirin 325 mg EC Tablets PO ONE (15:13)
[2017-04-07 15:28] LABS: BASO % 0.7 % (0.0-2.0); EOS # 0.1 K/uL (0.0-0.7); EOS % 1.1 % (0.0-4.0); HEMATOCRIT 43.6 % (34.0-47.0); LYMPH # 2.7 K/uL (1.0-4.3); LYMPH % 47.5 % (20.0-40.0); MEAN CELL VOLUME 91.5 fL (81.0-99.0); MEAN CORPUSCULAR HEMOGLOBIN 28.7 pg (27.0-31.0); MEAN CORPUSCULAR HGB CONC 31.3 g/dL (33.0-37.0); MEAN PLATELET VOLUME 9.3 fL (7.2-11.7); MONO # 0.6 K/uL (0.0-0.8); MONO % 10.8 % (0.0-10.0); NRBC % 0.1 % (0.0-2.0); RED CELL DISTRIBUTION WIDTH 13.7 % (11.5-14.5); WHITE BLOOD COUNT 5.6 K/uL (4.8-10.8)
[2017-04-07 15:46] LABS: ALB/GLOB RATIO 1.1 (1.0-2.1); ALKALINE PHOSPHATASE 74 U/L (38-126); ALT/SGPT 46 U/L (9-52); AST/SGOT 28 U/L (14-36); BILIRUBIN,TOTAL 0.4 mg/dL (0.2-1.3); BLOOD UREA NITROGEN 22 mg/dL (7-17); CALCIUM 8.9 mg/dl (8.6-10.4); CHLORIDE 98 mmol/L (98-107); GFR AFRICAN-AMERICAN > 60; GLUCOSE,RANDOM 95 mg/dL (65-105); POTASSIUM 3.7 mmol/L (3.6-5.2); SODIUM 139 mmol/L (132-148); TOTAL PROTEIN 7.2 g/dL (6.3-8.3)
[2017-04-07 15:50] LABS: CARBON DIOXIDE 39 mmol/L (22-30)
--- NOTE | 2017-04-07 18:13 | RAD ---
PROCEDURE: CHEST RADIOGRAPH, 1 VIEW HISTORY: chest pain COMPARISON: 03/11/2017. FINDINGS: LUNGS: Clear. PLEURA: No pneumothorax or pleural fluid seen. CARDIOVASCULAR: Cardiomegaly. No evidence of acute, significant cardiovascular disease. OSSEOUS STRUCTURES: No significant abnormalities. VISUALIZED UPPER ABDOMEN: Normal. OTHER FINDINGS: None. IMPRESSION: No active disease. No acute/significant interval changes.
[2017-04-07] MEDS ORDERED: Albuterol HFA 90 mcg/actuation (8 g) IH PRN (22:06)
[2017-04-07] MEDS ORDERED: Fluticasone-Salmeterol 250-50mcg Diskus IH SCH (22:15)
[2017-04-08 04:26] VITALS: RESP 20
[2017-04-08] MEDS ORDERED: Levothyroxine 100 MCG TAB PO SCH (06:30)
[2017-04-08 08:54] VITALS: BP 122/76; PULSE 79; TEMP 98.2; O2SAT 95
[2017-04-08] MEDS: Metoprolol Succinate 25 mg XL Tab PO SCH ×2 (09:14→09:27)
[2017-04-08] MEDS ORDERED: Magnesium Oxide 400 mg Tab UD PO SCH (10:00)
[2017-04-08] MEDS ORDERED: Tolterodine 4 mg ER Cap PO SCH (10:00)
[2017-04-08] MEDS ORDERED: Pantoprazole 40 mg EC Tab PO SCH (10:00)
--- NOTE | 2017-04-08 11:14 | CP.PCM.HP ---
History of Present Illness - History of Present Illness History of Present Illness: chest pain sob Present on Admission - Present on Admission Any Indicators Present on Admission: No Review of Systems - Review of Systems Systems not reviewed;Unavailable: Acuity of Condition - Constitutional Constitutional: Fatigue - EENT Eyes: As Per HPI Ears: As Per HPI Nose/Mouth/Throat: As Per HPI - Breasts Breasts: As Per HPI - Cardiovascular Cardiovascular: Chest Pain at Rest, Dyspnea, Dyspnea on Exertion, Irregular Heart Rhythm - Respiratory Respiratory: Cough, Dyspnea on Exertion - Gastrointestinal Gastrointestinal: As Per HPI - Genitourinary Genitourinary: As Per HPI - Reproductive: Female Reproductive:Female: As Per HPI - Menstruation Menstruation: As Per HPI - Musculoskeletal Musculoskeletal: Arthralgias - Integumentary Integumentary: As Per HPI - Neurological Neurological: As Per HPI - Psychiatric Psychiatric: As Per HPI - Endocrine Endocrine: Cold Intolorance - Hematologic/Lymphatic Hematologic: As Per HPI Past Patient History - Infectious Disease Hx of Infectious Diseases: None - Past Medical History & Family History Past Medical History?: Yes - Past Social History Smoking Status: Never Smoked - CARDIAC Hx Cardiac Disorders: Yes Hx Atrial Fibrillation: Yes Hx Cardia Arrhythmia: Yes (a fib) Hx Congestive Heart Failure: Yes Hx Hypercholesterolemia: Yes Hx Hypertension: Yes Hx Peripheral Edema: Yes - PULMONARY Hx Respiratory Disorders: Yes Hx Asthma: Yes Hx Chronic Obstructive Pulmonary Disease (COPD): Yes - NEUROLOGICAL Hx Neurological Disorder: Yes Hx Dementia: Yes - HEENT Hx HEENT Problems: Yes 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) Hx Glaucoma: Yes (right eye) - RENAL Hx Chronic Kidney Disease: Yes - ENDOCRINE/METABOLIC Hx Endocrine Disorders: Yes Hx Hypothyroidism: Yes - INTEGUMENTARY Hx Dermatological Problems: No - MUSCULOSKELETAL/RHEUMATOLOGICAL Hx Musculoskeletal Disorders: Yes Hx Arthritis: Yes Hx Falls: No Hx Fractures: Yes (left hip) Hx Osteoporosis: Yes - GASTROINTESTINAL Hx Gastrointestinal Disorders: Yes Hx Diverticulitis: Yes Hx Gastritis: Yes - GENITOURINARY/GYNECOLOGICAL Hx Genitourinary Disorders: Yes Hx Incontinence: Yes - PSYCHIATRIC Hx Psychophysiologic Disorder: Yes Hx Anxiety: Yes Hx Bipolar Disorder: Yes Hx Depression: Yes Hx Substance Use: No - SURGICAL HISTORY Hx Surgeries: Yes Hx Cholecystectomy: Yes (documented in history but patient does not acknowledge) - ANESTHESIA Hx Anesthesia: Yes Hx Anesthesia Reactions: No Hx Malignant Hyperthermia: No Meds Allergies/Adverse Reactions: Allergies Allergy/AdvReac Type Severity Reaction Status Date / Time No Known Allergies Allergy Verified 04/07/17 14:26 Physical Exam - Constitutional Appears: Non-toxic, No Acute Distress - Head Exam Head Exam: NORMAL INSPECTION - Eye Exam Eye Exam: Normal appearance Pupil Exam: NORMAL ACCOMODATION - ENT Exam ENT Exam: Mucous Membranes Moist - Neck Exam Neck exam: Positive for: Normal Inspection - Respiratory Exam Respiratory Exam: Decreased Breath Sounds, Rales - Cardiovascular Exam Cardiovascular Exam: Irregular Rhythm, +S1, +S2, +S4 - GI/Abdominal Exam GI & Abdominal Exam: Normal Bowel Sounds - Rectal Exam Rectal Exam: NORMAL INSPECTION - Exam Exam: NORMAL INSPECTION - Extremities Exam Extremities exam: Positive for: normal inspection - Back Exam Back exam: NORMAL INSPECTION - Neurological Exam Neurological exam: Alert - Psychiatric Exam Psychiatric exam: Normal Mood - Skin Skin Exam: Normal Color Results - Vital Signs Recent Vital Signs: Last Vital Signs Temp 98.2 F 04/08/17 08:50 Pulse 79 04/08/17 08:50 Resp 20 04/08/17 08:50 BP 122/76 04/08/17 09:15 Pulse Ox 95 04/08/17 08:50 - Labs Result Diagrams: 04/07/17 15:22 04/07/17 15:22 Labs: Laboratory Results - last 24 hr 04/07/17 04/07/17 04/07/17 15:22 15:22 21:20 WBC 5.6 RBC 4.77 Hgb 13.7 Hct 43.6 MCV 91.5 MCH 28.7 MCHC 31.3 L RDW 13.7 Plt Count 161 MPV 9.3 Neut % (Auto) 39.9 L Lymph % (Auto) 47.5 H Crisp % (Auto) 10.8 H Eos % (Auto) 1.1 Baso % (Auto) 0.7 Neut # 2.2 Lymph # 2.7 Crisp # 0.6 Eos # 0.1 Baso # 0.0 Sodium 139 Potassium 3.7 Chloride 98 Carbon Dioxide 39 H Anion Gap 6 L BUN 22 H Creatinine 0.7 Est GFR ( Amer) > 60 Est GFR (Non-Af Amer) > 60 POC Glucose (mg/dL) 119 H Random Glucose 95 Calcium 8.9 Total Bilirubin 0.4 AST 28 ALT 46 Alkaline Phosphatase 74 Troponin I 0.0130 NT-Pro-B Natriuret Pep 2640 H Total Protein 7.2 Albumin 3.7 Globulin 3.5 Albumin/Globulin Ratio 1.1 04/08/17 04/08/17 06:25 06:29 WBC RBC Hgb Hct MCV MCH MCHC RDW Plt Count MPV Neut % (Auto) Lymph % (Auto) Crisp % (Auto) Eos % (Auto) Baso % (Auto) Neut # Lymph # Crisp # Eos # Baso # Sodium Potassium Chloride Carbon Dioxide Anion Gap BUN Creatinine Est GFR ( Amer) Est GFR (Non-Af Amer) POC Glucose (mg/dL) 102 Random Glucose Calcium Total Bilirubin AST ALT Alkaline Phosphatase Troponin I < 0.0120 NT-Pro-B Natriuret Pep Total Protein Albumin Globulin Albumin/Globulin Ratio Assessment & Plan - Assessment and Plan (Free Text) Assessment: ac decompansated ht f Decision To Admit - Pt Status Changed To: Hospital Disposition Of: Observation - . Bed Request Type: Telemetry (pt will d/c tonight)
[2017-04-08] MEDS: LIPASE/PROTEASE/AMYLASE 4,200 U ECC PO SCH ×2 (12:12→15:17)
--- NOTE | 2017-04-08 15:36 | CP.PCM.CON ---
History of Present Illness - History of Present Illness History of Present Illness: CHF / Chest pain HPI: Review of Systems - Review of Systems All systems: reviewed and no additional remarkable complaints except - Constitutional Constitutional: As Per HPI - EENT Eyes: As Per HPI Ears: As Per HPI Nose/Mouth/Throat: As Per HPI - Breasts Breasts: As Per HPI - Cardiovascular Cardiovascular: As Per HPI, Chest Pain - Respiratory Respiratory: As Per HPI - Gastrointestinal Gastrointestinal: As Per HPI - Genitourinary Genitourinary: As Per HPI - Reproductive: Female Reproductive:Female: As Per HPI - Menstruation Menstruation: As Per HPI - Musculoskeletal Musculoskeletal: As Per HPI - Integumentary Integumentary: As Per HPI - Neurological Neurological: As Per HPI - Psychiatric Psychiatric: As Per HPI - Endocrine Endocrine: As Per HPI - Hematologic/Lymphatic Hematologic: As Per HPI Past Patient History - Infectious Disease Hx of Infectious Diseases: None - Past Medical History & Family History Past Medical History?: Yes - Past Social History Smoking Status: Never Smoked - CARDIAC Hx Cardiac Disorders: Yes Hx Atrial Fibrillation: Yes Hx Cardia Arrhythmia: Yes (a fib) Hx Congestive Heart Failure: Yes Hx Hypercholesterolemia: Yes Hx Hypertension: Yes Hx Peripheral Edema: Yes - PULMONARY Hx Respiratory Disorders: Yes Hx Asthma: Yes Hx Chronic Obstructive Pulmonary Disease (COPD): Yes - NEUROLOGICAL Hx Neurological Disorder: Yes Hx Dementia: Yes - HEENT Hx HEENT Problems: Yes 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) Hx Glaucoma: Yes (right eye) - RENAL Hx Chronic Kidney Disease: Yes - ENDOCRINE/METABOLIC Hx Endocrine Disorders: Yes Hx Hypothyroidism: Yes - INTEGUMENTARY Hx Dermatological Problems: No - MUSCULOSKELETAL/RHEUMATOLOGICAL Hx Musculoskeletal Disorders: Yes Hx Arthritis: Yes Hx Falls: No Hx Fractures: Yes (left hip) Hx Osteoporosis: Yes - GASTROINTESTINAL Hx Gastrointestinal Disorders: Yes Hx Diverticulitis: Yes Hx Gastritis: Yes - GENITOURINARY/GYNECOLOGICAL Hx Genitourinary Disorders: Yes Hx Incontinence: Yes - PSYCHIATRIC Hx Psychophysiologic Disorder: Yes Hx Anxiety: Yes Hx Bipolar Disorder: Yes Hx Depression: Yes Hx Substance Use: No - SURGICAL HISTORY Hx Surgeries: Yes Hx Cholecystectomy: Yes (documented in history but patient does not acknowledge) - ANESTHESIA Hx Anesthesia: Yes Hx Anesthesia Reactions: No Hx Malignant Hyperthermia: No Meds Allergies/Adverse Reactions: Allergies Allergy/AdvReac Type Severity Reaction Status Date / Time No Known Allergies Allergy Verified 04/07/17 14:26 Physical Exam - Constitutional Appears: Well - Head Exam Head Exam: ATRAUMATIC, NORMAL INSPECTION, NORMOCEPHALIC - Eye Exam Eye Exam: EOMI, Normal appearance, PERRL Pupil Exam: NORMAL ACCOMODATION, PERRL - ENT Exam ENT Exam: Mucous Membranes Moist, Normal Exam - Neck Exam Neck exam: Positive for: Normal Inspection - Respiratory Exam Respiratory Exam: Clear to Auscultation Bilateral, Rales, NORMAL BREATHING PATTERN - Cardiovascular Exam Cardiovascular Exam: Irregular Rhythm, RRR, +S1, +S2, Systolic Murmur - GI/Abdominal Exam GI & Abdominal Exam: Normal Bowel Sounds, Soft. absent: Tenderness - Extremities Exam Extremities exam: Positive for: normal inspection - Back Exam Back exam: NORMAL INSPECTION - Neurological Exam Neurological exam: Alert, CN II-XII Intact, Normal Gait, Oriented x3, Reflexes Normal - Psychiatric Exam Psychiatric exam: Normal Affect, Normal Mood - Skin Skin Exam: Dry, Intact, Normal Color, Warm Results - Vital Signs Recent Vital Signs: Last Vital Signs Temp 98.2 F 04/08/17 08:50 Pulse 79 04/08/17 08:50 Resp 20 04/08/17 08:50 BP 122/76 04/08/17 09:15 Pulse Ox 95 04/08/17 08:50 - Labs Result Diagrams: 04/07/17 15:22 04/07/17 15:22 Labs: Laboratory Results - last 24 hr 04/07/17 04/07/17 04/08/17 15:22 21:20 06:25 Sodium 139 Potassium 3.7 Chloride 98 Carbon Dioxide 39 H Anion Gap 6 L BUN 22 H Creatinine 0.7 Est GFR ( Amer) > 60 Est GFR (Non-Af Amer) > 60 POC Glucose (mg/dL) 119 H 102 Random Glucose 95 Calcium 8.9 Total Bilirubin 0.4 AST 28 ALT 46 Alkaline Phosphatase 74 Troponin I 0.0130 NT-Pro-B Natriuret Pep 2640 H Total Protein 7.2 Albumin 3.7 Globulin 3.5 Albumin/Globulin Ratio 1.1 04/08/17 04/08/17 06:29 11:55 Sodium Potassium Chloride Carbon Dioxide Anion Gap BUN Creatinine Est GFR ( Amer) Est GFR (Non-Af Amer) POC Glucose (mg/dL) 142 H Random Glucose Calcium Total Bilirubin AST ALT Alkaline Phosphatase Troponin I < 0.0120 NT-Pro-B Natriuret Pep Total Protein Albumin Globulin Albumin/Globulin Ratio Assessment & Plan (1) CHF (congestive heart failure), NYHA class III Status: Acute (2) Chest discomfort Status: Acute (3) Dyspnea Status: Acute (4) Shortness of breath Status: Acute (5) A-fib Status: Chronic (6) Hypertension Status: Chronic (7) Pulmonary hypertension Status: Chronic
--- NOTE | 2017-04-08 18:18 | PCM.HF ---
Heart Failure Core Measure - Heart Failure Ejection Fraction: 40 % or Greater (ef >40%) SARWAT Inhibitor Prescribed: No Contraindication/Reason for not providing: on arb Beta-Amor Prescribed: Metoprolol Succinate Angiotensin II Receptor Amor Prescribed: Yes AnticoagulationTherapy for Atrial Fibrillation/Atrialflutter: No Contraindication/Reason for not providing: no afib Aldosterone Antagonist Prescribed: No Contraindication/Reason for not providing: ef >40% Hydralazine Nitrate Prescribed: No Contraindication/Reason for not providing: ef >40% Implantable Cardioverter Defibrillator Therapy: No Contraindication/Reason for not providing: ef >40% Cardiac Resynchronization Therapy Prescribed: No Contraindication/Reason for not providing: ef >40% - Follow up Will be discharged to: Home Follow Up Date (must be within 7 days from discharge): 04/11/17 Follow Up Time: 09:00
--- NOTE | 2017-04-10 22:22 | CARD ---
APPROVED REPORT EKG Measurement Heart [id number] <Conclusion> Atrial fibrillation Left anterior fascicular block Abnormal ECG
--- NOTE | 2017-04-10 22:24 | CARD ---
APPROVED REPORT EKG Measurement Heart [id number] <Conclusion> Atrial fibrillation Left axis deviation Low voltage QRS Abnormal ECG
== END 2017-04-08 14:29 | disposition home or self-care (01) ==
LOC: C.ER 14:03 → C.9E 15:58 → C.6T 16:57
PROVIDERS: ADMIT Internal Medicine; ATTEND Internal Medicine
DX: R07.89 Other chest pain (principal); E03.9 Hypothyroidism, unspecified; E78.5 Hyperlipidemia, unspecified; F03.90 Unspecified dementia, unspecified severity, without behavioral disturbance, psychotic disturbance, mood disturbance, and anxiety; F31.9 Bipolar disorder, unspecified; I25.10 Atherosclerotic heart disease of native coronary artery without angina pectoris; Z86.73 Personal history of transient ischemic attack (TIA), and cerebral infarction without residual deficits; J44.9 Chronic obstructive pulmonary disease, unspecified; I13.0 Hypertensive heart and chronic kidney disease with heart failure and stage 1 through stage 4 chronic kidney disease, or unspecified chronic kidney disease; I48.91 Unspecified atrial fibrillation; I50.9 Heart failure, unspecified; N18.9 Chronic kidney disease, unspecified
CPT/HCPCS: 36415; 71010; 80053; 82948; 83880; 84484; 85025; 94640; 94760; 96374; 99285; G0378; J1940

== ENCOUNTER 2017-12-22 10:29 | Emergency (ER) | payer MEDICARE, MEDICAID ==
[2017-12-22 10:29] VITALS: PULSE 105; BMI 35.6
[2017-12-22 10:37] VITALS: BP 160/89; PULSE 64; RESP 20; TEMP 98.2; O2SAT 96
--- NOTE | 2017-12-22 10:50 | C.PDOC ---
History Of Present Illness Patient presents to ED c/o right ear pain since yesterday. Patient denies falls /injuries, fever, discharge, bleeding, cough, sore throat. She states she has an ENT physician, Dr. Reed, and she has an appointment with him this afternoon at 1pm. Patient has not taken any medication for pain. Time Seen by Provider: 12/22/17 10:46 Chief Complaint (Nursing): ENT Problem History Per: Patient History/Exam Limitations: None Onset/Duration Of Symptoms: Days (2) Symptoms Have Been: Continuous Severity: Moderate Past Medical History Reviewed: Historical Data, Nursing Documentation, Vital Signs Vital Signs: Last Vital Signs Temp 98.2 F 12/22/17 10:33 Pulse 64 12/22/17 10:33 Resp 20 12/22/17 10:33 BP 160/89 H 12/22/17 10:33 Pulse Ox 96 12/22/17 10:50 - Medical History PMH: Anxiety, Arthritis, Asthma, Atrial Fibrillation, Bipolar Disorder, CAD, Cardia Arrhythmia (a fib), CHF, COPD, Crohn's Disease, CVA, Dementia, Depression , Diabetes, Diverticulitis, Fractures (Left Hip displacement), Gastritis, Hiatal Hernia, HTN, Hypercholesterolemia, Hyperlipidemia, Hypothyroidism, Osteoporosis, Peripheral Edema Surgical History: Appendectomy, Cholecystectomy (documented in history but patient does not acknowledge), Pacemaker, - [facility] Procedures CORONAR ARTERIOGR-2 CATH (08/24/12) DRESSING TECHNIQUES TREATMENT USING ASSIST EQUIPMENT (04/14/17) ESOPHAGOGASTRODUODENOSCOPY [EGD] W/CLOSED BIOPSY (10/03/13) EXCISION OF DUODENUM, ENDO, DIAGN (11/02/15) EXCISION OF STOMACH, ENDO, DIAGN (11/02/15) EXERCISE TRMT MUSCULOSK LOW BACK/LE W ASSIST EQUIP (04/14/17) FLUOROSCOPY OF MULT COR ART USING L OSM CONTRAST (03/04/17) FLUOROSCOPY OF RIGHT AND LEFT HEART USING L OSM CONTRAST (03/04/17) GAIT TRAINING/AMBULAT TREATMENT USING ASSIST EQUIPMENT (04/14/17) GAIT TRAINING/FUNCTIONAL AMBULATION TREATMENT (06/19/15) HOME MANAGEMENT TREATMENT (06/19/15) HOME MANAGEMENT TREATMENT USING ASSIST EQUIPMENT (04/26/16) INTRODUCE OF OTH THERAP SUBST INTO RESP TRACT, VIA OPENING (12/23/16) INTRODUCTION OF ANTI-INFLAM INTO PERIPH VEIN, PERC APPROACH (04/26/16) INTRODUCTION OF ANTI-INFLAM INTO RESP TRACT, VIA OPENING (04/26/16) INTRODUCTION OF SERUM/TOX/VACCINE INTO MUSCLE, PERC APPROACH (03/08/16) LT HEART ANGIOCARDIOGRAM (08/24/12) MEASURE CARDIAC SAMPL & PRESSURE, BILATERAL, PERC (03/04/17) RT/LEFT HEART CARD CATH (08/24/12) THERAPEUTIC EXERCISE TREATMENT OF MUSCULOSK WHOLE (06/19/15) VACCINATION NEC (10/03/13) Family History: States: Unknown Family Hx - Social History Hx Tobacco Use: No Hx Alcohol Use: No Hx Substance Use: No - Immunization History Hx Tetanus Toxoid Vaccination: Yes Hx Influenza Vaccination: Yes Hx Pneumococcal Vaccination: Yes Review Of Systems Constitutional: Negative for: Fever, Chills ENT: Positive for: Ear Pain (right ). Negative for: Nose Congestion Cardiovascular: Negative for: Chest Pain, Palpitations Respiratory: Negative for: Cough, Shortness of Breath Gastrointestinal: Negative for: Nausea, Vomiting, Abdominal Pain Skin: Negative for: Rash Neurological: Negative for: Headache, Dizziness Physical Exam - Physical Exam Appears: Well, Non-toxic, In Acute Distress (in mild pain) Skin: Normal Color, Warm, Dry, No Rash Head: Atraumatic, Normacephalic Eye(s): bilateral: Normal Inspection Ear(s): Left: Normal, Right: Other (right ear canal erythematous with white discharge, TM normal, no mastoid TTP) Oral Mucosa: Moist Throat: Normal, No Erythema, No Exudate Cardiovascular: Rhythm Regular Respiratory: Normal Breath Sounds, No Rales, No Rhonchi, No Wheezing ED Course And Treatment O2 Sat by Pulse Oximetry: 96 (RA) Pulse Ox Interpretation: Normal Progress Note: Patient given PO Motrin and Rx for ofloxacin drops. Patient instructed to follow up with Dr. reed as scheduled. She understands she should return to ED if symptoms worsen. Disposition Counseled Patient/Family Regarding: Diagnosis, Need For Followup, Rx Given - Disposition Referrals: Archie Reed MD [Staff Provider] - Disposition: HOME/ ROUTINE Disposition Time: 10:50 Condition: STABLE Additional Instructions: FOLLOW UP WITH DR REED IN THE OFFICE TODAY SCHEDULED USE MEDICATIONS DIRECTED RETURN TO ER IF SYMPTOMS WORSEN Prescriptions: Ibuprofen [Motrin Tab] 600 mg PO Q6 PRN #30 tab PRN Reason: fever/pain Ofloxacin Otic 0.3% [Floxin 0.3% Otic Soln] 10 drop GT ONCE #1 bottle Instructions: Outer Ear Infection (DC) Forms: [facility] (Armenian) Print Language: COMORAN - Clinical Impression Clinical Impression: Otitis externa, Right ear pain
== END 2017-12-22 11:00 | disposition home or self-care (01) ==
LOC: C.ER 10:29
DX: H60.91 Unspecified otitis externa, right ear (principal); H92.01 Otalgia, right ear

== ENCOUNTER 2018-01-01 15:45 | Inpatient (IN) | payer MEDICARE, MEDICAID ==
[2018-01-01 15:46] VITALS: BMI 35.6
--- NOTE | 2018-01-01 16:14 | C.PDOC ---
History Of Present Illness 82 year old female with a Hx of CHF, HTN, and COPD on eliquis presents to the ER with a complaint of chest pain and SOB since last night. Patient reports she is complaint with her eliquis. Denies fever or other complaints. Time Seen by Provider: 01/01/18 15:58 Chief Complaint (Nursing): Chest Pain History Per: Patient History/Exam Limitations: no limitations Onset/Duration Of Symptoms: Hrs Current Symptoms Are (Timing): Still Present Associated Symptoms: Dyspnea. denies: Other (Fever) Modifying Factors: None Exacerbating Factors: None Alleviating Factors: None Recent travel outside of the [place]: No Past Medical History Reviewed: Historical Data, Nursing Documentation, Vital Signs Vital Signs: Last Vital Signs Temp 98.2 F 01/04/18 07:05 Pulse 67 01/04/18 07:05 Resp 18 01/04/18 07:05 BP 112/75 01/04/18 07:05 Pulse Ox 94 L 01/04/18 07:05 - Medical History PMH: Anxiety, Arthritis, Asthma, Atrial Fibrillation, Bipolar Disorder, CAD, Cardia Arrhythmia (a fib), CHF, COPD, Crohn's Disease, CVA, Dementia, Depression , Diabetes, Diverticulitis, Fractures (Left Hip displacement), Gastritis, Hiatal Hernia, HTN, Hypercholesterolemia, Hyperlipidemia, Hypothyroidism, Osteoporosis, Peripheral Edema Denies: HIV, Chronic Kidney Disease Surgical History: Appendectomy, Cholecystectomy (documented in history but patient does not acknowledge), Pacemaker, - [facility] Procedures CORONAR ARTERIOGR-2 CATH (08/24/12) DRESSING TECHNIQUES TREATMENT USING ASSIST EQUIPMENT (04/14/17) ESOPHAGOGASTRODUODENOSCOPY [EGD] W/CLOSED BIOPSY (10/03/13) EXCISION OF DUODENUM, ENDO, DIAGN (11/02/15) EXCISION OF STOMACH, ENDO, DIAGN (11/02/15) EXERCISE TRMT MUSCULOSK LOW BACK/LE W ASSIST EQUIP (04/14/17) FLUOROSCOPY OF MULT COR ART USING L OSM CONTRAST (03/04/17) FLUOROSCOPY OF RIGHT AND LEFT HEART USING L OSM CONTRAST (03/04/17) GAIT TRAINING/AMBULAT TREATMENT USING ASSIST EQUIPMENT (04/14/17) GAIT TRAINING/FUNCTIONAL AMBULATION TREATMENT (06/19/15) HOME MANAGEMENT TREATMENT (06/19/15) HOME MANAGEMENT TREATMENT USING ASSIST EQUIPMENT (04/26/16) INTRODUCE OF OTH THERAP SUBST INTO RESP TRACT, VIA OPENING (12/23/16) INTRODUCTION OF ANTI-INFLAM INTO PERIPH VEIN, PERC APPROACH (04/26/16) INTRODUCTION OF ANTI-INFLAM INTO RESP TRACT, VIA OPENING (04/26/16) INTRODUCTION OF SERUM/TOX/VACCINE INTO MUSCLE, PERC APPROACH (03/08/16) LT HEART ANGIOCARDIOGRAM (08/24/12) MEASURE CARDIAC SAMPL & PRESSURE, BILATERAL, PERC (03/04/17) RT/LEFT HEART CARD CATH (08/24/12) THERAPEUTIC EXERCISE TREATMENT OF MUSCULOSK WHOLE (06/19/15) VACCINATION NEC (10/03/13) Family History: States: Unknown Family Hx - Social History Hx Tobacco Use: No Hx Alcohol Use: No Hx Substance Use: No - Immunization History Hx Tetanus Toxoid Vaccination: Yes Hx Influenza Vaccination: Yes Hx Pneumococcal Vaccination: Yes Review Of Systems Constitutional: Negative for: Fever Cardiovascular: Positive for: Chest Pain Respiratory: Positive for: Shortness of Breath Gastrointestinal: Negative for: Nausea, Vomiting, Abdominal Pain Skin: Negative for: Rash Neurological: Negative for: Weakness, Numbness Physical Exam - Physical Exam Appears: Non-toxic Skin: Normal Color, Warm, Dry Head: Atraumatic, Normacephalic Eye(s): bilateral: Normal Inspection Oral Mucosa: Moist Neck: Normal, Supple Chest: Symmetrical, No Tenderness Cardiovascular: Rhythm Regular Respiratory: Rales (Bilateral at bases), No Rhonchi, No Wheezing Gastrointestinal/Abdominal: Soft, No Tenderness Back: No CVA Tenderness Neurological/Psych: Oriented x3, Normal Speech ED Course And Treatment - Laboratory Results Result Diagrams: 01/03/18 08:16 01/03/18 08:16 ECG: Interpreted By Me, Viewed By Me ECG Rhythm: Atrial Fibrillation ECG Interpretation: Normal Rate From EC O2 Sat by Pulse Oximetry: 95 (Room air) Pulse Ox Interpretation: Normal Medical Decision Making Medical Decision Making: EKG, blood work, and CXR ordered. pt reassesed. lasix dosed. cxr cardiomegaly as read by me. asa dosed. noted mild [place] with h/o of pacemaker. case discussed with pmd and dr madrigal. agree with current managment and tele admission Disposition - Disposition Disposition: HOSPITALIZED Disposition Time: 17:32 Condition: STABLE - Clinical Impression Clinical Impression: Congestive heart failure - Scribe Statement The provider has reviewed the documentation as recorded by the Scribe Julian Dawson All medical record entries made by the Scribe were at my direction and personally dictated by me. I have reviewed the chart and agree that the record accurately reflects my personal performance of the history, physical exam, medical decision making, and the department course for this patient. I have also personally directed, reviewed, and agree with the discharge instructions and disposition.
[2018-01-01 16:39] LABS: BASO % 0.4 % (0.0-2.0); EOS % 0.6 % (0.0-4.0); HEMOGLOBIN 12.6 g/dL (11.0-16.0); LYMPH # 2.4 K/uL (1.0-4.3); LYMPH % 43.7 % (20.0-40.0); MEAN CELL VOLUME 83.3 fL (81.0-99.0); MEAN CORPUSCULAR HEMOGLOBIN 26.2 pg (27.0-31.0); MEAN CORPUSCULAR HGB CONC 31.4 g/dL (33.0-37.0); MEAN PLATELET VOLUME 8.8 fL (7.2-11.7); MONO # 0.5 K/uL (0.0-0.8); MONO % 9.3 % (0.0-10.0); NEUT # 2.6 K/uL (1.8-7.0); RBC 4.82 Mil/uL (3.80-5.20); RED CELL DISTRIBUTION WIDTH 15.8 % (11.5-14.5); WHITE BLOOD COUNT 5.6 K/uL (4.8-10.8)
[2018-01-01 16:46] LABS: INR 1.4; PROTHROMBIN TIME 15.7 SECONDS (9.7-12.2)
[2018-01-01 16:58] LABS: ALB/GLOB RATIO 1.5 (1.0-2.1); ALBUMIN 3.8 g/dL (3.5-5.0); ALT/SGPT 38 U/L (9-52); AST/SGOT 42 U/L (14-36); BLOOD UREA NITROGEN 15 mg/dL (7-17); CALCIUM 9.3 mg/dl (8.6-10.4); GFR NON-AFRICAN AMERICAN > 60
[2018-01-01 17:00] LABS: B-TYPE NATRIURETIC PEPTIDE 2850 pg/mL (0-900)
[2018-01-01] MEDS ORDERED: Albuterol HFA 90 mcg/actuation (8 g) INH PRN (22:22)
[2018-01-01] MEDS ORDERED: Glucagon Recombinant 1 mg Inj IM PRN (22:38)
[2018-01-01] MEDS ORDERED: Dextrose 50% SYRINGE Inj (50 ml) IV PRN (22:38)
--- NOTE | 2018-01-02 06:19 | CP.PCM.CON ---
<Leonel Huerta - Last Filed: 01/03/18 07:30> History of Present Illness - History of Present Illness History of Present Illness: CARDIOLOGY PROGRESS NOTE FOR DR. KRISTINE Huerta D.O PGY-1 Mrs. Martino is a 82 y/o F w/ pmhx of diastolic CHF, pulmonary HTN, nonischemic cardiomyopathy w/ pacemaker, Afib on eloquis, DM2, HTN, COPD, Hypothyroidism, HLD, PUD presents to with complaints of substernal pressure-like chest pain with radiation to L arm and SOB x 2 days. She reports she had had similar episodes previously and has been taking her medication as instructed by her customer agent. She reports going on a recent trip with her pentecostal. She has several similar episodes after consuming a salt-heavy meal. She lives alone and needs assistance when walking. This am she continues to have shortness of breath and headache. She denies fevers, chills, chest pain, cough, nausea, vomiting, diophoresis, constipation, diarrhea. PMH: diastolic CHF, pulmonary HTN, nonischemic cardiomyopathy, Afib on eloquis, DM2, HTN, COPD, Hypothyroidism, HLD, PUD All: NKDA SH: Denies smoking, drinking Hosp: 10/01/17: Abdominal pain Meds: See JUN PMD: Dr. Romero Area Cleaner: Dr. Pendleton Cardiac Cath (03/06/17)-Dr. Pendleton: Non obstructive coronary artery disease. Mild left main stenosis, normal ejection fraction Review of Systems - Review of Systems All systems: reviewed and no additional remarkable complaints except (as per HPI ) Past Patient History - Infectious Disease Hx of Infectious Diseases: None - Past Medical History & Family History Past Medical History?: Yes - Past Social History Smoking Status: Never Smoked - CARDIAC Hx Atrial Fibrillation: Yes Hx Cardia Arrhythmia: Yes (a fib) Hx Congestive Heart Failure: Yes Hx Hypercholesterolemia: Yes Hx Hypertension: Yes Hx Pacemaker: Yes Hx Peripheral Edema: Yes - PULMONARY Hx Asthma: Yes Hx Chronic Obstructive Pulmonary Disease (COPD): Yes - NEUROLOGICAL Hx Dementia: Yes - HEENT Hx HEENT Problems: Yes Hx Blind: Yes (R eye) - RENAL Hx Chronic Kidney Disease: No - ENDOCRINE/METABOLIC Hx Diabetes Mellitus Type 1: Yes Hx Hypothyroidism: Yes - HEMATOLOGICAL/ONCOLOGICAL Hx Cancer: Yes Hx Human Immunodeficiency Virus (HIV): No - INTEGUMENTARY Hx Dermatological Problems: No - MUSCULOSKELETAL/RHEUMATOLOGICAL Hx Arthritis: Yes Hx Falls: Yes Hx Fractures: Yes (Left Hip displacement) Hx Osteoporosis: Yes - GASTROINTESTINAL Hx Crohn's Disease: Yes Hx Diverticulitis: Yes Hx Gastritis: Yes - GENITOURINARY/GYNECOLOGICAL Hx Genitourinary Disorders: Yes Hx Incontinence: Yes - PSYCHIATRIC Hx Anxiety: Yes Hx Bipolar Disorder: Yes Hx Depression: Yes Hx Substance Use: No - SURGICAL HISTORY Hx Appendectomy: Yes Hx Cholecystectomy: Yes (documented in history but patient does not acknowledge) - ANESTHESIA Hx Anesthesia: Yes Hx Anesthesia Reactions: No Hx Malignant Hyperthermia: No Meds Allergies/Adverse Reactions: Allergies Allergy/AdvReac Type Severity Reaction Status Date / Time No Known Allergies Allergy Verified 12/22/17 10:37 - Medications Medications: Current Medications Albuterol (Ventolin Hfa 90 Mcg/Actuation (8 G)) 1 puff INH RQ6 PRN PRN Reason: sob Apixaban (Eliquis) 2.5 mg PO BID [facility] Aspirin (Ecotrin) 81 mg PO DAILY [facility] Dextrose (Dextrose 50% Inj) 0 ml IV STAT PRN; Protocol PRN Reason: Hypoglycemia Protocol Dextrose (Glutose 15) 0 gm PO ONCE PRN; Protocol PRN Reason: Hypoglycemia Protocol Digoxin (Digoxin) 0.125 mg PO DAILY@1800 [facility] Docusate Sodium (Colace) 200 mg PO HS [facility] Last Admin: 01/01/18 23:06 Dose: 200 mg Furosemide (Lasix) 40 mg PO BID [facility] Gabapentin (Neurontin) 300 mg PO TID [facility] Last Admin: 01/01/18 23:07 Dose: 300 mg Glucagon (Glucagen Diagnostic Kit) 0 mg IM STAT PRN; Protocol PRN Reason: Hypoglycemia Protocol Home Med (Donepezil Hcl [Aricept Odt]) 1 tab PO DAILY [facility] Home Med (Lipase/Protease/Amylase [Zenpep Dr 3,000 Unit Capsule]) 2 cap PO BID [facility] Home Med (Meloxicam [Mobic]) 7.5 mg PO DAILY [facility] Home Med (Sildenafil [Revatio]) 20 mg PO TID [facility] Dextrose (Dextrose 5% In Water 1000 Ml) 1,000 mls @ 0 mls/hr IV .Q0M PRN; Protocol; Per Protocol PRN Reason: Hypoglycemia Protocol Ibuprofen (Motrin Tab) 600 mg PO Q6 PRN PRN Reason: fever/pain Insulin Aspart (Novolog) 1 unit SC ACHS [facility] PRN Reason: Protocol Levothyroxine Sodium (Synthroid) 100 mcg PO DAILY@0630 [facility] Losartan Potassium (Cozaar) 50 mg PO DAILY [facility] Magnesium Oxide (Mag-Ox) 400 mg PO DAILY [facility] Metoprolol Tartrate (Lopressor) 25 mg PO Q12 [facility] Ondansetron HCl (Zofran Odt) 4 mg PO Q6 PRN PRN Reason: Nausea/Vomiting Pantoprazole Sodium (Protonix Ec Tab) 40 mg PO DAILY [facility] Rivastigmine (Exelon 9.5 Mg/24 Hr Patch) 1 patch TD DAILY [facility] Rosuvastatin Calcium (Crestor) 5 mg PO HS [facility] Fluticasone/Salmeterol (Advair Diskus 250/50) 1 puff INH RQ12 [facility] Sitagliptin Phosphate (Januvia) 50 mg PO DAILY [facility] Sucralfate (Carafate Oral Susp) 1 gm PO BID [facility] Tolterodine Tartrate (Detrol La) 4 mg PO DAILY [facility] Physical Exam - Constitutional Appears: Well, Non-toxic, No Acute Distress - Head Exam Head Exam: NORMAL INSPECTION - Eye Exam Eye Exam: EOMI, Normal appearance - ENT Exam ENT Exam: Mucous Membranes Moist, Normal Exam - Neck Exam Neck exam: Positive for: Normal Inspection - Respiratory Exam Respiratory Exam: Rales (b/l), NORMAL BREATHING PATTERN - Cardiovascular Exam Cardiovascular Exam: Irregular Rhythm, +S1, +S2 - GI/Abdominal Exam GI & Abdominal Exam: Soft. absent: Tenderness - Extremities Exam Extremities exam: Positive for: joint swelling, normal inspection, pedal edema - Back Exam Back exam: NORMAL INSPECTION - Neurological Exam Neurological exam: Alert, Oriented x3 - Psychiatric Exam Psychiatric exam: Normal Affect, Normal Mood - Skin Skin Exam: Dry, Intact, Warm Results - Vital Signs Recent Vital Signs: Last Vital Signs Temp 97.8 F 01/01/18 23:45 Pulse 48 L 01/02/18 04:00 Resp 20 01/01/18 23:45 BP 107/59 L 01/01/18 23:45 Pulse Ox 97 01/01/18 23:45 - Labs Result Diagrams: 01/01/18 16:27 01/01/18 16:27 Labs: Laboratory Results - last 24 hr 01/01/18 01/01/18 01/01/18 16:27 16:27 16:27 WBC 5.6 RBC 4.82 Hgb 12.6 Hct 40.2 MCV 83.3 D MCH 26.2 L MCHC 31.4 L RDW 15.8 H Plt Count 203 MPV 8.8 Neut % (Auto) 46.0 L Lymph % (Auto) 43.7 H [place] % (Auto) 9.3 Eos % (Auto) 0.6 Baso % (Auto) 0.4 Neut # (Auto) 2.6 Lymph # (Auto) 2.4 [place] # (Auto) 0.5 Eos # (Auto) 0.0 Baso # (Auto) 0.0 PT 15.7 H INR 1.4 APTT 39 H Sodium 138 Potassium 4.4 Chloride 99 Carbon Dioxide 30 Anion Gap 14 BUN 15 Creatinine 0.7 Est GFR ( Amer) > 60 Est GFR (Non-Af Amer) > 60 POC Glucose (mg/dL) Random Glucose 101 Calcium 9.3 Total Bilirubin 0.4 AST 42 H ALT 38 Alkaline Phosphatase 146 H D Troponin I 0.0140 NT-Pro-B Natriuret Pep 2850 H Total Protein 6.5 Albumin 3.8 Globulin 2.6 Albumin/Globulin Ratio 1.5 Digoxin 01/01/18 01/01/18 17:21 22:18 WBC RBC Hgb Hct MCV MCH MCHC RDW Plt Count MPV Neut % (Auto) Lymph % (Auto) [place] % (Auto) Eos % (Auto) Baso % (Auto) Neut # (Auto) Lymph # (Auto) [place] # (Auto) Eos # (Auto) Baso # (Auto) PT INR APTT Sodium Potassium Chloride Carbon Dioxide Anion Gap BUN Creatinine Est GFR ( Amer) Est GFR (Non-Af Amer) POC Glucose (mg/dL) 122 H Random Glucose Calcium Total Bilirubin AST ALT Alkaline Phosphatase Troponin I NT-Pro-B Natriuret Pep Total Protein Albumin Globulin Albumin/Globulin Ratio Digoxin 0.9 Assessment & Plan - Assessment and Plan (Free Text) Assessment: 82 y/o F w/ pmhx of diastolic CHF, pulmonary HTN, nonischemic cardiomyopathy w/ pacemaker, Afib on eloquis, DM2, HTN, COPD, Hypothyroidism, HLD, PUD admitted for acute on chronic CHF exacerbation Plan: Acute on Chronic CHF exacerbation Start lasix 40mg IVP daily. Monitor serial BNP continue home digoxin 0.125 qd Pulmonary HTN continue sildenafil Afib continue home eliquis 2.5mg bid HTN continue losartan 50mg qd continue metoprolol 25mg q12 HLD continue rosuvastatin continue aspirin DM continue home insulin, sitagliptin Case seen, examined and discussed with attending physician, Dr. Pendleton. Further recs per him. <Rony Pendleton - Last Filed: 01/05/18 18:35> Meds - Medications Medications: Current Medications Acetaminophen (Tylenol 650mg/20.3ml Solution Ud) 650 mg PO Q6 PRN PRN Reason: Pain, moderate (4-7) Albuterol (Ventolin Hfa 90 Mcg/Actuation (8 G)) 1 puff INH RQ6 PRN PRN Reason: sob Apixaban (Eliquis) 2.5 mg PO BID [facility] Last Admin: 01/05/18 18:12 Dose: 2.5 mg Aspirin (Ecotrin) 81 mg PO DAILY [facility] Last Admin: 01/05/18 10:33 Dose: 81 mg Dextrose (Dextrose 50% Inj) 0 ml IV STAT PRN; Protocol PRN Reason: Hypoglycemia Protocol Dextrose (Glutose 15) 0 gm PO ONCE PRN; Protocol PRN Reason: Hypoglycemia Protocol Digoxin (Digoxin) 0.125 mg PO DAILY@1800 [facility] Last Admin: 01/05/18 18:12 Dose: 0.125 mg Docusate Sodium (Colace) 200 mg PO [facility] Last Admin: 01/04/18 21:45 Dose: 200 mg Donepezil HCl (Aricept) 10 mg PO [facility] Last Admin: 01/04/18 21:45 Dose: 10 mg Furosemide (Lasix) 40 mg IVP BID [facility] Last Admin: 01/05/18 18:22 Dose: 40 mg Gabapentin (Neurontin) 300 mg PO TID [facility] Last Admin: 01/05/18 18:13 Dose: 300 mg Glucagon (Glucagen Diagnostic Kit) 0 mg IM STAT PRN; Protocol PRN Reason: Hypoglycemia Protocol Home Med (Sildenafil [Revatio]) 20 mg PO TID [facility] Ibuprofen (Motrin Tab) 600 mg PO Q6 PRN PRN Reason: fever/pain Last Admin: 01/05/18 10:48 Dose: 600 mg Insulin Aspart (Novolog) [facility] PRN Reason: Protocol Last Admin: 01/05/18 16:24 Dose: Not Given Levothyroxine Sodium (Synthroid) 100 mcg PO DAILY@0630 [facility] Last Admin: 01/05/18 05:45 Dose: 100 mcg Magnesium Oxide (Mag-Ox) 400 mg PO DAILY [facility] Last Admin: 01/05/18 10:32 Dose: 400 mg Metoprolol Tartrate (Lopressor) 25 mg PO Q12 [facility] Last Admin: 01/05/18 10:00 Dose: 25 mg Ondansetron HCl (Zofran Odt) 4 mg PO Q6 PRN PRN Reason: Nausea/Vomiting Last Admin: 01/04/18 10:49 Dose: 4 mg Pantoprazole Sodium (Protonix Ec Tab) 40 mg PO DAILY [facility] Last Admin: 01/05/18 10:33 Dose: 40 mg Rivastigmine (Exelon 9.5 Mg/24 Hr Patch) 1 patch TD DAILY [facility] Last Admin: 01/05/18 10:41 Dose: 1 patch Rosuvastatin Calcium (Crestor) 5 mg PO HS [facility] Last Admin: 01/04/18 21:45 Dose: 5 mg Fluticasone/Salmeterol (Advair Diskus 250/50) 1 puff INH RQ12 [facility] Last Admin: 01/05/18 08:02 Dose: 1 puff Sitagliptin Phosphate (Januvia) 50 mg PO DAILY [facility] Last Admin: 01/05/18 10:33 Dose: 50 mg Spironolactone (Aldactone) 25 mg PO DAILY [facility] Last Admin: 01/05/18 10:53 Dose: 25 mg Sucralfate (Carafate Oral Susp) 1 gm PO BID [facility] Last Admin: 01/05/18 18:12 Dose: 1 gm Tolterodine Tartrate (Detrol La) 4 mg PO DAILY [facility] Last Admin: 01/05/18 10:34 Dose: 4 mg Zolpidem Tartrate (Ambien) 5 mg PO HS PRN PRN Reason: Insomnia Last Admin: 01/04/18 21:42 Dose: 5 mg Results - Vital Signs Recent Vital Signs: Last Vital Signs Temp 97.8 F 01/05/18 15:00 Pulse 60 01/05/18 16:00 Resp 20 01/05/18 15:00 BP 122/80 01/05/18 18:22 Pulse Ox 98 01/05/18 15:00 - Labs Result Diagrams: 01/05/18 07:35 01/05/18 07:35 Labs: Laboratory Results - last 24 hr 01/04/18 01/05/18 01/05/18 20:40 06:08 07:35 WBC RBC Hgb Hct MCV MCH MCHC RDW Plt Count MPV Neut % (Auto) Lymph % (Auto) [place] % (Auto) Eos % (Auto) Baso % (Auto) Neut # (Auto) Lymph # (Auto) [place] # (Auto) Eos # (Auto) Baso # (Auto) Differential Comment Sodium 137 Potassium 3.8 Chloride 91 L Carbon Dioxide 38 H Anion Gap 12 BUN 21 H Creatinine 0.9 Est GFR ( Amer) > 60 Est GFR (Non-Af Amer) > 60 POC Glucose (mg/dL) 120 H 101 Random Glucose 99 Uric Acid 5.2 Calcium 8.9 Total Bilirubin 0.5 AST 23 ALT 29 Alkaline Phosphatase 120 NT-Pro-B Natriuret Pep 1770 H Total Protein 5.8 L Albumin 3.3 L Globulin 2.4 Albumin/Globulin Ratio 1.4 01/05/18 01/05/18 07:35 10:56 WBC 6.5 RBC 4.84 Hgb 13.1 Hct 40.1 MCV 82.8 MCH 27.1 MCHC 32.7 L RDW 15.4 H Plt Count 178 MPV 9.1 Neut % (Auto) 40.9 L Lymph % (Auto) 46.8 H [place] % (Auto) 10.1 H Eos % (Auto) 1.7 Baso % (Auto) 0.5 Neut # (Auto) 2.7 Lymph # (Auto) 3.0 [place] # (Auto) 0.7 Eos # (Auto) 0.1 Baso # (Auto) 0.0 Differential Comment Sodium Potassium Chloride Carbon Dioxide Anion Gap BUN Creatinine Est GFR ( Amer) Est GFR (Non-Af Amer) POC Glucose (mg/dL) 143 H Random Glucose Uric Acid Calcium Total Bilirubin AST ALT Alkaline Phosphatase NT-Pro-B Natriuret Pep Total Protein Albumin Globulin Albumin/Globulin Ratio Attending/Attestation - Attestation I have personally seen and examined this patient.: Yes I have fully participated in the care of the patient.: Yes I have reviewed all pertinent clinical information: Yes
[2018-01-02] MEDS: Levothyroxine 100 MCG TAB PO SCH (06:21)
[2018-01-02 07:36] LABS: CK-MB 0.62 ng/mL (0.0-3.38); TROPONIN I 0.015 ng/mL (0.00-0.120)
[2018-01-02] MEDS: (Novolog) Insulin Aspart, Recombinant 100 u/ml 10 ml vial SC SCH ×4 (07:59→22:30)
[2018-01-02] MEDS: Sucralfate 1 gm/10 ml Oral Susp UD PO SCH ×2 (09:27→18:41)
[2018-01-02] MEDS: Magnesium Oxide 400 mg Tab UD PO SCH (09:28)
[2018-01-02] MEDS: Tolterodine 4 mg ER Cap PO SCH (09:32)
[2018-01-02] MEDS: Pantoprazole 40 mg EC Tab PO SCH (09:46)
--- NOTE | 2018-01-02 10:57 | CP.PCM.HP ---
History of Present Illness - History of Present Illness History of Present Illness: PT CAME TO ED FOR SOB CHEST TIGHT Present on Admission - Present on Admission Any Indicators Present on Admission: No Review of Systems - Review of Systems Systems not reviewed;Unavailable: Acuity of Condition - Constitutional Constitutional: Fatigue - EENT Eyes: Decreased Night Vision Ears: As Per HPI Nose/Mouth/Throat: As Per HPI - Breasts Breasts: As Per HPI - Cardiovascular Cardiovascular: Chest Pain at Rest, Dyspnea, Dyspnea on Exertion, Irregular Heart Rhythm, Slow Heart Rate - Respiratory Respiratory: Dyspnea, Dyspnea on Exertion, Wheezing - Gastrointestinal Gastrointestinal: As Per HPI - Genitourinary Genitourinary: As Per HPI - Reproductive: Female Reproductive:Female: As Per HPI - Menstruation Menstruation: As Per HPI, Post Menopausal - Musculoskeletal Musculoskeletal: Back Pain - Integumentary Integumentary: As Per HPI - Psychiatric Psychiatric: Anxiety - Endocrine Additional Comments: DM - Hematologic/Lymphatic Hematologic: As Per HPI Past Patient History - Infectious Disease Hx of Infectious Diseases: None - Past Medical History & Family History Past Medical History?: Yes - Past Social History Smoking Status: Never Smoked - CARDIAC Hx Atrial Fibrillation: Yes Hx Cardia Arrhythmia: Yes (a fib) Hx Congestive Heart Failure: Yes Hx Hypercholesterolemia: Yes Hx Hypertension: Yes Hx Pacemaker: Yes Hx Peripheral Edema: Yes - PULMONARY Hx Asthma: Yes Hx Chronic Obstructive Pulmonary Disease (COPD): Yes - NEUROLOGICAL Hx Dementia: Yes - HEENT Hx HEENT Problems: Yes Hx Blind: Yes (R eye) - RENAL Hx Chronic Kidney Disease: No - ENDOCRINE/METABOLIC Hx Diabetes Mellitus Type 1: Yes Hx Hypothyroidism: Yes - HEMATOLOGICAL/ONCOLOGICAL Hx Cancer: Yes Hx Human Immunodeficiency Virus (HIV): No - INTEGUMENTARY Hx Dermatological Problems: No - MUSCULOSKELETAL/RHEUMATOLOGICAL Hx Arthritis: Yes Hx Falls: Yes Hx Fractures: Yes (Left Hip displacement) Hx Osteoporosis: Yes - GASTROINTESTINAL Hx Crohn's Disease: Yes Hx Diverticulitis: Yes Hx Gastritis: Yes - GENITOURINARY/GYNECOLOGICAL Hx Genitourinary Disorders: Yes Hx Incontinence: Yes - PSYCHIATRIC Hx Anxiety: Yes Hx Bipolar Disorder: Yes Hx Depression: Yes Hx Substance Use: No - SURGICAL HISTORY Hx Appendectomy: Yes Hx Cholecystectomy: Yes (documented in history but patient does not acknowledge) - ANESTHESIA Hx Anesthesia: Yes Hx Anesthesia Reactions: No Hx Malignant Hyperthermia: No Meds Allergies/Adverse Reactions: Allergies Allergy/AdvReac Type Severity Reaction Status Date / Time No Known Allergies Allergy Verified 12/22/17 10:37 Physical Exam - Constitutional Appears: In Acute Distress - Head Exam Head Exam: ATRAUMATIC - Eye Exam Additional comments: HAS ONE EYE - ENT Exam ENT Exam: Normal Exam - Neck Exam Neck exam: Positive for: Full Rom - Respiratory Exam Respiratory Exam: Decreased Breath Sounds, Rales, Wheezes - Cardiovascular Exam Cardiovascular Exam: Irregular Rhythm - GI/Abdominal Exam GI & Abdominal Exam: Normal Bowel Sounds - Exam Exam: NORMAL INSPECTION - Extremities Exam Extremities exam: Positive for: pedal edema - Back Exam Back exam: NORMAL INSPECTION - Neurological Exam Neurological exam: Alert, Oriented x3 - Psychiatric Exam Psychiatric exam: Normal Affect - Skin Skin Exam: Normal Color Results - Vital Signs Recent Vital Signs: Last Vital Signs Temp 98.4 F 01/02/18 07:05 Pulse 56 L 01/02/18 07:05 Resp 20 01/02/18 07:05 BP 102/56 L 01/02/18 10:40 Pulse Ox 99 01/02/18 07:05 - Labs Result Diagrams: 01/01/18 16:27 01/01/18 16:27 Labs: Laboratory Results - last 24 hr 01/01/18 01/01/18 01/01/18 16:27 16:27 16:27 WBC 5.6 RBC 4.82 Hgb 12.6 Hct 40.2 MCV 83.3 D MCH 26.2 L MCHC 31.4 L RDW 15.8 H Plt Count 203 MPV 8.8 Neut % (Auto) 46.0 L Lymph % (Auto) 43.7 H [place] % (Auto) 9.3 Eos % (Auto) 0.6 Baso % (Auto) 0.4 Neut # (Auto) 2.6 Lymph # (Auto) 2.4 [place] # (Auto) 0.5 Eos # (Auto) 0.0 Baso # (Auto) 0.0 PT 15.7 H INR 1.4 APTT 39 H Sodium 138 Potassium 4.4 Chloride 99 Carbon Dioxide 30 Anion Gap 14 BUN 15 Creatinine 0.7 Est GFR ( Amer) > 60 Est GFR (Non-Af Amer) > 60 POC Glucose (mg/dL) Random Glucose 101 Calcium 9.3 Total Bilirubin 0.4 AST 42 H ALT 38 Alkaline Phosphatase 146 H D Total Creatine Kinase CK-MB (Mass) Troponin I 0.0140 NT-Pro-B Natriuret Pep 2850 H Total Protein 6.5 Albumin 3.8 Globulin 2.6 Albumin/Globulin Ratio 1.5 Digoxin 01/01/18 01/01/18 01/02/18 17:21 22:18 06:23 WBC RBC Hgb Hct MCV MCH MCHC RDW Plt Count MPV Neut % (Auto) Lymph % (Auto) [place] % (Auto) Eos % (Auto) Baso % (Auto) Neut # (Auto) Lymph # (Auto) [place] # (Auto) Eos # (Auto) Baso # (Auto) PT INR APTT Sodium Potassium Chloride Carbon Dioxide Anion Gap BUN Creatinine Est GFR ( Amer) Est GFR (Non-Af Amer) POC Glucose (mg/dL) 122 H 107 Random Glucose Calcium Total Bilirubin AST ALT Alkaline Phosphatase Total Creatine Kinase CK-MB (Mass) Troponin I NT-Pro-B Natriuret Pep Total Protein Albumin Globulin Albumin/Globulin Ratio Digoxin 0.9 01/02/18 06:52 WBC RBC Hgb Hct MCV MCH MCHC RDW Plt Count MPV Neut % (Auto) Lymph % (Auto) [place] % (Auto) Eos % (Auto) Baso % (Auto) Neut # (Auto) Lymph # (Auto) [place] # (Auto) Eos # (Auto) Baso # (Auto) PT INR APTT Sodium Potassium Chloride Carbon Dioxide Anion Gap BUN Creatinine Est GFR ( Amer) Est GFR (Non-Af Amer) POC Glucose (mg/dL) Random Glucose Calcium Total Bilirubin AST ALT Alkaline Phosphatase Total Creatine Kinase 72 CK-MB (Mass) 0.62 Troponin I 0.0150 NT-Pro-B Natriuret Pep 2970 H Total Protein Albumin Globulin Albumin/Globulin Ratio Digoxin Assessment & Plan - Assessment and Plan (Free Text) Assessment: FELIZ RECURENT CHF CHEST PAIN COPD AT FIB DM Plan: PER ORDERS - Date & Time Date: 01/02/18 Time: 11:00
[2018-01-02] MEDS: Fluticasone-Salmeterol 250-50mcg Diskus INH SCH (12:00)
[2018-01-02 12:26] LABS: CK-MB 0.6 ng/mL (0.0-3.38); TROPONIN I 0.02 ng/mL (0.00-0.120)
--- NOTE | 2018-01-02 13:05 | RAD ---
Date of service: 01/01/2018 PROCEDURE: CHEST RADIOGRAPH, 1 VIEW HISTORY: chest pain COMPARISON: 04/07/2017 FINDINGS: LUNGS: Clear. PLEURA: No pneumothorax or pleural fluid seen. CARDIOVASCULAR: Cardiomegaly. No evidence of acute, significant cardiovascular disease. Position/ configuration of pacemaker Satisfactory. A new finding compared to the prior study OSSEOUS STRUCTURES: No significant abnormalities. VISUALIZED UPPER ABDOMEN: Normal. OTHER FINDINGS: None. IMPRESSION: No active disease. No acute/significant interval changes.
[2018-01-02] MEDS: Digoxin 125 mcg (0.125 mg) Tab PO SCH (19:00)
[2018-01-03] MEDS: Levothyroxine 100 MCG TAB PO SCH (06:52)
[2018-01-03] MEDS: Fluticasone-Salmeterol 250-50mcg Diskus INH SCH ×2 (07:20→19:05)
[2018-01-03] MEDS: (Novolog) Insulin Aspart, Recombinant 100 u/ml 10 ml vial SC SCH ×4 (08:25→21:19)
--- NOTE | 2018-01-03 08:25 | CP.PCM.PN ---
<Leonel Huerta - Last Filed: 01/04/18 08:48> Subjective - Date & Time of Evaluation Date of Evaluation: 01/03/18 Time of Evaluation: 08:23 - Subjective Subjective: CARDIOLOGY PROGRESS NOTE FOR DR. KRISTINE Huerta D.O PGY-1 Pt seen and examined at bedside this am. No acute or nursing events overnight, tolerating diet. Pt continues to complain of chest tightness and shortness of breath. She denies palpitations, headache, diophoresis, nausea, vomiting, headache, dizziness, abdominal pain, constipation, diarrhea. Objective - Vital Signs/Intake and Output Vital Signs (last 24 hours): Temp Pulse Resp BP Pulse Ox 98.2 F 58 L 18 110/68 98 01/03/18 07:00 01/03/18 07:00 01/03/18 07:00 01/03/18 07:00 01/03/18 07:00 Intake and Output: 01/03/18 01/03/18 06:59 18:59 Intake Total 480 50 Output Total 1700 Balance -1220 50 - Medications Medications: Current Medications Albuterol (Ventolin Hfa 90 Mcg/Actuation (8 G)) 1 puff INH RQ6 PRN PRN Reason: sob Apixaban (Eliquis) 2.5 mg PO BID [facility] Last Admin: 01/02/18 18:42 Dose: 2.5 mg Aspirin (Ecotrin) 81 mg PO DAILY [facility] Last Admin: 01/02/18 10:00 Dose: 81 mg Dextrose (Dextrose 50% Inj) 0 ml IV STAT PRN; Protocol PRN Reason: Hypoglycemia Protocol Dextrose (Glutose 15) 0 gm PO ONCE PRN; Protocol PRN Reason: Hypoglycemia Protocol Digoxin (Digoxin) 0.125 mg PO DAILY@1800 [facility] Last Admin: 01/02/18 19:00 Dose: Not Given Docusate Sodium (Colace) 200 mg PO HS [facility] Last Admin: 01/02/18 21:49 Dose: 200 mg Furosemide (Lasix) 40 mg IVP DAILY [facility] Last Admin: 01/02/18 10:40 Dose: 40 mg Gabapentin (Neurontin) 300 mg PO TID [facility] Last Admin: 01/02/18 18:42 Dose: 300 mg Glucagon (Glucagen Diagnostic Kit) 0 mg IM STAT PRN; Protocol PRN Reason: Hypoglycemia Protocol Home Med (Donepezil Hcl [Aricept Odt]) 1 tab PO DAILY [facility] Home Med (Lipase/Protease/Amylase [Zenpep Dr 3,000 Unit Capsule]) 2 cap PO BID [facility] Home Med (Sildenafil [Revatio]) 20 mg PO TID [facility] Dextrose (Dextrose 5% In Water 1000 Ml) 1,000 mls @ 0 mls/hr IV .Q0M PRN; Protocol; Per Protocol PRN Reason: Hypoglycemia Protocol Ibuprofen (Motrin Tab) 600 mg PO Q6 PRN PRN Reason: fever/pain Insulin Aspart (Novolog) 1 unit SC ACHS [facility] PRN Reason: Protocol Last Admin: 01/02/18 22:30 Dose: Not Given Levothyroxine Sodium (Synthroid) 100 mcg PO DAILY@0630 [facility] Last Admin: 01/03/18 06:52 Dose: 100 mcg Losartan Potassium (Cozaar) 50 mg PO DAILY [facility] Last Admin: 01/02/18 10:00 Dose: Not Given Magnesium Oxide (Mag-Ox) 400 mg PO DAILY [facility] Last Admin: 01/02/18 09:28 Dose: 400 mg Metoprolol Tartrate (Lopressor) 25 mg PO Q12 [facility] Last Admin: 01/02/18 21:52 Dose: Not Given Ondansetron HCl (Zofran Odt) 4 mg PO Q6 PRN PRN Reason: Nausea/Vomiting Pantoprazole Sodium (Protonix Ec Tab) 40 mg PO DAILY [facility] Last Admin: 01/02/18 09:46 Dose: 40 mg Rivastigmine (Exelon 9.5 Mg/24 Hr Patch) 1 patch TD DAILY [facility] Last Admin: 01/02/18 09:32 Dose: 1 patch Rosuvastatin Calcium (Crestor) 5 mg PO HS [facility] Last Admin: 01/02/18 21:50 Dose: 5 mg Fluticasone/Salmeterol (Advair Diskus 250/50) 1 puff INH RQ12 [facility] Last Admin: 01/03/18 07:20 Dose: Not Given Sitagliptin Phosphate (Januvia) 50 mg PO DAILY [facility] Last Admin: 01/02/18 09:43 Dose: Not Given Sucralfate (Carafate Oral Susp) 1 gm PO BID [facility] Last Admin: 01/02/18 18:41 Dose: 1 gm Tolterodine Tartrate (Detrol La) 4 mg PO DAILY [facility] Last Admin: 01/02/18 09:32 Dose: 4 mg Zolpidem Tartrate (Ambien) 5 mg PO HS PRN PRN Reason: Insomnia - Labs Labs: 01/01/18 16:27 01/01/18 16:27 PT 15.7 SECONDS (9.7-12.2) H 01/01/18 16:27 INR 1.4 01/01/18 16:27 APTT 39 SECONDS (21-34) H 01/01/18 16:27 - Constitutional Appears: Well, Non-toxic, No Acute Distress - Head Exam Head Exam: NORMAL INSPECTION, NORMOCEPHALIC - Eye Exam Eye Exam: Normal appearance Additional comments: R ocular prosthesis - ENT Exam ENT Exam: Mucous Membranes Moist, Normal Exam - Neck Exam Neck Exam: Normal Inspection - Respiratory Exam Respiratory Exam: Rales (b/l), NORMAL BREATHING PATTERN - Cardiovascular Exam Cardiovascular Exam: Irregular Rhythm, +S1, +S2 - GI/Abdominal Exam GI & Abdominal Exam: Soft, Normal Bowel Sounds - Extremities Exam Extremities Exam: Joint Swelling, Pedal Edema - Back Exam Back Exam: NORMAL INSPECTION - Neurological Exam Neurological Exam: Alert, Awake, Oriented x3 - Psychiatric Exam Psychiatric exam: Normal Affect, Normal Mood - Skin Skin Exam: Dry, Intact, Warm Assessment and Plan - Assessment and Plan (Free Text) Assessment: 82 y/o F w/ pmhx of diastolic CHF, pulmonary HTN, nonischemic cardiomyopathy w/ pacemaker, Afib on eloquis, DM2, HTN, COPD, Hypothyroidism, HLD, PUD admitted for acute on chronic CHF exacerbation Plan: Acute on Chronic diastolic CHF exacerbation BNP 2850-->2970--> 1700. BNP improving Continue lasix 40mg IVP daily. continue home digoxin 0.125 qd PT Eval. Encourage ambulation as tolerated Pulmonary HTN continue sildenafil Afib continue home eliquis 2.5mg bid HTN continue losartan 50mg qd continue metoprolol 25mg q12 HLD continue rosuvastatin continue aspirin DM continue home insulin, sitagliptin Case seen, examined and discussed with attending physician, Dr. Pendleton. Further recs per him. <Rony Pendleton - Last Filed: 01/05/18 18:35> Objective - Vital Signs/Intake and Output Vital Signs (last 24 hours): Temp Pulse Resp BP Pulse Ox 97.8 F 60 20 122/80 98 01/05/18 15:00 01/05/18 16:00 01/05/18 15:00 01/05/18 18:22 01/05/18 15:00 Intake and Output: 01/05/18 01/05/18 06:59 18:59 Output Total 300 Balance -300 - Medications Medications: Current Medications Acetaminophen (Tylenol 650mg/20.3ml Solution Ud) 650 mg PO Q6 PRN PRN Reason: Pain, moderate (4-7) Albuterol (Ventolin Hfa 90 Mcg/Actuation (8 G)) 1 puff INH RQ6 PRN PRN Reason: sob Apixaban (Eliquis) 2.5 mg PO BID [facility] Last Admin: 01/05/18 18:12 Dose: 2.5 mg Aspirin (Ecotrin) 81 mg PO DAILY [facility] Last Admin: 01/05/18 10:33 Dose: 81 mg Dextrose (Dextrose 50% Inj) 0 ml IV STAT PRN; Protocol PRN Reason: Hypoglycemia Protocol Dextrose (Glutose 15) 0 gm PO ONCE PRN; Protocol PRN Reason: Hypoglycemia Protocol Digoxin (Digoxin) 0.125 mg PO DAILY@1800 [facility] Last Admin: 01/05/18 18:12 Dose: 0.125 mg Docusate Sodium (Colace) 200 mg PO [facility] Last Admin: 01/04/18 21:45 Dose: 200 mg Donepezil HCl (Aricept) 10 mg PO HS [facility] Last Admin: 01/04/18 21:45 Dose: 10 mg Furosemide (Lasix) 40 mg IVP BID [facility] Last Admin: 01/05/18 18:22 Dose: 40 mg Gabapentin (Neurontin) 300 mg PO TID [facility] Last Admin: 01/05/18 18:13 Dose: 300 mg Glucagon (Glucagen Diagnostic Kit) 0 mg IM STAT PRN; Protocol PRN Reason: Hypoglycemia Protocol Home Med (Sildenafil [Revatio]) 20 mg PO TID [facility] Ibuprofen (Motrin Tab) 600 mg PO Q6 PRN PRN Reason: fever/pain Last Admin: 01/05/18 10:48 Dose: 600 mg Insulin Aspart (Novolog) 1 unit SC ACHS [facility] PRN Reason: Protocol Last Admin: 01/05/18 16:24 Dose: Not Given Levothyroxine Sodium (Synthroid) 100 mcg PO DAILY@0630 [facility] Last Admin: 01/05/18 05:45 Dose: 100 mcg Magnesium Oxide (Mag-Ox) 400 mg PO DAILY [facility] Last Admin: 01/05/18 10:32 Dose: 400 mg Metoprolol Tartrate (Lopressor) 25 mg PO Q12 [facility] Last Admin: 01/05/18 10:00 Dose: 25 mg Ondansetron HCl (Zofran Odt) 4 mg PO Q6 PRN PRN Reason: Nausea/Vomiting Last Admin: 01/04/18 10:49 Dose: 4 mg Pantoprazole Sodium (Protonix Ec Tab) 40 mg PO DAILY [facility] Last Admin: 01/05/18 10:33 Dose: 40 mg Rivastigmine (Exelon 9.5 Mg/24 Hr Patch) 1 patch TD DAILY [facility] Last Admin: 01/05/18 10:41 Dose: 1 patch Rosuvastatin Calcium (Crestor) 5 mg PO HS [facility] Last Admin: 01/04/18 21:45 Dose: 5 mg Fluticasone/Salmeterol (Advair Diskus 250/50) 1 puff INH RQ12 [facility] Last Admin: 01/05/18 08:02 Dose: 1 puff Sitagliptin Phosphate (Januvia) 50 mg PO DAILY [facility] Last Admin: 01/05/18 10:33 Dose: 50 mg Spironolactone (Aldactone) 25 mg PO DAILY [facility] Last Admin: 01/05/18 10:53 Dose: 25 mg Sucralfate (Carafate Oral Susp) 1 gm PO BID [facility] Last Admin: 01/05/18 18:12 Dose: 1 gm Tolterodine Tartrate (Detrol La) 4 mg PO DAILY [facility] Last Admin: 01/05/18 10:34 Dose: 4 mg Zolpidem Tartrate (Ambien) 5 mg PO HS PRN PRN Reason: Insomnia Last Admin: 01/04/18 21:42 Dose: 5 mg - Labs Labs: 01/05/18 07:35 01/05/18 07:35 PT 15.7 SECONDS (9.7-12.2) H 01/01/18 16:27 INR 1.4 01/01/18 16:27 APTT 39 SECONDS (21-34) H 01/01/18 16:27 Attending/Attestation - Attestation I have personally seen and examined this patient.: Yes I have fully participated in the care of the patient.: Yes I have reviewed all pertinent clinical information, including history, physical exam and plan: Yes
[2018-01-03 08:33] LABS: BASO % 0.3 % (0.0-2.0); EOS # 0.1 K/uL (0.0-0.7); EOS % 1.7 % (0.0-4.0); HEMOGLOBIN 12.7 g/dL (11.0-16.0); LYMPH # 2.7 K/uL (1.0-4.3); LYMPH % 46.7 % (20.0-40.0); MEAN CORPUSCULAR HEMOGLOBIN 26.9 pg (27.0-31.0); MEAN CORPUSCULAR HGB CONC 32.4 g/dL (33.0-37.0); MEAN PLATELET VOLUME 9.2 fL (7.2-11.7); MONO # 0.7 K/uL (0.0-0.8); MONO % 12.3 % (0.0-10.0); NEUT # 2.3 K/uL (1.8-7.0); NRBC % 0.1 % (0.0-2.0); RBC 4.73 Mil/uL (3.80-5.20); RED CELL DISTRIBUTION WIDTH 16.1 % (11.5-14.5); WHITE BLOOD COUNT 5.8 K/uL (4.8-10.8)
[2018-01-03 08:59] LABS: B-TYPE NATRIURETIC PEPTIDE 1700 pg/mL (0-900)
[2018-01-03 09:05] LABS: FREE T4 1.4 ng/dL (0.78-2.19)
[2018-01-03 09:21] LABS: ALB/GLOB RATIO 1.4 (1.0-2.1); ALBUMIN 3.4 g/dL (3.5-5.0); ALT/SGPT 34 U/L (9-52); AST/SGOT 25 U/L (14-36); BLOOD UREA NITROGEN 18 mg/dL (7-17); CALCIUM 9.1 mg/dl (8.6-10.4); GFR NON-AFRICAN AMERICAN > 60
[2018-01-03] MEDS: Sucralfate 1 gm/10 ml Oral Susp UD PO SCH ×2 (10:31→18:27)
[2018-01-03] MEDS: Pantoprazole 40 mg EC Tab PO SCH (10:32)
[2018-01-03] MEDS: Tolterodine 4 mg ER Cap PO SCH (10:32)
[2018-01-03] MEDS: Magnesium Oxide 400 mg Tab UD PO SCH (10:32)
[2018-01-03] MEDS ORDERED: Magnesium Hydroxide Susp 30 ml UD PO ONE ×2 (12:28→13:45)
--- NOTE | 2018-01-03 13:01 | CP.PCM.PN ---
Subjective - Date & Time of Evaluation Date of Evaluation: 01/03/18 Time of Evaluation: 12:58 - Subjective Subjective: feel weeke pain feet sob Objective - Vital Signs/Intake and Output Vital Signs (last 24 hours): Temp Pulse Resp BP Pulse Ox 98.2 F 58 L 18 101/65 98 01/03/18 07:00 01/03/18 08:00 01/03/18 07:00 01/03/18 10:36 01/03/18 07:00 Intake and Output: 01/03/18 01/03/18 06:59 18:59 Intake Total 480 50 Output Total 1700 Balance -1220 50 - Medications Medications: Current Medications Albuterol (Ventolin Hfa 90 Mcg/Actuation (8 G)) 1 puff INH RQ6 PRN PRN Reason: sob Apixaban (Eliquis) 2.5 mg PO BID [facility] Last Admin: 01/03/18 10:32 Dose: 2.5 mg Aspirin (Ecotrin) 81 mg PO DAILY [facility] Last Admin: 01/03/18 10:31 Dose: 81 mg Dextrose (Dextrose 50% Inj) 0 ml IV STAT PRN; Protocol PRN Reason: Hypoglycemia Protocol Dextrose (Glutose 15) 0 gm PO ONCE PRN; Protocol PRN Reason: Hypoglycemia Protocol Digoxin (Digoxin) 0.125 mg PO DAILY@1800 [facility] Last Admin: 01/02/18 19:00 Dose: Not Given Docusate Sodium (Colace) 200 mg PO HS [facility] Last Admin: 01/02/18 21:49 Dose: 200 mg Furosemide (Lasix) 40 mg IVP DAILY [facility] Last Admin: 01/03/18 10:36 Dose: 40 mg Gabapentin (Neurontin) 300 mg PO TID [facility] Last Admin: 01/03/18 10:32 Dose: 300 mg Glucagon (Glucagen Diagnostic Kit) 0 mg IM STAT PRN; Protocol PRN Reason: Hypoglycemia Protocol Home Med (Donepezil Hcl [Aricept Odt]) 1 tab PO DAILY [facility] Home Med (Lipase/Protease/Amylase [Zenpep Dr 3,000 Unit Capsule]) 2 cap PO BID [facility] Home Med (Sildenafil [Revatio]) 20 mg PO TID [facility] Dextrose (Dextrose 5% In Water 1000 Ml) 1,000 mls @ 0 mls/hr IV .Q0M PRN; Protocol; Per Protocol PRN Reason: Hypoglycemia Protocol Ibuprofen (Motrin Tab) 600 mg PO Q6 PRN PRN Reason: fever/pain Insulin Aspart (Novolog) 1 unit SC ACHS [facility] PRN Reason: Protocol Last Admin: 01/03/18 12:25 Dose: Not Given Levothyroxine Sodium (Synthroid) 100 mcg PO DAILY@0630 [facility] Last Admin: 01/03/18 06:52 Dose: 100 mcg Losartan Potassium (Cozaar) 50 mg PO DAILY [facility] Last Admin: 01/03/18 11:27 Dose: Not Given Magnesium Oxide (Mag-Ox) 400 mg PO DAILY [facility] Last Admin: 01/03/18 10:32 Dose: 400 mg Metoprolol Tartrate (Lopressor) 25 mg PO Q12 [facility] Last Admin: 01/03/18 10:24 Dose: Not Given Ondansetron HCl (Zofran Odt) 4 mg PO Q6 PRN PRN Reason: Nausea/Vomiting Pantoprazole Sodium (Protonix Ec Tab) 40 mg PO DAILY [facility] Last Admin: 01/03/18 10:32 Dose: 40 mg Rivastigmine (Exelon 9.5 Mg/24 Hr Patch) 1 patch TD DAILY [facility] Last Admin: 01/03/18 10:31 Dose: 1 patch Rosuvastatin Calcium (Crestor) 5 mg PO HS [facility] Last Admin: 01/02/18 21:50 Dose: 5 mg Fluticasone/Salmeterol (Advair Diskus 250/50) 1 puff INH RQ12 [facility] Last Admin: 01/03/18 07:20 Dose: Not Given Sitagliptin Phosphate (Januvia) 50 mg PO DAILY [facility] Last Admin: 01/03/18 11:28 Dose: Not Given Sucralfate (Carafate Oral Susp) 1 gm PO BID [facility] Last Admin: 01/03/18 10:31 Dose: 1 gm Tolterodine Tartrate (Detrol La) 4 mg PO DAILY [facility] Last Admin: 01/03/18 10:32 Dose: 4 mg Zolpidem Tartrate (Ambien) 5 mg PO HS PRN PRN Reason: Insomnia - Labs Labs: 01/03/18 08:16 01/03/18 08:16 PT 15.7 SECONDS (9.7-12.2) H 01/01/18 16:27 INR 1.4 01/01/18 16:27 APTT 39 SECONDS (21-34) H 01/01/18 16:27 - Constitutional Appears: Non-toxic - Head Exam Head Exam: NORMAL INSPECTION - Eye Exam Eye Exam: Normal appearance Additional comments: has one eye - ENT Exam ENT Exam: Normal Exam - Neck Exam Neck Exam: Normal Inspection - Respiratory Exam Respiratory Exam: Decreased Breath Sounds - Cardiovascular Exam Cardiovascular Exam: REGULAR RHYTHM, +S1, +S2, +S4 - GI/Abdominal Exam GI & Abdominal Exam: Normal Bowel Sounds - Extremities Exam Additional comments: painfull sole - Back Exam Back Exam: NORMAL INSPECTION - Neurological Exam Neurological Exam: Alert, Awake, Oriented x3 - Psychiatric Exam Psychiatric exam: Normal Affect - Skin Skin Exam: Normal Color Assessment and Plan - Assessment and Plan (Free Text) Assessment: chf dm copd painfull feet generalised weekness Plan: as per orders
[2018-01-03] MEDS: LIPASE/PROTEASE/AMYLASE 4,200 U ECC PO SCH (18:27)
[2018-01-03] MEDS: Digoxin 125 mcg (0.125 mg) Tab PO SCH (19:03)
--- NOTE | 2018-01-03 23:54 | CARD ---
APPROVED REPORT Date of service: 01/02/2018 EKG Measurement Heart [id number] <Conclusion> Atrial fibrillation with slow ventricular response Left axis deviation Low voltage QRS Abnormal ECG
[2018-01-04] MEDS: Levothyroxine 100 MCG TAB PO SCH (06:12)
[2018-01-04 07:36] LABS: IMMUNOGLOBULIN G 525.6 mg/dL (700.0-1600.0); IMMUNOGLOBULIN M 49.3 mg/dL (40.0-230.0)
[2018-01-04] MEDS: (Novolog) Insulin Aspart, Recombinant 100 u/ml 10 ml vial SC SCH ×4 (08:00→22:00)
--- NOTE | 2018-01-04 08:50 | CP.PCM.PN ---
<Leonel Huerta - Last Filed: 01/04/18 15:50> Subjective - Date & Time of Evaluation Date of Evaluation: 01/04/18 Time of Evaluation: 08:48 - Subjective Subjective: CARDIOLOGY PROGRESS NOTE FOR DR. KRISTINE Huerta D.O. PGY-1 Pt seen and examined at bedside this am. No acute nursing events overnight. Pt continue to complain of shortness of breath, leg pain and constipation. She denies chest pain, palpitations, diophoresis, headache, dizziness, nausea, vomiting, diarrhea. Objective - Vital Signs/Intake and Output Vital Signs (last 24 hours): Temp Pulse Resp BP Pulse Ox 98.2 F 67 18 112/75 94 L 01/04/18 07:05 01/04/18 07:05 01/04/18 07:05 01/04/18 07:05 01/04/18 07:05 Intake and Output: 01/04/18 01/04/18 06:59 18:59 Output Total 250 Balance -250 - Medications Medications: Current Medications Albuterol (Ventolin Hfa 90 Mcg/Actuation (8 G)) 1 puff INH RQ6 PRN PRN Reason: sob Apixaban (Eliquis) 2.5 mg PO BID [facility] Last Admin: 01/03/18 18:27 Dose: 2.5 mg Aspirin (Ecotrin) 81 mg PO DAILY [facility] Last Admin: 01/03/18 10:31 Dose: 81 mg Dextrose (Dextrose 50% Inj) 0 ml IV STAT PRN; Protocol PRN Reason: Hypoglycemia Protocol Dextrose (Glutose 15) 0 gm PO ONCE PRN; Protocol PRN Reason: Hypoglycemia Protocol Digoxin (Digoxin) 0.125 mg PO DAILY@1800 [facility] Last Admin: 01/03/18 19:03 Dose: 0.125 mg Docusate Sodium (Colace) 200 mg PO HS [facility] Last Admin: 01/03/18 21:18 Dose: 200 mg Donepezil HCl (Aricept) 10 mg PO HS [facility] Last Admin: 01/03/18 21:18 Dose: 10 mg Furosemide (Lasix) 60 mg IVP Q12 [facility] Gabapentin (Neurontin) 300 mg PO TID [facility] Last Admin: 01/03/18 18:27 Dose: 300 mg Glucagon (Glucagen Diagnostic Kit) 0 mg IM STAT PRN; Protocol PRN Reason: Hypoglycemia Protocol Home Med (Sildenafil [Revatio]) 20 mg PO TID [facility] Dextrose (Dextrose 5% In Water 1000 Ml) 1,000 mls @ 0 mls/hr IV .Q0M PRN; Protocol; Per Protocol PRN Reason: Hypoglycemia Protocol Ibuprofen (Motrin Tab) 600 mg PO Q6 PRN PRN Reason: fever/pain Insulin Aspart (Novolog) 1 unit SC ACHS [facility] PRN Reason: Protocol Last Admin: 01/03/18 21:19 Dose: Not Given Levothyroxine Sodium (Synthroid) 100 mcg PO DAILY@0630 [facility] Last Admin: 01/04/18 06:12 Dose: 100 mcg Losartan Potassium (Cozaar) 50 mg PO DAILY [facility] Last Admin: 01/03/18 11:27 Dose: Not Given Magnesium Hydroxide (Milk Of Magnesia) 30 ml PO ONCE ONE Stop: 01/04/18 08:47 Magnesium Oxide (Mag-Ox) 400 mg PO DAILY [facility] Last Admin: 01/03/18 10:32 Dose: 400 mg Metoprolol Tartrate (Lopressor) 25 mg PO Q12 [facility] Last Admin: 01/03/18 21:17 Dose: Not Given Ondansetron HCl (Zofran Odt) 4 mg PO Q6 PRN PRN Reason: Nausea/Vomiting Pantoprazole Sodium (Protonix Ec Tab) 40 mg PO DAILY [facility] Last Admin: 01/03/18 10:32 Dose: 40 mg Rivastigmine (Exelon 9.5 Mg/24 Hr Patch) 1 patch TD DAILY [facility] Last Admin: 01/03/18 10:31 Dose: 1 patch Rosuvastatin Calcium (Crestor) 5 mg PO HS [facility] Last Admin: 01/03/18 21:18 Dose: 5 mg Fluticasone/Salmeterol (Advair Diskus 250/50) 1 puff INH RQ12 [facility] Last Admin: 01/03/18 19:05 Dose: 1 puff Sitagliptin Phosphate (Januvia) 50 mg PO DAILY [facility] Last Admin: 01/03/18 11:28 Dose: Not Given Sucralfate (Carafate Oral Susp) 1 gm PO BID [facility] Last Admin: 01/03/18 18:27 Dose: 1 gm Tolterodine Tartrate (Detrol La) 4 mg PO DAILY [facility] Last Admin: 01/03/18 10:32 Dose: 4 mg Zolpidem Tartrate (Ambien) 5 mg PO HS PRN PRN Reason: Insomnia Last Admin: 01/03/18 21:23 Dose: 5 mg - Labs Labs: 01/03/18 08:16 01/03/18 08:16 PT 15.7 SECONDS (9.7-12.2) H 01/01/18 16:27 INR 1.4 01/01/18 16:27 APTT 39 SECONDS (21-34) H 01/01/18 16:27 - Constitutional Appears: Well, Non-toxic, No Acute Distress - Head Exam Head Exam: NORMAL INSPECTION, NORMOCEPHALIC - Eye Exam Eye Exam: Normal appearance Additional comments: R ocular prosthesis - ENT Exam ENT Exam: Mucous Membranes Moist, Normal Exam - Neck Exam Neck Exam: Normal Inspection - Respiratory Exam Respiratory Exam: Rales (b/l), NORMAL BREATHING PATTERN - Cardiovascular Exam Cardiovascular Exam: REGULAR RHYTHM, +S1, +S2 Additional comments: Prominent P2 - GI/Abdominal Exam GI & Abdominal Exam: Soft. absent: Tenderness - Extremities Exam Extremities Exam: Joint Swelling, Pedal Edema - Back Exam Back Exam: NORMAL INSPECTION - Neurological Exam Neurological Exam: Alert, Awake, Oriented x3 - Psychiatric Exam Psychiatric exam: Normal Affect, Normal Mood - Skin Skin Exam: Dry, Intact, Warm Assessment and Plan - Assessment and Plan (Free Text) Assessment: 82 y/o F w/ pmhx of diastolic CHF, pulmonary HTN, nonischemic cardiomyopathy w/ pacemaker, Afib on eloquis, DM2, HTN, COPD, Hypothyroidism, HLD, PUD admitted for acute on chronic CHF exacerbation Plan: Acute on Chronic diastolic CHF exacerbation BNP 2850-->2970--> 1700. BNP improving Increase lasix to 60mg IVP q12. Monitor renal function closely continue home digoxin 0.125 qd PT Eval. Encourage ambulation as tolerated Pulmonary HTN continue sildenafil Afib continue home eliquis 2.5mg bid HTN continue losartan 50mg qd continue metoprolol 25mg q12 HLD continue rosuvastatin continue aspirin DM continue home insulin, sitagliptin Case seen, examined and discussed with attending physician, Dr. Pendleton. Further recs per him. <Rony Pendleton - Last Filed: 01/05/18 18:35> Objective - Vital Signs/Intake and Output Vital Signs (last 24 hours): Temp Pulse Resp BP Pulse Ox 97.8 F 60 20 122/80 98 01/05/18 15:00 01/05/18 16:00 01/05/18 15:00 01/05/18 18:22 01/05/18 15:00 Intake and Output: 01/05/18 01/05/18 06:59 18:59 Output Total 300 Balance -300 - Medications Medications: Current Medications Acetaminophen (Tylenol 650mg/20.3ml Solution Ud) 650 mg PO Q6 PRN PRN Reason: Pain, moderate (4-7) Albuterol (Ventolin Hfa 90 Mcg/Actuation (8 G)) 1 puff INH RQ6 PRN PRN Reason: sob Apixaban (Eliquis) 2.5 mg PO BID [facility] Last Admin: 01/05/18 18:12 Dose: 2.5 mg Aspirin (Ecotrin) 81 mg PO DAILY [facility] Last Admin: 01/05/18 10:33 Dose: 81 mg Dextrose (Dextrose 50% Inj) 0 ml IV STAT PRN; Protocol PRN Reason: Hypoglycemia Protocol Dextrose (Glutose 15) 0 gm PO ONCE PRN; Protocol PRN Reason: Hypoglycemia Protocol Digoxin (Digoxin) 0.125 mg PO DAILY@1800 [facility] Last Admin: 01/05/18 18:12 Dose: 0.125 mg Docusate Sodium (Colace) 200 mg PO [facility] Last Admin: 01/04/18 21:45 Dose: 200 mg Donepezil HCl (Aricept) 10 mg PO HS [facility] Last Admin: 01/04/18 21:45 Dose: 10 mg Furosemide (Lasix) 40 mg IVP BID [facility] Last Admin: 01/05/18 18:22 Dose: 40 mg Gabapentin (Neurontin) 300 mg PO TID [facility] Last Admin: 01/05/18 18:13 Dose: 300 mg Glucagon (Glucagen Diagnostic Kit) 0 mg IM STAT PRN; Protocol PRN Reason: Hypoglycemia Protocol Home Med (Sildenafil [Revatio]) 20 mg PO TID [facility] Ibuprofen (Motrin Tab) 600 mg PO Q6 PRN PRN Reason: fever/pain Last Admin: 01/05/18 10:48 Dose: 600 mg Insulin Aspart (Novolog) 1 unit SC ACHS [facility] PRN Reason: Protocol Last Admin: 01/05/18 16:24 Dose: Not Given Levothyroxine Sodium (Synthroid) 100 mcg PO DAILY@0630 [facility] Last Admin: 01/05/18 05:45 Dose: 100 mcg Magnesium Oxide (Mag-Ox) 400 mg PO DAILY [facility] Last Admin: 01/05/18 10:32 Dose: 400 mg Metoprolol Tartrate (Lopressor) 25 mg PO Q12 [facility] Last Admin: 01/05/18 10:00 Dose: 25 mg Ondansetron HCl (Zofran Odt) 4 mg PO Q6 PRN PRN Reason: Nausea/Vomiting Last Admin: 01/04/18 10:49 Dose: 4 mg Pantoprazole Sodium (Protonix Ec Tab) 40 mg PO DAILY [facility] Last Admin: 01/05/18 10:33 Dose: 40 mg Rivastigmine (Exelon 9.5 Mg/24 Hr Patch) 1 patch TD DAILY [facility] Last Admin: 01/05/18 10:41 Dose: 1 patch Rosuvastatin Calcium (Crestor) 5 mg PO HS [facility] Last Admin: 01/04/18 21:45 Dose: 5 mg Fluticasone/Salmeterol (Advair Diskus 250/50) 1 puff INH RQ12 [facility] Last Admin: 01/05/18 08:02 Dose: 1 puff Sitagliptin Phosphate (Januvia) 50 mg PO DAILY [facility] Last Admin: 01/05/18 10:33 Dose: 50 mg Spironolactone (Aldactone) 25 mg PO DAILY [facility] Last Admin: 01/05/18 10:53 Dose: 25 mg Sucralfate (Carafate Oral Susp) 1 gm PO BID [facility] Last Admin: 01/05/18 18:12 Dose: 1 gm Tolterodine Tartrate (Detrol La) 4 mg PO DAILY [facility] Last Admin: 01/05/18 10:34 Dose: 4 mg Zolpidem Tartrate (Ambien) 5 mg PO HS PRN PRN Reason: Insomnia Last Admin: 01/04/18 21:42 Dose: 5 mg - Labs Labs: 01/05/18 07:35 01/05/18 07:35 PT 15.7 SECONDS (9.7-12.2) H 01/01/18 16:27 INR 1.4 01/01/18 16:27 APTT 39 SECONDS (21-34) H 01/01/18 16:27 Attending/Attestation - Attestation I have personally seen and examined this patient.: Yes I have fully participated in the care of the patient.: Yes I have reviewed all pertinent clinical information, including history, physical exam and plan: Yes
[2018-01-04] MEDS ORDERED: Magnesium Hydroxide Susp 30 ml UD PO ONE (09:15)
[2018-01-04] MEDS: Sucralfate 1 gm/10 ml Oral Susp UD PO SCH ×2 (10:44→18:31)
[2018-01-04] MEDS: Fluticasone-Salmeterol 250-50mcg Diskus INH SCH ×2 (10:44→20:22)
[2018-01-04] MEDS: Magnesium Oxide 400 mg Tab UD PO SCH (10:44)
[2018-01-04] MEDS: Pantoprazole 40 mg EC Tab PO SCH (10:45)
[2018-01-04] MEDS: LIPASE/PROTEASE/AMYLASE 4,200 U ECC PO SCH ×2 (10:48→18:34)
[2018-01-04] MEDS: Tolterodine 4 mg ER Cap PO SCH (10:50)
--- NOTE | 2018-01-04 17:10 | CP.PCM.PN ---
Subjective - Date & Time of Evaluation Date of Evaluation: 01/04/18 Time of Evaluation: 17:08 - Subjective Subjective: pt c/o of severe pain both feet unable to walk bp low Objective - Vital Signs/Intake and Output Vital Signs (last 24 hours): Temp Pulse Resp BP Pulse Ox 98.0 F 54 L 20 86/59 L 97 01/04/18 15:00 01/04/18 15:00 01/04/18 15:00 01/04/18 15:00 01/04/18 15:00 Intake and Output: 01/04/18 01/04/18 06:59 18:59 Output Total 250 Balance -250 - Medications Medications: Current Medications Acetaminophen (Tylenol 650mg/20.3ml Solution Ud) 650 mg PO Q6 PRN PRN Reason: Pain, moderate (4-7) Albuterol (Ventolin Hfa 90 Mcg/Actuation (8 G)) 1 puff INH RQ6 PRN PRN Reason: sob Apixaban (Eliquis) 2.5 mg PO BID [facility] Last Admin: 01/04/18 10:50 Dose: 2.5 mg Aspirin (Ecotrin) 81 mg PO DAILY [facility] Last Admin: 01/04/18 10:45 Dose: 81 mg Dextrose (Dextrose 50% Inj) 0 ml IV STAT PRN; Protocol PRN Reason: Hypoglycemia Protocol Dextrose (Glutose 15) 0 gm PO ONCE PRN; Protocol PRN Reason: Hypoglycemia Protocol Digoxin (Digoxin) 0.125 mg PO DAILY@1800 [facility] Last Admin: 01/03/18 19:03 Dose: 0.125 mg Docusate Sodium (Colace) 200 mg PO [facility] Last Admin: 01/03/18 21:18 Dose: 200 mg Donepezil HCl (Aricept) 10 mg PO [facility] Last Admin: 01/03/18 21:18 Dose: 10 mg Furosemide (Lasix) 40 mg IVP BID [facility] Gabapentin (Neurontin) 300 mg PO TID [facility] Last Admin: 01/04/18 13:06 Dose: Not Given Glucagon (Glucagen Diagnostic Kit) 0 mg IM STAT PRN; Protocol PRN Reason: Hypoglycemia Protocol Home Med (Sildenafil [Revatio]) 20 mg PO TID [facility] Dextrose (Dextrose 5% In Water 1000 Ml) 1,000 mls @ 0 mls/hr IV .Q0M PRN; Protocol; Per Protocol PRN Reason: Hypoglycemia Protocol Ibuprofen (Motrin Tab) 600 mg PO Q6 PRN PRN Reason: fever/pain Last Admin: 01/04/18 10:42 Dose: 600 mg Insulin Aspart (Novolog) 1 unit SC ACHS [facility] PRN Reason: Protocol Last Admin: 01/04/18 12:22 Dose: Not Given Levothyroxine Sodium (Synthroid) 100 mcg PO DAILY@0630 [facility] Last Admin: 01/04/18 06:12 Dose: 100 mcg Magnesium Oxide (Mag-Ox) 400 mg PO DAILY [facility] Last Admin: 01/04/18 10:44 Dose: 400 mg Metoprolol Tartrate (Lopressor) 25 mg PO Q12 [facility] Last Admin: 01/04/18 10:51 Dose: 25 mg Ondansetron HCl (Zofran Odt) 4 mg PO Q6 PRN PRN Reason: Nausea/Vomiting Last Admin: 01/04/18 10:49 Dose: 4 mg Pantoprazole Sodium (Protonix Ec Tab) 40 mg PO DAILY [facility] Last Admin: 01/04/18 10:45 Dose: 40 mg Rivastigmine (Exelon 9.5 Mg/24 Hr Patch) 1 patch TD DAILY [facility] Last Admin: 01/04/18 10:51 Dose: 1 patch Rosuvastatin Calcium (Crestor) 5 mg PO HS [facility] Last Admin: 01/03/18 21:18 Dose: 5 mg Fluticasone/Salmeterol (Advair Diskus 250/50) 1 puff INH RQ12 [facility] Last Admin: 01/04/18 10:44 Dose: 1 puff Sitagliptin Phosphate (Januvia) 50 mg PO DAILY [facility] Last Admin: 01/04/18 10:53 Dose: Not Given Sucralfate (Carafate Oral Susp) 1 gm PO BID [facility] Last Admin: 01/04/18 10:44 Dose: 1 gm Tolterodine Tartrate (Detrol La) 4 mg PO DAILY [facility] Last Admin: 01/04/18 10:50 Dose: 4 mg Zolpidem Tartrate (Ambien) 5 mg PO HS PRN PRN Reason: Insomnia Last Admin: 01/03/18 21:23 Dose: 5 mg - Labs Labs: 01/03/18 08:16 01/03/18 08:16 PT 15.7 SECONDS (9.7-12.2) H 01/01/18 16:27 INR 1.4 01/01/18 16:27 APTT 39 SECONDS (21-34) H 01/01/18 16:27 - Constitutional Appears: Non-toxic - Eye Exam Additional comments: one eye - ENT Exam ENT Exam: Mucous Membranes Dry - Neck Exam Neck Exam: Full ROM - Respiratory Exam Respiratory Exam: Decreased Breath Sounds - Cardiovascular Exam Cardiovascular Exam: REGULAR RHYTHM - GI/Abdominal Exam GI & Abdominal Exam: Normal Bowel Sounds - Exam Exam: NORMAL INSPECTION - Extremities Exam Extremities Exam: Full ROM Additional comments: tender feet - Neurological Exam Neurological Exam: Alert, Awake, Oriented x3 - Psychiatric Exam Psychiatric exam: Normal Affect - Skin Skin Exam: Normal Color Assessment and Plan - Assessment and Plan (Free Text) Assessment: pain lboth feet Plan: podiatry cons cont as per orders
[2018-01-04 17:30] LABS: ALB/GLOB RATIO 1.4 (1.0-2.1); ALBUMIN 3.5 g/dL (3.5-5.0); ALT/SGPT 25 U/L (9-52); AST/SGOT 28 U/L (14-36); BLOOD UREA NITROGEN 21 mg/dL (7-17); CALCIUM 9.3 mg/dl (8.6-10.4); GFR NON-AFRICAN AMERICAN > 60
[2018-01-04] MEDS: Digoxin 125 mcg (0.125 mg) Tab PO SCH (18:32)
[2018-01-05] MEDS: Levothyroxine 100 MCG TAB PO SCH (05:45)
[2018-01-05 07:47] LABS: EOS # 0.1 K/uL (0.0-0.7); HEMOGLOBIN 13.1 g/dL (11.0-16.0); NRBC % 0.1 % (0.0-2.0); RBC 4.84 Mil/uL (3.80-5.20); RED CELL DISTRIBUTION WIDTH 15.4 % (11.5-14.5)
[2018-01-05] MEDS: (Novolog) Insulin Aspart, Recombinant 100 u/ml 10 ml vial SC SCH ×4 (08:00→21:44)
[2018-01-05 08:01] LABS: BASO % 0.5 % (0.0-2.0); EOS % 1.7 % (0.0-4.0); LYMPH % 46.8 % (20.0-40.0); MEAN CELL VOLUME 82.8 fL (81.0-99.0); MEAN CORPUSCULAR HEMOGLOBIN 27.1 pg (27.0-31.0); MEAN CORPUSCULAR HGB CONC 32.7 g/dL (33.0-37.0); MEAN PLATELET VOLUME 9.1 fL (7.2-11.7); MONO # 0.7 K/uL (0.0-0.8); MONO % 10.1 % (0.0-10.0); NEUT # 2.7 K/uL (1.8-7.0); NEUT % 40.9 % (50.0-75.0); WHITE BLOOD COUNT 6.5 K/uL (4.8-10.8)
[2018-01-05] MEDS: Fluticasone-Salmeterol 250-50mcg Diskus INH SCH ×2 (08:02→19:14)
[2018-01-05 08:17] LABS: B-TYPE NATRIURETIC PEPTIDE 1770 pg/mL (0-900)
[2018-01-05 08:42] LABS: ALB/GLOB RATIO 1.4 (1.0-2.1); ALBUMIN 3.3 g/dL (3.5-5.0); ALT/SGPT 29 U/L (9-52); AST/SGOT 23 U/L (14-36); BLOOD UREA NITROGEN 21 mg/dL (7-17); CALCIUM 8.9 mg/dl (8.6-10.4); GFR NON-AFRICAN AMERICAN > 60
[2018-01-05] MEDS: LIPASE/PROTEASE/AMYLASE 4,200 U ECC PO SCH ×2 (08:48→18:14)
--- NOTE | 2018-01-05 09:59 | CP.PCM.PN ---
Subjective - Date & Time of Evaluation Date of Evaluation: 01/05/18 Time of Evaluation: 09:56 - Subjective Subjective: feels cold feet hurts unable to walk Objective - Vital Signs/Intake and Output Vital Signs (last 24 hours): Temp Pulse Resp BP Pulse Ox 98.5 F 60 20 99/61 L 100 01/05/18 07:25 01/05/18 07:25 01/05/18 07:25 01/05/18 07:25 01/05/18 07:25 Intake and Output: 01/05/18 01/05/18 06:59 18:59 Output Total 300 Balance -300 - Medications Medications: Current Medications Acetaminophen (Tylenol 650mg/20.3ml Solution Ud) 650 mg PO Q6 PRN PRN Reason: Pain, moderate (4-7) Albuterol (Ventolin Hfa 90 Mcg/Actuation (8 G)) 1 puff INH RQ6 PRN PRN Reason: sob Apixaban (Eliquis) 2.5 mg PO BID [facility] Last Admin: 01/04/18 18:33 Dose: 2.5 mg Aspirin (Ecotrin) 81 mg PO DAILY [facility] Last Admin: 01/04/18 10:45 Dose: 81 mg Dextrose (Dextrose 50% Inj) 0 ml IV STAT PRN; Protocol PRN Reason: Hypoglycemia Protocol Dextrose (Glutose 15) 0 gm PO ONCE PRN; Protocol PRN Reason: Hypoglycemia Protocol Digoxin (Digoxin) 0.125 mg PO DAILY@1800 [facility] Last Admin: 01/04/18 18:32 Dose: Not Given Docusate Sodium (Colace) 200 mg PO [facility] Last Admin: 01/04/18 21:45 Dose: 200 mg Donepezil HCl (Aricept) 10 mg PO [facility] Last Admin: 01/04/18 21:45 Dose: 10 mg Furosemide (Lasix) 40 mg IVP BID [facility] Last Admin: 01/04/18 18:00 Dose: Not Given Gabapentin (Neurontin) 300 mg PO TID [facility] Last Admin: 01/04/18 18:34 Dose: 300 mg Glucagon (Glucagen Diagnostic Kit) 0 mg IM STAT PRN; Protocol PRN Reason: Hypoglycemia Protocol Home Med (Sildenafil [Revatio]) 20 mg PO TID [facility] Ibuprofen (Motrin Tab) 600 mg PO Q6 PRN PRN Reason: fever/pain Last Admin: 01/04/18 10:42 Dose: 600 mg Insulin Aspart (Novolog) 1 unit SC ACHS [facility] PRN Reason: Protocol Last Admin: 01/05/18 08:00 Dose: Not Given Levothyroxine Sodium (Synthroid) 100 mcg PO DAILY@0630 [facility] Last Admin: 01/05/18 05:45 Dose: 100 mcg Magnesium Oxide (Mag-Ox) 400 mg PO DAILY [facility] Last Admin: 01/04/18 10:44 Dose: 400 mg Metoprolol Tartrate (Lopressor) 25 mg PO Q12 [facility] Last Admin: 01/04/18 22:00 Dose: Not Given Ondansetron HCl (Zofran Odt) 4 mg PO Q6 PRN PRN Reason: Nausea/Vomiting Last Admin: 01/04/18 10:49 Dose: 4 mg Pantoprazole Sodium (Protonix Ec Tab) 40 mg PO DAILY [facility] Last Admin: 01/04/18 10:45 Dose: 40 mg Rivastigmine (Exelon 9.5 Mg/24 Hr Patch) 1 patch TD DAILY [facility] Last Admin: 01/04/18 10:51 Dose: 1 patch Rosuvastatin Calcium (Crestor) 5 mg PO HS [facility] Last Admin: 01/04/18 21:45 Dose: 5 mg Fluticasone/Salmeterol (Advair Diskus 250/50) 1 puff INH RQ12 [facility] Last Admin: 01/05/18 08:02 Dose: 1 puff Sitagliptin Phosphate (Januvia) 50 mg PO DAILY [facility] Last Admin: 01/04/18 10:53 Dose: Not Given Spironolactone (Aldactone) 25 mg PO DAILY [facility] Sucralfate (Carafate Oral Susp) 1 gm PO BID [facility] Last Admin: 01/04/18 18:31 Dose: 1 gm Tolterodine Tartrate (Detrol La) 4 mg PO DAILY [facility] Last Admin: 01/04/18 10:50 Dose: 4 mg Zolpidem Tartrate (Ambien) 5 mg PO HS PRN PRN Reason: Insomnia Last Admin: 01/04/18 21:42 Dose: 5 mg - Labs Labs: 01/05/18 07:35 01/05/18 07:35 PT 15.7 SECONDS (9.7-12.2) H 01/01/18 16:27 INR 1.4 01/01/18 16:27 APTT 39 SECONDS (21-34) H 01/01/18 16:27 - Constitutional Appears: Older Than Stated Age - Head Exam Head Exam: NORMAL INSPECTION - Eye Exam Additional comments: one eye - ENT Exam ENT Exam: Mucous Membranes Moist - Respiratory Exam Respiratory Exam: Clear to Ausculation Bilateral - Cardiovascular Exam Cardiovascular Exam: REGULAR RHYTHM - GI/Abdominal Exam GI & Abdominal Exam: Normal Bowel Sounds - Extremities Exam Extremities Exam: Tenderness - Back Exam Back Exam: NORMAL INSPECTION - Neurological Exam Neurological Exam: Alert, Oriented x3 - Psychiatric Exam Psychiatric exam: Depressed - Skin Skin Exam: Normal Color Assessment and Plan - Assessment and Plan (Free Text) Assessment: painful feet inability to walk chf dmid copd obesity r/o pvd Plan: doppler lower ext pt
[2018-01-05] MEDS: Magnesium Oxide 400 mg Tab UD PO SCH (10:32)
[2018-01-05] MEDS: Pantoprazole 40 mg EC Tab PO SCH (10:33)
[2018-01-05] MEDS: Tolterodine 4 mg ER Cap PO SCH (10:34)
[2018-01-05] MEDS: Sucralfate 1 gm/10 ml Oral Susp UD PO SCH ×2 (10:43→18:12)
[2018-01-05 11:04] LABS: URIC ACID 5.2 mg/dL (2.2-7.5)
--- NOTE | 2018-01-05 15:37 | RAD ---
Date of service: 01/04/2018 PROCEDURE: Bilateral Feet Radiographs. HISTORY: Pain in both feet COMPARISON: None. FINDINGS: BONES: There is diffuse bone demineralization. There is no acute displaced fracture or bone destruction. Bone alignment is normal. There is a small left plantar calcaneal spur. JOINTS: Right Foot: Normal. No osteoarthritis. Left Foot: Normal. No osteoarthritis. SOFT TISSUES: Right Foot: Normal. Left Foot: Normal. OTHER FINDINGS: None. IMPRESSION: No acute fracture or dislocation. Prominent left plantar calcaneal spur.
[2018-01-05] MEDS: Digoxin 125 mcg (0.125 mg) Tab PO SCH (18:12)
--- NOTE | 2018-01-05 18:40 | CP.PCM.PN ---
Subjective - Date & Time of Evaluation Date of Evaluation: 01/05/18 Time of Evaluation: 18:37 - Subjective Subjective: c/o leg discomfort Objective - Vital Signs/Intake and Output Vital Signs (last 24 hours): Temp Pulse Resp BP Pulse Ox 97.8 F 60 20 122/80 98 01/05/18 15:00 01/05/18 16:00 01/05/18 15:00 01/05/18 18:22 01/05/18 15:00 Intake and Output: 01/05/18 01/05/18 06:59 18:59 Output Total 300 Balance -300 - Medications Medications: Current Medications Acetaminophen (Tylenol 650mg/20.3ml Solution Ud) 650 mg PO Q6 PRN PRN Reason: Pain, moderate (4-7) Albuterol (Ventolin Hfa 90 Mcg/Actuation (8 G)) 1 puff INH RQ6 PRN PRN Reason: sob Apixaban (Eliquis) 2.5 mg PO BID [facility] Last Admin: 01/05/18 18:12 Dose: 2.5 mg Aspirin (Ecotrin) 81 mg PO DAILY [facility] Last Admin: 01/05/18 10:33 Dose: 81 mg Dextrose (Dextrose 50% Inj) 0 ml IV STAT PRN; Protocol PRN Reason: Hypoglycemia Protocol Dextrose (Glutose 15) 0 gm PO ONCE PRN; Protocol PRN Reason: Hypoglycemia Protocol Digoxin (Digoxin) 0.125 mg PO DAILY@1800 [facility] Last Admin: 01/05/18 18:12 Dose: 0.125 mg Docusate Sodium (Colace) 200 mg PO [facility] Last Admin: 01/04/18 21:45 Dose: 200 mg Donepezil HCl (Aricept) 10 mg PO [facility] Last Admin: 01/04/18 21:45 Dose: 10 mg Furosemide (Lasix) 40 mg IVP BID [facility] Last Admin: 01/05/18 18:22 Dose: 40 mg Gabapentin (Neurontin) 300 mg PO TID [facility] Last Admin: 01/05/18 18:13 Dose: 300 mg Glucagon (Glucagen Diagnostic Kit) 0 mg IM STAT PRN; Protocol PRN Reason: Hypoglycemia Protocol Home Med (Sildenafil [Revatio]) 20 mg PO TID [facility] Ibuprofen (Motrin Tab) 600 mg PO Q6 PRN PRN Reason: fever/pain Last Admin: 01/05/18 10:48 Dose: 600 mg Insulin Aspart (Novolog) 1 unit SC ACHS [facility] PRN Reason: Protocol Last Admin: 01/05/18 16:24 Dose: Not Given Levothyroxine Sodium (Synthroid) 100 mcg PO DAILY@0630 [facility] Last Admin: 01/05/18 05:45 Dose: 100 mcg Magnesium Oxide (Mag-Ox) 400 mg PO DAILY [facility] Last Admin: 01/05/18 10:32 Dose: 400 mg Metoprolol Tartrate (Lopressor) 25 mg PO Q12 [facility] Last Admin: 01/05/18 10:00 Dose: 25 mg Ondansetron HCl (Zofran Odt) 4 mg PO Q6 PRN PRN Reason: Nausea/Vomiting Last Admin: 01/04/18 10:49 Dose: 4 mg Pantoprazole Sodium (Protonix Ec Tab) 40 mg PO DAILY [facility] Last Admin: 01/05/18 10:33 Dose: 40 mg Rivastigmine (Exelon 9.5 Mg/24 Hr Patch) 1 patch TD DAILY [facility] Last Admin: 01/05/18 10:41 Dose: 1 patch Rosuvastatin Calcium (Crestor) 5 mg PO HS [facility] Last Admin: 01/04/18 21:45 Dose: 5 mg Fluticasone/Salmeterol (Advair Diskus 250/50) 1 puff INH RQ12 [facility] Last Admin: 01/05/18 08:02 Dose: 1 puff Sitagliptin Phosphate (Januvia) 50 mg PO DAILY [facility] Last Admin: 01/05/18 10:33 Dose: 50 mg Spironolactone (Aldactone) 25 mg PO DAILY [facility] Last Admin: 01/05/18 10:53 Dose: 25 mg Sucralfate (Carafate Oral Susp) 1 gm PO BID [facility] Last Admin: 01/05/18 18:12 Dose: 1 gm Tolterodine Tartrate (Detrol La) 4 mg PO DAILY [facility] Last Admin: 01/05/18 10:34 Dose: 4 mg Zolpidem Tartrate (Ambien) 5 mg PO HS PRN PRN Reason: Insomnia Last Admin: 01/04/18 21:42 Dose: 5 mg - Labs Labs: 01/05/18 07:35 01/05/18 07:35 PT 15.7 SECONDS (9.7-12.2) H 01/01/18 16:27 INR 1.4 09/10/18 16:27 APTT 39 SECONDS (21-34) H 01/01/18 16:27 - Constitutional Appears: Well, In Acute Distress - Head Exam Head Exam: ATRAUMATIC, NORMAL INSPECTION, NORMOCEPHALIC - Eye Exam Eye Exam: EOMI, Normal appearance, PERRL Pupil Exam: NORMAL ACCOMODATION, PERRL - ENT Exam ENT Exam: Mucous Membranes Moist, Normal Exam - Neck Exam Neck Exam: Full ROM, Normal Inspection. absent: Lymphadenopathy - Respiratory Exam Respiratory Exam: Clear to Ausculation Bilateral, Rales, NORMAL BREATHING PATTERN - Cardiovascular Exam Cardiovascular Exam: REGULAR RHYTHM, +S1, +S2, Murmur - GI/Abdominal Exam GI & Abdominal Exam: Soft, Normal Bowel Sounds. absent: Tenderness - Extremities Exam Extremities Exam: Full ROM, Normal Capillary Refill, Normal Inspection. absent : Joint Swelling, Pedal Edema - Back Exam Back Exam: NORMAL INSPECTION - Neurological Exam Neurological Exam: Alert, Awake, CN II-XII Intact, Normal Gait, Oriented x3 - Psychiatric Exam Psychiatric exam: Normal Affect, Normal Mood - Skin Skin Exam: Dry, Intact, Normal Color, Warm Assessment and Plan (1) Leg pain Status: Acute (2) Congestive heart failure Status: Acute (3) A-fib Status: Acute (4) Elevated brain natriuretic peptide (BNP) level Status: Acute (5) Fatigue Status: Acute (6) Pedal edema Status: Acute (7) Physical deconditioning Status: Acute (8) Pulmonary HTN Status: Acute (9) Shortness of breath Status: Acute (10) Diabetes Status: Chronic
--- NOTE | 2018-01-06 02:29 | CON ---
DATE: 01/05/2018 REQUEST OF: Dr. Tomasa Perry. HISTORY: This is an 82-year-old [place] female who is well known to me on outpatient podiatry care. PHYSICAL EXAMINATION: GENERAL: She is seen at bedside, alert, orientated x3. EXTREMITIES: Evaluation of her lower extremities reveal no evidence of ulceration or infection. Dorsalis pedis and tibialis posterior arteries palpable. Tenderness on palpation of the lower legs and the feet. No signs of DVT or ischemia. ASSESSMENT AND PLAN: We will check x-rays to determine if there is any lytic or arthritic changes about the lower extremities. We will start physical therapy for this patient and get her ambulatory. No surgical intervention required. We will start physical therapy as tolerated. Foreign Mcgovern DPM
[2018-01-06] MEDS: Levothyroxine 100 MCG TAB PO SCH (05:52)
[2018-01-06 07:28] LABS: BASO % 0.4 % (0.0-2.0); EOS # 0.1 K/uL (0.0-0.7); EOS % 1.8 % (0.0-4.0); HEMOGLOBIN 12.9 g/dL (11.0-16.0); LYMPH # 2.4 K/uL (1.0-4.3); MEAN CORPUSCULAR HGB CONC 32.5 g/dL (33.0-37.0); MEAN PLATELET VOLUME 8.7 fL (7.2-11.7); MONO # 0.6 K/uL (0.0-0.8); MONO % 11.2 % (0.0-10.0); NEUT # 2.4 K/uL (1.8-7.0); NEUT % 42.6 % (50.0-75.0); NRBC % 0.1 % (0.0-2.0); RBC 4.77 Mil/uL (3.80-5.20); RED CELL DISTRIBUTION WIDTH 15.5 % (11.5-14.5); WHITE BLOOD COUNT 5.5 K/uL (4.8-10.8)
[2018-01-06] MEDS: Fluticasone-Salmeterol 250-50mcg Diskus INH SCH ×2 (07:28→19:25)
[2018-01-06 07:46] LABS: ALB/GLOB RATIO 1.4 (1.0-2.1); ALBUMIN 3.4 g/dL (3.5-5.0); ALT/SGPT 30 U/L (9-52); AST/SGOT 23 U/L (14-36); BLOOD UREA NITROGEN 22 mg/dL (7-17); GFR NON-AFRICAN AMERICAN > 60
[2018-01-06 07:49] LABS: B-TYPE NATRIURETIC PEPTIDE 1770 pg/mL (0-900)
[2018-01-06] MEDS: (Novolog) Insulin Aspart, Recombinant 100 u/ml 10 ml vial SC SCH ×4 (08:36→21:03)
[2018-01-06] MEDS: LIPASE/PROTEASE/AMYLASE 4,200 U ECC PO SCH ×3 (08:37→18:00)
--- NOTE | 2018-01-06 09:34 | CP.PCM.PN ---
Subjective - Date & Time of Evaluation Date of Evaluation: 01/06/18 Time of Evaluation: 09:30 - Subjective Subjective: pt feels manuela was able to walk with pt Objective - Vital Signs/Intake and Output Vital Signs (last 24 hours): Temp Pulse Resp BP Pulse Ox 98.0 F 88 20 98/55 L 55 L 01/06/18 07:35 01/06/18 07:35 01/06/18 07:35 01/06/18 07:35 01/06/18 07:35 Intake and Output: 01/06/18 01/06/18 06:59 18:59 Intake Total 100 Output Total 1150 Balance -1050 - Medications Medications: Current Medications Acetaminophen (Tylenol 650mg/20.3ml Solution Ud) 650 mg PO Q6 PRN PRN Reason: Pain, moderate (4-7) Albuterol (Ventolin Hfa 90 Mcg/Actuation (8 G)) 1 puff INH RQ6 PRN PRN Reason: sob Apixaban (Eliquis) 2.5 mg PO BID [facility] Last Admin: 01/05/18 18:12 Dose: 2.5 mg Aspirin (Ecotrin) 81 mg PO DAILY [facility] Last Admin: 01/05/18 10:33 Dose: 81 mg Dextrose (Dextrose 50% Inj) 0 ml IV STAT PRN; Protocol PRN Reason: Hypoglycemia Protocol Dextrose (Glutose 15) 0 gm PO ONCE PRN; Protocol PRN Reason: Hypoglycemia Protocol Digoxin (Digoxin) 0.125 mg PO DAILY@1800 [facility] Last Admin: 01/05/18 18:12 Dose: 0.125 mg Docusate Sodium (Colace) 200 mg PO [facility] Last Admin: 01/05/18 21:29 Dose: 200 mg Donepezil HCl (Aricept) 10 mg PO [facility] Last Admin: 01/05/18 21:30 Dose: 10 mg Furosemide (Lasix) 40 mg IVP BID [facility] Last Admin: 01/05/18 18:22 Dose: 40 mg Gabapentin (Neurontin) 300 mg PO TID [facility] Last Admin: 01/05/18 18:13 Dose: 300 mg Glucagon (Glucagen Diagnostic Kit) 0 mg IM STAT PRN; Protocol PRN Reason: Hypoglycemia Protocol Home Med (Sildenafil [Revatio]) 20 mg PO TID [facility] Ibuprofen (Motrin Tab) 600 mg PO Q6 PRN PRN Reason: fever/pain Last Admin: 01/05/18 10:48 Dose: 600 mg Insulin Aspart (Novolog) 1 unit SC ACHS [facility] PRN Reason: Protocol Last Admin: 01/06/18 08:36 Dose: Not Given Levothyroxine Sodium (Synthroid) 100 mcg PO DAILY@0630 [facility] Last Admin: 01/06/18 05:52 Dose: 100 mcg Magnesium Oxide (Mag-Ox) 400 mg PO DAILY [facility] Last Admin: 01/05/18 10:32 Dose: 400 mg Metoprolol Tartrate (Lopressor) 25 mg PO Q12 [facility] Last Admin: 01/05/18 21:32 Dose: 25 mg Ondansetron HCl (Zofran Odt) 4 mg PO Q6 PRN PRN Reason: Nausea/Vomiting Last Admin: 01/04/18 10:49 Dose: 4 mg Pantoprazole Sodium (Protonix Ec Tab) 40 mg PO DAILY [facility] Last Admin: 01/05/18 10:33 Dose: 40 mg Rivastigmine (Exelon 9.5 Mg/24 Hr Patch) 1 patch TD DAILY [facility] Last Admin: 01/05/18 10:41 Dose: 1 patch Rosuvastatin Calcium (Crestor) 5 mg PO HS [facility] Last Admin: 01/05/18 21:29 Dose: 5 mg Fluticasone/Salmeterol (Advair Diskus 250/50) 1 puff INH RQ12 [facility] Last Admin: 01/06/18 07:28 Dose: 1 puff Sitagliptin Phosphate (Januvia) 50 mg PO DAILY [facility] Last Admin: 01/05/18 10:33 Dose: 50 mg Spironolactone (Aldactone) 25 mg PO DAILY [facility] Last Admin: 01/05/18 10:53 Dose: 25 mg Sucralfate (Carafate Oral Susp) 1 gm PO BID [facility] Last Admin: 01/05/18 18:12 Dose: 1 gm Tolterodine Tartrate (Detrol La) 4 mg PO DAILY [facility] Last Admin: 01/05/18 10:34 Dose: 4 mg Zolpidem Tartrate (Ambien) 5 mg PO HS PRN PRN Reason: Insomnia Last Admin: 01/05/18 21:39 Dose: 5 mg - Labs Labs: 01/06/18 07:09 01/06/18 07:09 PT 15.7 SECONDS (9.7-12.2) H 01/01/18 16:27 INR 1.4 01/01/18 16:27 APTT 39 SECONDS (21-34) H 01/01/18 16:27 - Constitutional Appears: Non-toxic - Eye Exam Eye Exam: Normal appearance Pupil Exam: NORMAL ACCOMODATION - ENT Exam ENT Exam: Normal Exam - Respiratory Exam Respiratory Exam: Clear to Ausculation Bilateral - Cardiovascular Exam Cardiovascular Exam: REGULAR RHYTHM - GI/Abdominal Exam GI & Abdominal Exam: Normal Bowel Sounds - Rectal Exam Rectal Exam: NORMAL INSPECTION - Exam Exam: NORMAL INSPECTION External exam: NORMAL EXTERNAL EXAM - Extremities Exam Extremities Exam: Normal Capillary Refill - Back Exam Back Exam: NORMAL INSPECTION - Skin Skin Exam: Normal Color Assessment and Plan - Assessment and Plan (Free Text) Assessment: pt s/p chf pain feet dm hypotension pulmonary htn stable will arrange for discharge home with pt at home amd home care Plan: discharge home with med and home care and pt at home
[2018-01-06] MEDS: Pantoprazole 40 mg EC Tab PO SCH (09:43)
[2018-01-06] MEDS: Magnesium Oxide 400 mg Tab UD PO SCH (09:43)
[2018-01-06] MEDS: Sucralfate 1 gm/10 ml Oral Susp UD PO SCH ×3 (09:47→18:30)
[2018-01-06] MEDS: Tolterodine 4 mg ER Cap PO SCH (09:53)
[2018-01-06] MEDS ORDERED: Potassium Chloride 20 mEq ER Tab PO ONE ×2 (10:00→12:00)
[2018-01-06] MEDS: Digoxin 125 mcg (0.125 mg) Tab PO SCH (18:29)
[2018-01-07] MEDS: Levothyroxine 100 MCG TAB PO SCH (05:48)
[2018-01-07] MEDS: Fluticasone-Salmeterol 250-50mcg Diskus INH SCH ×2 (07:54→20:15)
[2018-01-07 07:56] LABS: BASO % 0.3 % (0.0-2.0); EOS # 0.1 K/uL (0.0-0.7); EOS % 1.2 % (0.0-4.0); HEMOGLOBIN 13.3 g/dL (11.0-16.0); LYMPH # 2.3 K/uL (1.0-4.3); MEAN CELL VOLUME 83.4 fL (81.0-99.0); MEAN CORPUSCULAR HEMOGLOBIN 26.8 pg (27.0-31.0); MEAN CORPUSCULAR HGB CONC 32.2 g/dL (33.0-37.0); MEAN PLATELET VOLUME 8.6 fL (7.2-11.7); MONO # 0.7 K/uL (0.0-0.8); NEUT # 3.2 K/uL (1.8-7.0); NEUT % 50.5 % (50.0-75.0); RBC 4.95 Mil/uL (3.80-5.20); RED CELL DISTRIBUTION WIDTH 15.8 % (11.5-14.5); WHITE BLOOD COUNT 6.3 K/uL (4.8-10.8)
[2018-01-07 08:17] LABS: B-TYPE NATRIURETIC PEPTIDE 1780 pg/mL (0-900)
[2018-01-07] MEDS: (Novolog) Insulin Aspart, Recombinant 100 u/ml 10 ml vial SC SCH ×4 (08:17→22:01)
[2018-01-07] MEDS: LIPASE/PROTEASE/AMYLASE 4,200 U ECC PO SCH ×2 (08:19→17:42)
[2018-01-07] MEDS: Sucralfate 1 gm/10 ml Oral Susp UD PO SCH ×3 (08:23→17:41)
[2018-01-07 08:25] LABS: ALB/GLOB RATIO 1.3 (1.0-2.1); ALBUMIN 3.7 g/dL (3.5-5.0); ALT/SGPT 29 U/L (9-52); AST/SGOT 28 U/L (14-36); BLOOD UREA NITROGEN 25 mg/dL (7-17); CALCIUM 9.3 mg/dl (8.6-10.4); GFR NON-AFRICAN AMERICAN > 60
[2018-01-07] MEDS: Magnesium Oxide 400 mg Tab UD PO SCH (10:17)
[2018-01-07] MEDS: Tolterodine 4 mg ER Cap PO SCH (10:18)
[2018-01-07] MEDS: Pantoprazole 40 mg EC Tab PO SCH (10:18)
--- NOTE | 2018-01-07 12:19 | CP.PCM.PN ---
Subjective - Date & Time of Evaluation Date of Evaluation: 12/31/17 Time of Evaluation: 12:16 - Subjective Subjective: doesnot feel well has nausea no apetite stomack hurts Objective - Vital Signs/Intake and Output Vital Signs (last 24 hours): Temp Pulse Resp BP Pulse Ox 98 F 84 20 121/70 96 01/07/18 10:11 01/07/18 10:11 01/07/18 10:11 01/07/18 11:28 01/07/18 10:11 - Medications Medications: Current Medications Acetaminophen (Tylenol 650mg/20.3ml Solution Ud) 650 mg PO Q6 PRN PRN Reason: Pain, moderate (4-7) Albuterol (Ventolin Hfa 90 Mcg/Actuation (8 G)) 1 puff INH RQ6 PRN PRN Reason: sob Last Admin: 01/06/18 19:25 Dose: 1 puff Apixaban (Eliquis) 2.5 mg PO BID [facility] Last Admin: 01/07/18 10:18 Dose: Not Given Aspirin (Ecotrin) 81 mg PO DAILY [facility] Last Admin: 01/07/18 10:17 Dose: Not Given Dextrose (Dextrose 50% Inj) 0 ml IV STAT PRN; Protocol PRN Reason: Hypoglycemia Protocol Dextrose (Glutose 15) 0 gm PO ONCE PRN; Protocol PRN Reason: Hypoglycemia Protocol Digoxin (Digoxin) 0.125 mg PO DAILY@1800 [facility] Last Admin: 01/06/18 18:29 Dose: Not Given Docusate Sodium (Colace) [address] [facility] Last Admin: 01/06/18 21:08 Dose: 200 mg Donepezil HCl (Aricept) [address] [facility] Last Admin: 01/06/18 21:08 Dose: 10 mg Furosemide (Lasix) 40 mg IVP BID [facility] Last Admin: 01/07/18 10:16 Dose: 40 mg Gabapentin (Neurontin) 300 mg PO TID [facility] Last Admin: 01/07/18 10:17 Dose: Not Given Glucagon (Glucagen Diagnostic Kit) 0 mg IM STAT PRN; Protocol PRN Reason: Hypoglycemia Protocol Home Med (Sildenafil [Revatio]) 20 mg PO TID [facility] Ibuprofen (Motrin Tab) 600 mg PO Q6 PRN PRN Reason: fever/pain Last Admin: 01/05/18 10:48 Dose: 600 mg Insulin Aspart (Novolog) 1 unit SC [facility] PRN Reason: Protocol Last Admin: 01/07/18 08:17 Dose: Not Given Levothyroxine Sodium (Synthroid) 100 mcg PO DAILY@0630 [facility] Last Admin: 01/07/18 05:48 Dose: 100 mcg Magnesium Oxide (Mag-Ox) 400 mg PO DAILY [facility] Last Admin: 01/07/18 10:17 Dose: Not Given Metoprolol Tartrate (Lopressor) 25 mg PO Q12 [facility] Last Admin: 01/07/18 10:19 Dose: Not Given Ondansetron HCl (Zofran Odt) 4 mg PO Q6 PRN PRN Reason: Nausea/Vomiting Last Admin: 01/04/18 10:49 Dose: 4 mg Pantoprazole Sodium (Protonix Ec Tab) 40 mg PO DAILY [facility] Last Admin: 01/07/18 10:18 Dose: Not Given Rivastigmine (Exelon 9.5 Mg/24 Hr Patch) 1 patch TD DAILY [facility] Last Admin: 01/07/18 10:18 Dose: 1 patch Rosuvastatin Calcium (Crestor) 5 mg PO HS [facility] Last Admin: 01/06/18 21:08 Dose: 5 mg Fluticasone/Salmeterol (Advair Diskus 250/50) 1 puff INH RQ12 [facility] Last Admin: 01/07/18 07:54 Dose: 1 puff Sitagliptin Phosphate (Januvia) 50 mg PO DAILY [facility] Last Admin: 01/07/18 10:17 Dose: Not Given Spironolactone (Aldactone) 25 mg PO DAILY [facility] Last Admin: 01/07/18 10:18 Dose: Not Given Sucralfate (Carafate Oral Susp) 1 gm PO BID [facility] Last Admin: 01/07/18 10:19 Dose: Not Given Tolterodine Tartrate (Detrol La) 4 mg PO DAILY [facility] Last Admin: 01/07/18 10:18 Dose: Not Given Zolpidem Tartrate (Ambien) 5 mg PO HS PRN PRN Reason: Insomnia Last Admin: 01/06/18 21:08 Dose: 5 mg - Labs Labs: 01/07/18 07:45 01/07/18 07:45 PT 15.7 SECONDS (9.7-12.2) H 01/01/18 16:27 INR 1.4 01/01/18 16:27 APTT 39 SECONDS (21-34) H 01/01/18 16:27 - Constitutional Appears: Non-toxic - Head Exam Head Exam: NORMOCEPHALIC Additional comments: head and neck pain - Eye Exam Eye Exam: Normal appearance - ENT Exam ENT Exam: Normal Exam - Neck Exam Neck Exam: Normal Inspection - Respiratory Exam Respiratory Exam: Rales - Cardiovascular Exam Cardiovascular Exam: REGULAR RHYTHM - GI/Abdominal Exam GI & Abdominal Exam: Tenderness, Normal Bowel Sounds - Extremities Exam Extremities Exam: Pedal Edema, Tenderness - Back Exam Back Exam: NORMAL INSPECTION - Neurological Exam Neurological Exam: Alert, Oriented x3 - Psychiatric Exam Psychiatric exam: Depressed - Skin Skin Exam: Normal Color Assessment and Plan - Assessment and Plan (Free Text) Assessment: ac nausea chf worse [place] and neck pain inability to ambulate feet pain Plan: as per orders
--- NOTE | 2018-01-07 12:26 | VASCLAB ---
Date of service: 01/05/2018 STUDY DESCRIPTION: HISTORY: pvd PRIORS: None. TECHNIQUE: Pulse volume recording waveforms and segmental pressures of bilateral lower extremities at multiple levels were obtained. Ankle Brachial Indices (ABIs) were calculated. Report prepared by MONA Zhou, RVT RIGHT LOWER EXTREMITY: * Brachial artery: Pressure - 114 mmHg. * High thigh: Pressure - mmHg: Ratio - : PVR waveform - Pulsatile * Low thigh: Pressure - mmHg: Ratio - PVR waveform: Pulsatile * Calf: Pressure - 108 mmHg: Ratio - 0.95 PVR waveform: Pulsatile * Posterior tibial Artery: Pressure - 98 mmHg: Ratio - 0.86 PVR waveform: Pulsatile * Dorsalis pedis Artery: Pressure - 103 mmHg: Ratio - 0.90 PVR waveform: Pulsatile * Great toe: Pressure - 87 mmHg: Ratio - 0.76 PVR waveform: Pulsatile Ankle brachial index (DIMITRI): 0.90 LEFT LOWER EXTREMITY: * Brachial artery: Pressure - 110 mmHg. * High thigh: Pressure - mmHg: Ratio - : PVR waveform - Pulsatile * Low thigh: Pressure - mmHg: Ratio - PVR waveform: Pulsatile * Calf: Pressure - 115 mmHg: Ratio - 1.01 PVR waveform: Pulsatile * Posterior tibial Artery: Pressure - 110 mmHg: Ratio - 0.96 PVR waveform: Pulsatile * Dorsalis pedis Artery: Pressure - 129 mmHg: Ratio - 1.13 PVR waveform: Pulsatile * Great toe: Pressure - 82 mmHg: Ratio - 0.72 PVR waveform: Pulsatile Ankle brachial index (DIMITRI): 1.13 OTHER FINDINGS: Right: Left: IMPRESSION: Right: This exam reveals mildly decreased perfusion of the right lower extremity, noted at the iliac artery level. Left: There was no evidence of hemodynamically significant arterial insufficiency in the left lower extremity.
[2018-01-07] MEDS: Acetaminophen 650mg/20.3ml solution UD PO PRN (15:17)
[2018-01-07] MEDS: Digoxin 125 mcg (0.125 mg) Tab PO SCH (17:43)
[2018-01-08] MEDS: Levothyroxine 100 MCG TAB PO SCH (05:32)
[2018-01-08] MEDS: (Novolog) Insulin Aspart, Recombinant 100 u/ml 10 ml vial SC SCH ×4 (07:30→21:54)
[2018-01-08] MEDS: Fluticasone-Salmeterol 250-50mcg Diskus INH SCH (07:40)
[2018-01-08] MEDS: LIPASE/PROTEASE/AMYLASE 4,200 U ECC PO SCH ×2 (08:40→17:17)
[2018-01-08] MEDS: Magnesium Oxide 400 mg Tab UD PO SCH (09:36)
[2018-01-08] MEDS: Pantoprazole 40 mg EC Tab PO SCH (09:38)
[2018-01-08] MEDS: Sucralfate 1 gm/10 ml Oral Susp UD PO SCH ×3 (11:00→17:15)
[2018-01-08] MEDS: Tolterodine 4 mg ER Cap PO SCH (11:01)
--- NOTE | 2018-01-08 11:50 | IP.NPCORE ---
Heart Failure Core Measure - Heart Failure Ejection Fraction: 40 % or Greater SARWAT Inhibitor Prescribed: No Contraindication/Reason for not providing: ON ARB Beta-Amor Prescribed: None Contraindication/Reason for not providing: LOPRESSOR Q12 Angiotensin II Receptor Amor Prescribed: Yes AnticoagulationTherapy for Atrial Fibrillation/Atrialflutter: Yes Aldosterone Antagonist Prescribed: No Contraindication/Reason for not providing: EF > 40 Hydralazine Nitrate Prescribed: No Contraindication/Reason for not providing: EF > 40 Implantable Cardioverter Defibrillator Therapy: Yes Cardiac Resynchronization Therapy Prescribed: No Contraindication/Reason for not providing: HAS A PPM - Follow up Will be discharged to: Home Follow Up Date (must be within 7 days from discharge): 01/15/18 Follow Up Time: 09:00
[2018-01-08] MEDS: Acetaminophen 650mg/20.3ml solution UD PO PRN (11:55)
--- NOTE | 2018-01-08 15:46 | CP.PCM.PN ---
Subjective - Date & Time of Evaluation Date of Evaluation: 01/08/18 Time of Evaluation: 15:44 - Subjective Subjective: PT SEEN FOR POSS D/C. PT STATES "I DON'T FEEL GOOD; I AM FEELING LAZY; I AM TIRED." APPEARS IN NAD UPON EXAM. PER DR. SANCHEZ, PT HAD ABD PAIN AND N/V YESTERDAY. PT C/O VAGUE ABD PAIN THAT IS BETTER THAN YESTERDAY. PT ALSO HAS NO IV ACCESS AND DID NOR RECEIVE HER IV LASIX. DISCUSSED WITH PT A D/C HOME FOR TOMORROW MORNING AFTER MORNING LABS. HOME VNA AND HOME PHY THER ALREADY ARRANGED LAST WEEK IN PREPARATION FOR DC. NO FURTHER ORDERS. Objective - Vital Signs/Intake and Output Vital Signs (last 24 hours): Temp Pulse Resp BP Pulse Ox 98.0 F 73 18 110/70 100 01/08/18 07:00 01/08/18 07:00 01/08/18 07:00 01/08/18 09:36 01/08/18 07:00 - Medications Medications: Current Medications Acetaminophen (Tylenol 650mg/20.3ml Solution Ud) 650 mg PO Q6 PRN PRN Reason: Pain, moderate (4-7) Last Admin: 01/08/18 11:55 Dose: 650 mg Albuterol (Ventolin Hfa 90 Mcg/Actuation (8 G)) 1 puff INH RQ6 PRN PRN Reason: sob Last Admin: 01/06/18 19:25 Dose: 1 puff Apixaban (Eliquis) 2.5 mg PO BID [facility] Last Admin: 01/08/18 11:01 Dose: 2.5 mg Aspirin (Ecotrin) 81 mg PO DAILY [facility] Last Admin: 01/08/18 09:36 Dose: 81 mg Dextrose (Dextrose 50% Inj) 0 ml IV STAT PRN; Protocol PRN Reason: Hypoglycemia Protocol Dextrose (Glutose 15) 0 gm PO ONCE PRN; Protocol PRN Reason: Hypoglycemia Protocol Digoxin (Digoxin) 0.125 mg PO DAILY@1800 [facility] Last Admin: 01/07/18 17:43 Dose: Not Given Docusate Sodium (Colace) 200 mg PO [facility] Last Admin: 01/07/18 21:32 Dose: 200 mg Donepezil HCl (Aricept) 10 mg PO [facility] Last Admin: 09/16/18 21:32 Dose: 10 mg Furosemide (Lasix) 40 mg IVP BID [facility] Last Admin: 01/08/18 09:39 Dose: Not Given Gabapentin (Neurontin) 300 mg PO TID [facility] Last Admin: 01/08/18 14:01 Dose: 300 mg Glucagon (Glucagen Diagnostic Kit) 0 mg IM STAT PRN; Protocol PRN Reason: Hypoglycemia Protocol Home Med (Sildenafil [Revatio]) 20 mg PO TID [facility] Ibuprofen (Motrin Tab) 600 mg PO Q6 PRN PRN Reason: fever/pain Last Admin: 01/05/18 10:48 Dose: 600 mg Insulin Aspart (Novolog) 1 unit SC ACHS [facility] PRN Reason: Protocol Last Admin: 01/08/18 12:00 Dose: Not Given Levothyroxine Sodium (Synthroid) 100 mcg PO DAILY@0630 [facility] Last Admin: 01/08/18 05:32 Dose: 100 mcg Magnesium Oxide (Mag-Ox) 400 mg PO DAILY [facility] Last Admin: 01/08/18 09:36 Dose: 400 mg Metoprolol Tartrate (Lopressor) 25 mg PO Q12 [facility] Last Admin: 01/08/18 09:36 Dose: 25 mg Ondansetron HCl (Zofran Odt) 4 mg PO Q6 PRN PRN Reason: Nausea/Vomiting Last Admin: 01/04/18 10:49 Dose: 4 mg Ondansetron HCl (Zofran Inj) 4 mg IVP QID PRN Pantoprazole Sodium (Protonix Ec Tab) 40 mg PO DAILY [facility] Last Admin: 01/08/18 09:38 Dose: 40 mg Rivastigmine (Exelon 9.5 Mg/24 Hr Patch) 1 patch TD DAILY [facility] Last Admin: 01/08/18 11:01 Dose: 1 patch Rosuvastatin Calcium (Crestor) 5 mg PO HS [facility] Last Admin: 01/07/18 21:32 Dose: 5 mg Fluticasone/Salmeterol (Advair Diskus 250/50) 1 puff INH RQ12 [facility] Last Admin: 01/08/18 07:40 Dose: 1 puff Sitagliptin Phosphate (Januvia) 50 mg PO DAILY [facility] Last Admin: 01/08/18 09:35 Dose: Not Given Spironolactone (Aldactone) 25 mg PO DAILY [facility] Last Admin: 01/08/18 10:00 Dose: 25 mg Sucralfate (Carafate Oral Susp) 1 gm PO BID [facility] Last Admin: 01/08/18 11:00 Dose: Not Given Tolterodine Tartrate (Detrol La) 4 mg PO DAILY [facility] Last Admin: 01/08/18 11:01 Dose: 4 mg Zolpidem Tartrate (Ambien) 5 mg PO HS PRN PRN Reason: Insomnia Last Admin: 01/07/18 21:32 Dose: 5 mg - Labs Labs: 01/07/18 07:45 01/07/18 07:45 PT 15.7 SECONDS (9.7-12.2) H 01/01/18 16:27 INR 1.4 01/01/18 16:27 APTT 39 SECONDS (21-34) H 01/01/18 16:27
[2018-01-08 15:55] VITALS: RESP 20
--- NOTE | 2018-01-08 17:12 | CP.PCM.PN ---
Subjective - Date & Time of Evaluation Date of Evaluation: 01/08/18 Time of Evaluation: 17:10 - Subjective Subjective: feels beter no distress will go home to cont med and pt Objective - Vital Signs/Intake and Output Vital Signs (last 24 hours): Temp Pulse Resp BP Pulse Ox 97.8 F 52 L 20 124/74 95 01/08/18 15:00 01/08/18 15:00 01/08/18 15:00 01/08/18 15:00 01/08/18 15:00 - Medications Medications: Current Medications Acetaminophen (Tylenol 650mg/20.3ml Solution Ud) 650 mg PO Q6 PRN PRN Reason: Pain, moderate (4-7) Last Admin: 01/08/18 11:55 Dose: 650 mg Albuterol (Ventolin Hfa 90 Mcg/Actuation (8 G)) 1 puff INH RQ6 PRN PRN Reason: sob Last Admin: 01/06/18 19:25 Dose: 1 puff Apixaban (Eliquis) 2.5 mg PO BID [facility] Last Admin: 01/08/18 11:01 Dose: 2.5 mg Aspirin (Ecotrin) 81 mg PO DAILY [facility] Last Admin: 01/08/18 09:36 Dose: 81 mg Dextrose (Dextrose 50% Inj) 0 ml IV STAT PRN; Protocol PRN Reason: Hypoglycemia Protocol Dextrose (Glutose 15) 0 gm PO ONCE PRN; Protocol PRN Reason: Hypoglycemia Protocol Digoxin (Digoxin) 0.125 mg PO DAILY@1800 [facility] Last Admin: 01/07/18 17:43 Dose: Not Given Docusate Sodium (Colace) 200 mg PO [facility] Last Admin: 01/07/18 21:32 Dose: 200 mg Donepezil HCl (Aricept) 10 mg PO [facility] Last Admin: 01/07/18 21:32 Dose: 10 mg Furosemide (Lasix) 40 mg PO BID [facility] Gabapentin (Neurontin) 300 mg PO TID [facility] Last Admin: 01/08/18 14:01 Dose: 300 mg Glucagon (Glucagen Diagnostic Kit) 0 mg IM STAT PRN; Protocol PRN Reason: Hypoglycemia Protocol Home Med (Sildenafil [Revatio]) 20 mg PO TID [facility] Ibuprofen (Motrin Tab) 600 mg PO Q6 PRN PRN Reason: fever/pain Last Admin: 01/05/18 10:48 Dose: 600 mg Insulin Aspart (Novolog) 1 unit SC ACHS [facility] PRN Reason: Protocol Last Admin: 01/08/18 12:00 Dose: Not Given Levothyroxine Sodium (Synthroid) 100 mcg PO DAILY@0630 [facility] Last Admin: 01/08/18 05:32 Dose: 100 mcg Magnesium Oxide (Mag-Ox) 400 mg PO DAILY [facility] Last Admin: 01/08/18 09:36 Dose: 400 mg Metoprolol Tartrate (Lopressor) 25 mg PO Q12 [facility] Last Admin: 01/08/18 09:36 Dose: 25 mg Ondansetron HCl (Zofran Odt) 4 mg PO Q6 PRN PRN Reason: Nausea/Vomiting Last Admin: 01/04/18 10:49 Dose: 4 mg Ondansetron HCl (Zofran Inj) 4 mg IVP QID PRN Pantoprazole Sodium (Protonix Ec Tab) 40 mg PO DAILY [facility] Last Admin: 01/08/18 09:38 Dose: 40 mg Rivastigmine (Exelon 9.5 Mg/24 Hr Patch) 1 patch TD DAILY [facility] Last Admin: 01/08/18 11:01 Dose: 1 patch Rosuvastatin Calcium (Crestor) 5 mg PO HS [facility] Last Admin: 01/07/18 21:32 Dose: 5 mg Fluticasone/Salmeterol (Advair Diskus 250/50) 1 puff INH RQ12 [facility] Last Admin: 01/08/18 07:40 Dose: 1 puff Sitagliptin Phosphate (Januvia) 50 mg PO DAILY [facility] Last Admin: 01/08/18 09:35 Dose: Not Given Spironolactone (Aldactone) 25 mg PO DAILY [facility] Last Admin: 01/08/18 10:00 Dose: 25 mg Sucralfate (Carafate Oral Susp) 1 gm PO BID [facility] Last Admin: 01/08/18 11:00 Dose: Not Given Tolterodine Tartrate (Detrol La) 4 mg PO DAILY [facility] Last Admin: 01/08/18 11:01 Dose: 4 mg Zolpidem Tartrate (Ambien) 5 mg PO HS PRN PRN Reason: Insomnia Last Admin: 01/07/18 21:32 Dose: 5 mg - Labs Labs: 01/07/18 07:45 01/07/18 07:45 PT 15.7 SECONDS (9.7-12.2) H 01/01/18 16:27 INR 1.4 01/01/18 16:27 APTT 39 SECONDS (21-34) H 01/01/18 16:27 - Constitutional Appears: Non-toxic - Head Exam Head Exam: NORMAL INSPECTION - Eye Exam Eye Exam: Normal appearance Pupil Exam: NORMAL ACCOMODATION - ENT Exam ENT Exam: Mucous Membranes Moist - Neck Exam Neck Exam: Normal Inspection - Respiratory Exam Respiratory Exam: NORMAL BREATHING PATTERN - Cardiovascular Exam Cardiovascular Exam: REGULAR RHYTHM - GI/Abdominal Exam GI & Abdominal Exam: Normal Bowel Sounds - Exam Exam: NORMAL INSPECTION External exam: NORMAL EXTERNAL EXAM - Extremities Exam Extremities Exam: Normal Capillary Refill - Back Exam Back Exam: NORMAL INSPECTION - Neurological Exam Neurological Exam: Alert, Normal Gait, Oriented x3 - Psychiatric Exam Psychiatric exam: Normal Mood - Skin Skin Exam: Abrasion Assessment and Plan - Assessment and Plan (Free Text) Assessment: chf dm arthitis copd will d/c with pt and cont med and f/u in my office
[2018-01-08] MEDS: Digoxin 125 mcg (0.125 mg) Tab PO SCH (17:18)
[2018-01-08 17:19] VITALS: PULSE 57
--- NOTE | 2018-01-08 18:41 | CP.PCM.PN ---
Subjective - Date & Time of Evaluation Date of Evaluation: 01/08/18 Time of Evaluation: 09:00 - Subjective Subjective: CARDIOLOGY PROGRESS NOTE FOR DR. PENDLETON Pt seen and examined at bedside this am. No acute complaints or nursing events overnight. Pt is tolerating diet well. She reports she has not been ambulating well. Denies fevers, chills, nausea, vomiting, chest pain, palpitations, shortness of breath, diophoresis, constipation, diarrhea, dysuria. Objective - Vital Signs/Intake and Output Vital Signs (last 24 hours): Temp Pulse Resp BP Pulse Ox 97.8 F 52 L 20 122/74 95 01/08/18 15:00 01/08/18 15:00 01/08/18 15:00 01/08/18 17:16 01/08/18 15:00 - Medications Medications: Current Medications Acetaminophen (Tylenol 650mg/20.3ml Solution Ud) 650 mg PO Q6 PRN PRN Reason: Pain, moderate (4-7) Last Admin: 01/08/18 11:55 Dose: 650 mg Albuterol (Ventolin Hfa 90 Mcg/Actuation (8 G)) 1 puff INH RQ6 PRN PRN Reason: sob Last Admin: 01/06/18 19:25 Dose: 1 puff Apixaban (Eliquis) 2.5 mg PO BID [facility] Last Admin: 01/08/18 17:19 Dose: 2.5 mg Aspirin (Ecotrin) 81 mg PO DAILY [facility] Last Admin: 01/08/18 09:36 Dose: 81 mg Dextrose (Dextrose 50% Inj) 0 ml IV STAT PRN; Protocol PRN Reason: Hypoglycemia Protocol Dextrose (Glutose 15) 0 gm PO ONCE PRN; Protocol PRN Reason: Hypoglycemia Protocol Digoxin (Digoxin) 0.125 mg PO DAILY@1800 [facility] Last Admin: 01/08/18 17:18 Dose: Not Given Docusate Sodium (Colace) 200 mg PO [facility] Last Admin: 01/07/18 21:32 Dose: 200 mg Donepezil HCl (Aricept) 10 mg PO HS [facility] Last Admin: 01/07/18 21:32 Dose: 10 mg Furosemide (Lasix) 40 mg PO BID [facility] Last Admin: 01/08/18 17:16 Dose: 40 mg Gabapentin (Neurontin) 300 mg PO TID [facility] Last Admin: 01/08/18 17:15 Dose: 300 mg Glucagon (Glucagen Diagnostic Kit) 0 mg IM STAT PRN; Protocol PRN Reason: Hypoglycemia Protocol Home Med (Sildenafil [Revatio]) 20 mg PO TID [facility] Ibuprofen (Motrin Tab) 600 mg PO Q6 PRN PRN Reason: fever/pain Last Admin: 01/05/18 10:48 Dose: 600 mg Insulin Aspart (Novolog) 1 unit SC ACHS [facility] PRN Reason: Protocol Last Admin: 01/08/18 17:23 Dose: Not Given Levothyroxine Sodium (Synthroid) 100 mcg PO DAILY@0630 [facility] Last Admin: 01/08/18 05:32 Dose: 100 mcg Magnesium Oxide (Mag-Ox) 400 mg PO DAILY [facility] Last Admin: 01/08/18 09:36 Dose: 400 mg Metoprolol Tartrate (Lopressor) 25 mg PO Q12 [facility] Last Admin: 01/08/18 09:36 Dose: 25 mg Ondansetron HCl (Zofran Odt) 4 mg PO Q6 PRN PRN Reason: Nausea/Vomiting Last Admin: 01/04/18 10:49 Dose: 4 mg Ondansetron HCl (Zofran Inj) 4 mg IVP QID PRN Pantoprazole Sodium (Protonix Ec Tab) 40 mg PO DAILY [facility] Last Admin: 01/08/18 09:38 Dose: 40 mg Rivastigmine (Exelon 9.5 Mg/24 Hr Patch) 1 patch TD DAILY [facility] Last Admin: 01/08/18 11:01 Dose: 1 patch Rosuvastatin Calcium (Crestor) 5 mg PO HS [facility] Last Admin: 01/07/18 21:32 Dose: 5 mg Fluticasone/Salmeterol (Advair Diskus 250/50) 1 puff INH RQ12 [facility] Last Admin: 01/08/18 07:40 Dose: 1 puff Sitagliptin Phosphate (Januvia) 50 mg PO DAILY [facility] Last Admin: 01/08/18 09:35 Dose: Not Given Spironolactone (Aldactone) 25 mg PO DAILY [facility] Last Admin: 01/08/18 10:00 Dose: 25 mg Sucralfate (Carafate Oral Susp) 1 gm PO BID [facility] Last Admin: 01/08/18 17:15 Dose: 1 gm Tolterodine Tartrate (Detrol La) 4 mg PO DAILY [facility] Last Admin: 01/08/18 11:01 Dose: 4 mg Zolpidem Tartrate (Ambien) 5 mg PO HS PRN PRN Reason: Insomnia Last Admin: 01/07/18 21:32 Dose: 5 mg - Labs Labs: 01/07/18 07:45 01/07/18 07:45 PT 15.7 SECONDS (9.7-12.2) H 01/01/18 16:27 INR 1.4 01/01/18 16:27 APTT 39 SECONDS (21-34) H 01/01/18 16:27 - Constitutional Appears: Well, Non-toxic, No Acute Distress - Head Exam Head Exam: NORMAL INSPECTION, NORMOCEPHALIC - Eye Exam Eye Exam: EOMI, Normal appearance - ENT Exam ENT Exam: Mucous Membranes Moist, Normal Exam - Neck Exam Neck Exam: Normal Inspection - Respiratory Exam Respiratory Exam: Rales (b/l), NORMAL BREATHING PATTERN - Cardiovascular Exam Cardiovascular Exam: REGULAR RHYTHM, +S1, +S2 - GI/Abdominal Exam GI & Abdominal Exam: Soft. absent: Distended - Extremities Exam Extremities Exam: Normal Inspection. absent: Calf Tenderness - Back Exam Back Exam: NORMAL INSPECTION - Neurological Exam Neurological Exam: Alert, Awake, Oriented x3 - Psychiatric Exam Psychiatric exam: Normal Affect, Normal Mood - Skin Skin Exam: Dry, Intact, Warm Assessment and Plan - Assessment and Plan (Free Text) Assessment: 82 y/o F w/ pmhx of diastolic CHF, pulmonary HTN, nonischemic cardiomyopathy w/ pacemaker, Afib on eloquis, DM2, HTN, COPD, Hypothyroidism, HLD, PUD admitted for acute on chronic CHF exacerbation Plan: (1) Leg pain Status: Acute (2) Congestive heart failure Status: Acute (3) A-fib Status: Acute (4) Elevated brain natriuretic peptide (BNP) level Status: Acute (5) Fatigue Status: Acute (6) Pedal edema Status: Acute (7) Physical deconditioning Status: Acute (8) Pulmonary HTN Status: Acute (9) Shortness of breath Status: Acute (10) Diabetes Status: Chronic Case seen, examined, and discussed with attending physiciam, Dr. Pendleton
[2018-01-09] MEDS: Levothyroxine 100 MCG TAB PO SCH (06:05)
[2018-01-09 06:53] LABS: HEMOGLOBIN 13.3 g/dL (11.0-16.0); MEAN CELL VOLUME 82.8 fL (81.0-99.0); MEAN CORPUSCULAR HEMOGLOBIN 26.8 pg (27.0-31.0); MEAN CORPUSCULAR HGB CONC 32.3 g/dL (33.0-37.0); MEAN PLATELET VOLUME 9.2 fL (7.2-11.7); RBC 4.96 Mil/uL (3.80-5.20); RED CELL DISTRIBUTION WIDTH 15.4 % (11.5-14.5)
[2018-01-09] MEDS: (Novolog) Insulin Aspart, Recombinant 100 u/ml 10 ml vial SC SCH ×2 (07:30→11:30)
[2018-01-09 07:35] LABS: BLOOD UREA NITROGEN 23 mg/dL (7-17); CALCIUM 9.2 mg/dl (8.6-10.4); GFR NON-AFRICAN AMERICAN > 60
[2018-01-09 07:52] VITALS: TEMP 98.2; O2SAT 97
[2018-01-09] MEDS: LIPASE/PROTEASE/AMYLASE 4,200 U ECC PO SCH (08:00)
[2018-01-09] MEDS: Fluticasone-Salmeterol 250-50mcg Diskus INH SCH (08:04)
[2018-01-09] MEDS: Pantoprazole 40 mg EC Tab PO SCH (09:55)
[2018-01-09] MEDS: Magnesium Oxide 400 mg Tab UD PO SCH (09:59)
[2018-01-09] MEDS: Sucralfate 1 gm/10 ml Oral Susp UD PO SCH (10:00)
[2018-01-09 10:05] VITALS: BP 113/72
[2018-01-09] MEDS: Tolterodine 4 mg ER Cap PO SCH (10:11)
--- NOTE | 2018-01-09 11:01 | CP.PCM.PN ---
Subjective - Date & Time of Evaluation Date of Evaluation: 01/09/18 Time of Evaluation: 10:59 - Subjective Subjective: PT CLEARED LAST NIGHT FOR D/C HOME PER DR. SANCHEZ. PT HAS NO COMPLAINTS THIS MORNING AND STATES THAT SHE IS FEELING MUCH BETTER. PT TO F/U WITH DR. SANCHEZ IN THE OFFICE WITHIN 5-7 DAYS. STATES THAT SHE HAS ALL MEDS AT HOME, HOWEVER, I REFILLED HER LASIX AND SPIRONOLACTONE, WELL RX KCL. PT WILL HAVE HER FRIEND PICK HER UP THIS AFTERNOON. SHE VERBALIZES UNDERSTANDING OF D/C PLAN AND IS IN AGREEMENT. NO FURTHER ORDERS. SEE BELOW FOR D/C INSTRUCTIONS GIVEN TO THE PT. -FOLLOW UP WITH DR. SANCHEZ IN THE OFFICE IN 5-7 DAYS---CALL THE OFFICE FOR AN APPOINTMENT TIME. -FOLLOW UP WITH DR. LAST IN THE OFFICE SCHEDULED OR WITHIN 1-2 MONTHS- --CALL THE OFFICE FOR AN APPOINTMENT TIME. -FOLLOW UP WITH DR. CARMONA OR YOUR CARDIOLOGY IN THE OFFICE IN 10-14 DAYS--CALL THE OFFICE FOR AN APPOINTMENT TIME. -CONTINUE HOME MEDICATIONS USUAL. -REFILLS HAVE BEEN SENT TO YOUR PHARMACY, INCLUDING POTASSIUM SUPPLEMENTS. -FOR FURTHER CONCERNS OR QUESTIONS, CONTACT DR. SANCHEZ'S OFFICE. Objective - Vital Signs/Intake and Output Vital Signs (last 24 hours): Temp Pulse Resp BP Pulse Ox 98.2 F 64 20 113/72 97 01/09/18 07:00 01/09/18 07:00 01/09/18 07:00 01/09/18 10:00 01/09/18 07:00 Intake and Output: 01/09/18 01/09/18 06:59 18:59 Intake Total 120 Balance 120 - Medications Medications: Current Medications Acetaminophen (Tylenol 650mg/20.3ml Solution Ud) 650 mg PO Q6 PRN PRN Reason: Pain, moderate (4-7) Last Admin: 01/08/18 11:55 Dose: 650 mg Albuterol (Ventolin Hfa 90 Mcg/Actuation (8 G)) 1 puff INH RQ6 PRN PRN Reason: sob Last Admin: 01/06/18 19:25 Dose: 1 puff Apixaban (Eliquis) 2.5 mg PO BID [facility] Last Admin: 01/09/18 10:11 Dose: 2.5 mg Aspirin (Ecotrin) 81 mg PO DAILY [facility] Last Admin: 01/09/18 09:55 Dose: 81 mg Dextrose (Dextrose 50% Inj) 0 ml IV STAT PRN; Protocol PRN Reason: Hypoglycemia Protocol Dextrose (Glutose 15) 0 gm PO ONCE PRN; Protocol PRN Reason: Hypoglycemia Protocol Digoxin (Digoxin) 0.125 mg PO DAILY@1800 [facility] Last Admin: 01/08/18 17:18 Dose: Not Given Docusate Sodium (Colace) 200 mg PO [facility] Last Admin: 01/08/18 21:32 Dose: 200 mg Donepezil HCl (Aricept) 10 mg PO [facility] Last Admin: 01/08/18 22:58 Dose: 10 mg Furosemide (Lasix) 40 mg PO BID [facility] Last Admin: 01/09/18 09:55 Dose: 40 mg Gabapentin (Neurontin) 300 mg PO TID [facility] Last Admin: 01/09/18 09:55 Dose: 300 mg Glucagon (Glucagen Diagnostic Kit) 0 mg IM STAT PRN; Protocol PRN Reason: Hypoglycemia Protocol Home Med (Sildenafil [Revatio]) 20 mg PO TID [facility] Ibuprofen (Motrin Tab) 600 mg PO Q6 PRN PRN Reason: fever/pain Last Admin: 01/05/18 10:48 Dose: 600 mg Insulin Aspart (Novolog) 1 unit SC [facility] PRN Reason: Protocol Last Admin: 01/08/18 21:54 Dose: Not Given Levothyroxine Sodium (Synthroid) 100 mcg PO DAILY@0630 [facility] Last Admin: 01/09/18 06:05 Dose: 100 mcg Magnesium Oxide (Mag-Ox) 400 mg PO DAILY [facility] Last Admin: 01/09/18 09:59 Dose: 400 mg Metoprolol Tartrate (Lopressor) 25 mg PO Q12 [facility] Last Admin: 01/09/18 10:00 Dose: 25 mg Ondansetron HCl (Zofran Odt) 4 mg PO Q6 PRN PRN Reason: Nausea/Vomiting Last Admin: 01/09/18 10:11 Dose: 4 mg Ondansetron HCl (Zofran Inj) 4 mg IVP QID PRN Pantoprazole Sodium (Protonix Ec Tab) 40 mg PO DAILY [facility] Last Admin: 01/09/18 09:55 Dose: 40 mg Rivastigmine (Exelon 9.5 Mg/24 Hr Patch) 1 patch TD DAILY [facility] Last Admin: 01/09/18 10:07 Dose: 1 patch Rosuvastatin Calcium (Crestor) 5 mg PO HS [facility] Last Admin: 01/08/18 21:32 Dose: 5 mg Fluticasone/Salmeterol (Advair Diskus 250/50) 1 puff INH RQ12 [facility] Last Admin: 01/09/18 08:04 Dose: Not Given Sitagliptin Phosphate (Januvia) 50 mg PO DAILY [facility] Last Admin: 01/09/18 10:17 Dose: Not Given Spironolactone (Aldactone) 25 mg PO DAILY [facility] Last Admin: 01/08/18 10:00 Dose: 25 mg Sucralfate (Carafate Oral Susp) 1 gm PO BID [facility] Last Admin: 01/08/18 17:15 Dose: 1 gm Tolterodine Tartrate (Detrol La) 4 mg PO DAILY [facility] Last Admin: 01/09/18 10:11 Dose: 4 mg Zolpidem Tartrate (Ambien) 5 mg PO HS PRN PRN Reason: Insomnia Last Admin: 01/08/18 21:32 Dose: 5 mg - Labs Labs: 01/09/18 06:45 01/09/18 06:45 PT 15.7 SECONDS (9.7-12.2) H 01/01/18 16:27 INR 1.4 01/01/18 16:27 APTT 39 SECONDS (21-34) H 01/01/18 16:27
--- NOTE | 2018-01-09 11:44 | CP.PCM.PN ---
Subjective - Date & Time of Evaluation Date of Evaluation: 01/09/18 Time of Evaluation: 11:41 - Subjective Subjective: feels beter today no pain wlks beter no oeadeama no sob Objective - Vital Signs/Intake and Output Vital Signs (last 24 hours): Temp Pulse Resp BP Pulse Ox 98.2 F 64 20 113/72 97 01/09/18 07:00 01/09/18 07:00 01/09/18 07:00 01/09/18 10:00 01/09/18 07:00 Intake and Output: 01/09/18 01/09/18 06:59 18:59 Intake Total 120 Balance 120 - Medications Medications: Current Medications Acetaminophen (Tylenol 650mg/20.3ml Solution Ud) 650 mg PO Q6 PRN PRN Reason: Pain, moderate (4-7) Last Admin: 01/08/18 11:55 Dose: 650 mg Albuterol (Ventolin Hfa 90 Mcg/Actuation (8 G)) 1 puff INH RQ6 PRN PRN Reason: sob Last Admin: 01/06/18 19:25 Dose: 1 puff Apixaban (Eliquis) 2.5 mg PO BID [facility] Last Admin: 01/09/18 10:11 Dose: 2.5 mg Aspirin (Ecotrin) 81 mg PO DAILY [facility] Last Admin: 01/09/18 09:55 Dose: 81 mg Dextrose (Dextrose 50% Inj) 0 ml IV STAT PRN; Protocol PRN Reason: Hypoglycemia Protocol Dextrose (Glutose 15) 0 gm PO ONCE PRN; Protocol PRN Reason: Hypoglycemia Protocol Digoxin (Digoxin) 0.125 mg PO DAILY@1800 [facility] Last Admin: 01/08/18 17:18 Dose: Not Given Docusate Sodium (Colace) 200 mg PO [facility] Last Admin: 01/08/18 21:32 Dose: 200 mg Donepezil HCl (Aricept) 10 mg PO HS [facility] Last Admin: 01/08/18 22:58 Dose: 10 mg Furosemide (Lasix) 40 mg PO BID [facility] Last Admin: 01/09/18 09:55 Dose: 40 mg Gabapentin (Neurontin) 300 mg PO TID [facility] Last Admin: 01/09/18 09:55 Dose: 300 mg Glucagon (Glucagen Diagnostic Kit) 0 mg IM STAT PRN; Protocol PRN Reason: Hypoglycemia Protocol Home Med (Sildenafil [Revatio]) 20 mg PO TID [facility] Ibuprofen (Motrin Tab) 600 mg PO Q6 PRN PRN Reason: fever/pain Last Admin: 01/05/18 10:48 Dose: 600 mg Insulin Aspart (Novolog) 1 unit SC ACHS [facility] PRN Reason: Protocol Last Admin: 01/08/18 21:54 Dose: Not Given Levothyroxine Sodium (Synthroid) 100 mcg PO DAILY@0630 [facility] Last Admin: 01/09/18 06:05 Dose: 100 mcg Magnesium Oxide (Mag-Ox) 400 mg PO DAILY [facility] Last Admin: 01/09/18 09:59 Dose: 400 mg Metoprolol Tartrate (Lopressor) 25 mg PO Q12 [facility] Last Admin: 01/09/18 10:00 Dose: 25 mg Ondansetron HCl (Zofran Odt) 4 mg PO Q6 PRN PRN Reason: Nausea/Vomiting Last Admin: 01/09/18 10:11 Dose: 4 mg Ondansetron HCl (Zofran Inj) 4 mg IVP QID PRN Pantoprazole Sodium (Protonix Ec Tab) 40 mg PO DAILY [facility] Last Admin: 01/09/18 09:55 Dose: 40 mg Rivastigmine (Exelon 9.5 Mg/24 Hr Patch) 1 patch TD DAILY [facility] Last Admin: 01/09/18 10:07 Dose: 1 patch Rosuvastatin Calcium (Crestor) 5 mg PO HS [facility] Last Admin: 01/08/18 21:32 Dose: 5 mg Fluticasone/Salmeterol (Advair Diskus 250/50) 1 puff INH RQ12 [facility] Last Admin: 01/09/18 08:04 Dose: Not Given Sitagliptin Phosphate (Januvia) 50 mg PO DAILY [facility] Last Admin: 01/09/18 10:17 Dose: Not Given Spironolactone (Aldactone) 25 mg PO DAILY [facility] Last Admin: 01/08/18 10:00 Dose: 25 mg Sucralfate (Carafate Oral Susp) 1 gm PO BID [facility] Last Admin: 01/08/18 17:15 Dose: 1 gm Tolterodine Tartrate (Detrol La) 4 mg PO DAILY [facility] Last Admin: 01/09/18 10:11 Dose: 4 mg Zolpidem Tartrate (Ambien) 5 mg PO HS PRN PRN Reason: Insomnia Last Admin: 01/08/18 21:32 Dose: 5 mg - Labs Labs: 01/09/18 06:45 01/09/18 06:45 PT 15.7 SECONDS (9.7-12.2) H 01/01/18 16:27 INR 1.4 01/01/18 16:27 APTT 39 SECONDS (21-34) H 01/01/18 16:27 - Constitutional Appears: Non-toxic - Head Exam Head Exam: NORMAL INSPECTION - Eye Exam Eye Exam: Normal appearance Pupil Exam: NORMAL ACCOMODATION - ENT Exam ENT Exam: Mucous Membranes Moist - Neck Exam Neck Exam: Full ROM - Respiratory Exam Respiratory Exam: NORMAL BREATHING PATTERN - Cardiovascular Exam Cardiovascular Exam: REGULAR RHYTHM - GI/Abdominal Exam GI & Abdominal Exam: Normal Bowel Sounds - Rectal Exam Rectal Exam: NORMAL INSPECTION - Exam Exam: NORMAL INSPECTION - Extremities Exam Extremities Exam: Normal Inspection - Back Exam Back Exam: NORMAL INSPECTION - Neurological Exam Neurological Exam: Alert, Oriented x3 - Psychiatric Exam Psychiatric exam: Normal Affect - Skin Skin Exam: Normal Color Assessment and Plan - Assessment and Plan (Free Text) Assessment: s/p chfcopd dm pain feet improved will d/c home with pt and all med f/u in my ofice one weeke Plan: disc
[2018-01-09 14:10] VITALS: PULSE 72
== END 2018-01-09 14:08 | disposition home or self-care (01) | DRG 292 ==
LOC: C.ER 15:45 → C.9E 17:31 → C.6T 18:57
PROVIDERS: ADMIT Internal Medicine; ATTEND Internal Medicine
DX: I11.0 Hypertensive heart disease with heart failure (principal); K50.90 Crohn's disease, unspecified, without complications; I50.33 Acute on chronic diastolic (congestive) heart failure; F03.90 Unspecified dementia, unspecified severity, without behavioral disturbance, psychotic disturbance, mood disturbance, and anxiety; F31.9 Bipolar disorder, unspecified; Z95.0 Presence of cardiac pacemaker; R07.9 Chest pain, unspecified; E66.9 Obesity, unspecified; Z68.36 Body mass index [BMI] 36.0-36.9, adult; Z86.73 Personal history of transient ischemic attack (TIA), and cerebral infarction without residual deficits; I25.10 Atherosclerotic heart disease of native coronary artery without angina pectoris; I42.9 Cardiomyopathy, unspecified; I27.20 Pulmonary hypertension, unspecified; I48.91 Unspecified atrial fibrillation; M81.0 Age-related osteoporosis without current pathological fracture; J44.9 Chronic obstructive pulmonary disease, unspecified; E78.00 Pure hypercholesterolemia, unspecified; E03.9 Hypothyroidism, unspecified

== ENCOUNTER 2018-09-06 20:04 | Inpatient (IN) | payer MEDICARE, MEDICAID | END 2018-09-12 18:56 | disposition home or self-care (01) | DRG 292 | LOC: C.ER 20:04 → C.9E 21:27 → C.5S 22:31 | DX: I11.0 Hypertensive heart disease with heart failure (principal); K50.90 Crohn's disease, unspecified, without complications; I50.33 Acute on chronic diastolic (congestive) heart failure; H54.7 Unspecified visual loss; H40.9 Unspecified glaucoma; F03.90 Unspecified dementia, unspecified severity, without behavioral disturbance, psychotic disturbance, mood disturbance, and anxiety; I27.20 Pulmonary hypertension, unspecified; I48.91 Unspecified atrial fibrillation; I25.10 Atherosclerotic heart disease of native coronary artery without angina pectoris; J44.9 Chronic obstructive pulmonary disease, unspecified; Z79.01 Long term (current) use of anticoagulants; Z86.73 Personal history of transient ischemic attack (TIA), and cerebral infarction without residual deficits; Z91.11 Patient's noncompliance with dietary regimen; Z95.0 Presence of cardiac pacemaker; E78.5 Hyperlipidemia, unspecified; E86.0 Dehydration; F31.9 Bipolar disorder, unspecified; E11.9 Type 2 diabetes mellitus without complications; E66.9 Obesity, unspecified; Z68.36 Body mass index [BMI] 36.0-36.9, adult ==